=== PATIENT | female | born 1995 | race Caucasian/White ===

== ENCOUNTER 2017-08-28 21:28 | Emergency (ER) | payer OTHER, MEDICAID ==
[2017-08-28] MEDS: METHOCARBAMOL 500 MG TAB PO (22:43)
== END 2017-08-28 23:00 | disposition home or self-care (01) ==
LOC: M ED 21:28
DX: M62.838 Other muscle spasm (principal); J45.909 Unspecified asthma, uncomplicated
CPT/HCPCS: 99283

== ENCOUNTER 2017-12-01 21:16 | Emergency (ER) | payer OTHER | END 2017-12-01 23:35 | disposition home or self-care (01) | LOC: M ED 21:16 | DX: J02.8 Acute pharyngitis due to other specified organisms (principal); H92.03 Otalgia, bilateral; M79.1 Myalgia; J45.909 Unspecified asthma, uncomplicated | CPT/HCPCS: 87880 ==

== ENCOUNTER 2018-01-30 10:03 | Emergency (ER) | payer OTHER ==
[2018-01-30] MEDS: KETOROLAC 30 MG/ML VIAL (J1885) IV (11:27)
[2018-01-30] MEDS: dexameTHASONE 4 MG/ML 1ML VIAL (J1100) PO (11:34)
[2018-01-30] MEDS: CLINDAMYCIN 900 MG in APPROPRIATE DILUENT 1 EA IV (11:37)
[2018-01-30] MEDS: NS 1,000 ML IV (11:37)
[2018-01-30 11:41] LABS: BASO % 0.4 % (0.0-1.0); EOS % 0.5 % (0.0-3.0); HEMATOCRIT 43.8 % (36.0-47.0); HEMOGLOBIN 14.6 g/dl (12.0-15.5); IMMATURE GRANULOCYTE % 0.4 % (0-3.0); LYMPH # 0.7 10^3/uL (1.5-6.5); LYMPH % 9.7 % (24.0-44.0); MEAN CORPUSCULAR HEMOGLOBIN 31.2 pg (27.0-33.0); MEAN CORPUSCULAR HGB CONC 33.3 g/dl (32.0-36.5); MEAN CORPUSCULAR VOLUME 93.6 fl (80.0-96.0); MONO # 0.7 10^3/uL (0.0-0.8); MONO % 8.8 % (0.0-5.0); NEUTROPHILS # 6.1 10^3/uL (1.8-7.7); NEUTROPHILS % 80.2 % (36.0-66.0); PLATELET COUNT, AUTOMATED 208 10^3/uL (150-450); RED BLOOD COUNT 4.68 10^6/uL (4.00-5.40); RED CELL DISTRIBUTION WIDTH 12.1 % (11.5-14.5); WHITE BLOOD COUNT 7.5 10^3/uL (4.0-10.0)
[2018-01-30 12:18] LABS: ANION GAP 6 MEQ/L (8-16); BLOOD UREA NITROGEN 9 MG/DL (7-18); C REACTIVE PROTEIN QUANTITATIV 6.49 MG/DL (0.00-0.30); CALCIUM LEVEL 8.1 MG/DL (8.5-10.1); CARBON DIOXIDE LEVEL 26 MEQ/L (21-32); CHLORIDE LEVEL 107 MEQ/L (98-107); GLOMERULAR FILTRATION RATE > 60.0 (>60); GLUCOSE, FASTING 82 MG/DL (70-100); HCG, SERUM QUANTITATIVE < 1.0 MIU/ML; POTASSIUM SERUM 4.1 MEQ/L (3.5-5.1); SODIUM LEVEL 139 MEQ/L (136-145)
[2018-01-30] MEDS ORDERED: ISOVUE-370 76% 100ML VIAL (Q9967) As Ordered (12:48)
[2018-01-30 12:49] LABS: ERYTHROCYTE SEDIMENTATION RATE 8 mm/hr (0-20)
== END 2018-01-30 14:48 | disposition home or self-care (01) ==
LOC: M ED 10:03
DX: J03.90 Acute tonsillitis, unspecified (principal); I88.9 Nonspecific lymphadenitis, unspecified
CPT/HCPCS: Q9967

== ENCOUNTER 2018-07-04 16:30 | Emergency (ER) | payer MEDICAID, OTHER, SELFPAY ==
[~2018-07-04] VITALS: Ht 162.6 cm; Wt 113.6 kg
[~2018-07-04 16:30] MED LIST: AUGM875T28 PO; CLIN75REC PO; FLUO20CA19; IBUP-1022 PO; IBUP80TA PO; MAGICMW SSP; MAPA500T2 PO; PRED20TA PO; ROBA500T PO
[2018-07-04 18:53] LABS: APPEARANCE, URINE HAZY (CLEAR); BACTERIA, URINE AUTO NEGATIVE (NEGATIVE); BILIRUBIN, URINE AUTO NEGATIVE (NEGATIVE); BLOOD, URINE BLOOD 2+ (NEGATIVE); COLOR, URINE YELLOW (YELLOW); GLUCOSE, URINE (UA) AUTO NEGATIVE (NEGATIVE); KETONE, URINE AUTO NEGATIVE (NEGATIVE); LEUKOCYTE ESTERASE, URINE AUTO NEGATIVE (NEGATIVE); MUCUS, URINE SMALL (NEGATIVE); NITRITE, URINE AUTO NEGATIVE (NEGATIVE); PROTEIN, URINE AUTO NEGATIVE (NEGATIVE); RBC, URINE AUTO 2 /HPF (0-3); SPECIFIC GRAVITY URINE AUTO 1.025 (1.002-1.035); SQUAMOUS EPITHELIAL CELL UR AU 2 /HPF (0-6); UROBILINOGEN, URINE AUTO 0.2 mg/dL (0.0-2.0); WBC, URINE AUTO 1 /HPF (0-3)
[2018-07-04] MEDS ORDERED: NS 1,000 ML IV ONE (19:00)
[2018-07-04] MEDS ORDERED: MECLIZINE 25 MG TABLET PO ONE (19:00)
--- NOTE | 2018-07-04 19:36 | REPVR ---
EXAM: CT Head Without Contrast EXAM DATE/TIME: 07/04/2018 7:17 PM CLINICAL HISTORY: 23 years old, female; Signs and symptoms; Altered mental status/memory loss and dizziness; Additional info: Confusion today TECHNIQUE: Axial computed tomography images of the head/brain without contrast. All CT scans at this facility use at least one of these dose optimization techniques: automated exposure control; mA and/or kV adjustment per patient size (includes targeted exams where dose is matched to clinical indication); or iterative reconstruction. COMPARISON: No relevant prior studies available. FINDINGS: Brain: Normal. No hemorrhage. No significant white matter disease. No edema. Ventricles: Normal. No ventriculomegaly. Bones/joints: Unremarkable. No acute fracture. Sinuses: Visualized sinuses are unremarkable. No acute sinusitis. Mastoid air cells: Visualized mastoid air cells are unremarkable. No mastoid effusion. Soft tissues: Unremarkable. IMPRESSION: No acute intracranial abnormality. Electronically signed by: Shukri Willard On 07/04/2018 19:36:32 PM
--- NOTE | 2018-07-04 19:40 | REP ---
CHEST PA AND LATERAL: 07/04/2018. Clinical history: Confusion. Findings: No prior studies. The lung mo are well inflated. There is no infiltrate, effusion, atelectasis or mass. Heart, mediastinal and hilar contours are normal. Aorta and airway were grossly intact. Bones are unremarkable. No free air under the diaphragm. Impression: 1. No acute cardiopulmonary change. Electronically Signed by Chapincito Maier MD 07/04/2018 07:32 P
[2018-07-04 21:35] LABS: BASO % 0.5 % (0.0-1.0); EOS # 0.2 10^3/uL (0.0-0.50); EOS % 2.1 % (0.0-3.0); HEMATOCRIT 41.3 % (36.0-47.0); HEMOGLOBIN 13.8 g/dl (12.0-15.5); LYMPH # 2.3 10^3/uL (1.5-6.5); LYMPH % 30.6 % (24.0-44.0); MEAN CORPUSCULAR HGB CONC 33.4 g/dl (32.0-36.5); MEAN CORPUSCULAR VOLUME 92.8 fl (80.0-96.0); MONO # 0.5 10^3/uL (0.0-0.8); MONO % 6.8 % (0.0-5.0); NEUTROPHILS # 4.5 10^3/uL (1.8-7.7); NEUTROPHILS % 59.7 % (36.0-66.0); PLATELET COUNT, AUTOMATED 247 10^3/uL (150-450); RED BLOOD COUNT 4.45 10^6/uL (4.00-5.40); WHITE BLOOD COUNT 7.5 10^3/uL (4.0-10.0)
--- NOTE | 2018-07-04 21:45 | REPVR ---
EXAM: US Soft Tissue Head and Neck, Thyroid EXAM DATE/TIME: 07/04/2018 8:58 PM CLINICAL HISTORY: 23 years old, female; Pain; Neck pain; Additional info: Swelling/pain right neck, ? thyroiditis/nodule TECHNIQUE: Real-time ultrasound scan of the neck with image documentation. Exam focused on the thyroid. COMPARISON: CT Head without contrast 07/04/2018 7:08 PM FINDINGS: Left thyroid lobe: The left lobe of the thyroid measures 4.4 CM in length by 1.7 CM in thickness. There are 4 nodules of the left lobe of the thyroid ranging in size from 9 mm to 2.1 cm in greatest dimension. Right thyroid lobe: The right lobe of the thyroid measures 5 CM in length by 2.8 CM in thickness. There is a large solid vascular nodule replacing most of the right lobe of the thyroid which measures 4.5 CM by 3 CM. Because it is a very large dominant nodule I would recommend ultrasound-guided fine needle aspiration biopsy. The margins are mildly lobulated and the echo pattern is solid but irregular. Isthmus: The isthmus measures 7 mm in thickness. IMPRESSION: There is a 4.5 CM dominant solid and vascular nodule right lobe of the thyroid. I would recommend ultrasound-guided fine needle biopsy. Electronically signed by: Paul Benitez On 07/04/2018 21:45:14 PM
[2018-07-04 22:13] LABS: ALBUMIN 3.8 GM/DL (3.2-5.2); ALT/SGPT 31 U/L (12-78); BILIRUBIN,TOTAL 0.3 MG/DL (0.2-1.0); BLOOD UREA NITROGEN 9 MG/DL (7-18); CALCIUM LEVEL 8.2 MG/DL (8.5-10.1); CARBON DIOXIDE LEVEL 27 MEQ/L (21-32); CHLORIDE LEVEL 109 MEQ/L (98-107); CK-MB VALUE MASS < 1.0 NG/ML (<3.6); CPK CREATINE PHOSPHOKINASE 93 U/L (26-192); CREATININE FOR GFR 0.69 MG/DL (0.55-1.30); FREE THYROXINE INDEX 2.3 % (1.3-4.8); GLOMERULAR FILTRATION RATE > 60.0 (>60); GLUCOSE, FASTING 76 MG/DL (70-100); MB/CK RELATIVE INDEX 1.08 (< OR =4); SODIUM LEVEL 142 MEQ/L (136-145); T UPTAKE 31 % (30-39); THYROID STIMULATING HORMONE 0.727 uIU/ML (0.358-3.740); THYROXINE (T4) 7.5 UG/DL (4.5-12.0); TOTAL PROTEIN 6.8 GM/DL (6.4-8.2); TROPONIN I < 0.02 NG/ML (< 0.10)
[2018-07-04 22:36] VITALS: BP 123/72
[2018-07-04] MEDS ORDERED: MECL-68 PO (22:47)
--- NOTE | 2018-07-05 08:08 | ECGEPIP ---
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
[2018-07-05 13:56] LABS: VITAMIN B12 LEVEL 651 PG/ML (247-911)
--- NOTE | 2018-07-09 20:43 | ED PDOC ---
Post-Departure Follow-Up dr ramsye atkins faxed formal report of thyroid us for fu Rome García MD Jul 09, 2018 20:43
== END 2018-07-04 23:27 | disposition home or self-care (01) ==
LOC: M ED 16:30
DX: E04.1 Nontoxic single thyroid nodule (principal); R42 Dizziness and giddiness; J45.909 Unspecified asthma, uncomplicated; F33.9 Major depressive disorder, recurrent, unspecified; Z79.899 Other long term (current) drug therapy

== ENCOUNTER → 2018-09-11 | Outpatient (CLI) | payer OTHER, MEDICAID ==
[~2018-09-11] MED LIST changes: +MECL-68 PO
[2018-09-14 00:06] LABS: HSV IgM TYPES 1&2 <0.91 Ratio (0.00-0.90); HSV TYPE II IgG SPECIFIC <0.91 index (0.00-0.90)
== END ==
LOC: M SMT 13:44
PROVIDERS: ATTEND Advanced Practice Midwife
DX: Z11.3 Encounter for screening for infections with a predominantly sexual mode of transmission (principal)

== ENCOUNTER 2018-11-10 17:24 | Emergency (ER) | payer MEDICAID, OTHER ==
[~2018-11-10] VITALS: Ht 160 cm; Wt 104.5 kg
[2018-11-10 17:24] VITALS: BP 125/72
[2018-11-10] MEDS ORDERED: FLUO40CA (17:31)
[2018-11-10] MEDS ORDERED: LEVO0.1T (17:31)
[2018-11-10] MEDS ORDERED: FLUORESCEIN OPHTH 1 MG STRIP OS ONE (18:15)
[2018-11-10] MEDS ORDERED: TETRACAINE 0.5% OPHTH SOLN 4ML OS ONE (18:15)
[2018-11-10] MEDS ORDERED: CIPROFLOXACIN 0.3% OPHTH SOLN 2.5ML OS ONE (18:30)
[2018-11-10] MEDS ORDERED: CIPR0.3S OS (18:34)
== END 2018-11-10 18:48 | disposition home or self-care (01) ==
LOC: M ED 17:24
DX: S05.02XA Injury of conjunctiva and corneal abrasion without foreign body, left eye, initial encounter (principal); W26.2XXA Contact with edge of stiff paper, initial encounter; Y92.89 Other specified places as the place of occurrence of the external cause; Y99.0 Civilian activity done for income or pay; J45.909 Unspecified asthma, uncomplicated; Z79.899 Other long term (current) drug therapy; Z79.3 Long term (current) use of hormonal contraceptives

== ENCOUNTER 2019-01-11 12:39 | Day surgery (SDC) | payer OTHER ==
[~2019-01-11] VITALS: Ht 162.6 cm; Wt 104.5 kg
[~2019-01-11 12:39] MED LIST changes: +CIPR0.3S OS; +FLUO40CA; +FLUO40CA PO; +LEVO0.1T PO; +LR 1,000 ML IV ONE; -MECL-68 PO; +MECL1TAB31 PO
[2019-01-11 13:32] LABS: HEMOGLOBIN 13.1 g/dl (12.0-15.5); MEAN CORPUSCULAR HEMOGLOBIN 30.7 pg (27.0-33.0); MEAN CORPUSCULAR HGB CONC 33.6 g/dl (32.0-36.5); MEAN CORPUSCULAR VOLUME 91.3 fl (80.0-96.0); PLATELET COUNT, AUTOMATED 279 10^3/uL (150-450); RED BLOOD COUNT 4.27 10^6/uL (4.00-5.40); WHITE BLOOD COUNT 6.8 10^3/uL (4.0-10.0)
[2019-01-11 13:52] LABS: URINE PREG TEST NEGATIVE (NEGATIVE)
[2019-01-11] MEDS ORDERED: ONDANSETRON 4MG/2ML VIAL (J2405) As Ordered ONE (14:50)
[2019-01-11] MEDS ORDERED: dexameTHASONE 4 MG/ML 1ML VIAL (J1100) As Ordered ONE (14:50)
[2019-01-11] MEDS ORDERED: KETOROLAC 60 MG/2 ML VIAL (J1885) As Ordered ONE (14:50)
[2019-01-11] MEDS ORDERED: propofoL 200 MG/20 ML VIAL As Ordered ONE (14:50)
[2019-01-11] MEDS ORDERED: LIDOCAINE 2% INJ 100 MG/5 ML SDV (FOR ANES.) As Ordered ONE (14:50)
[2019-01-11] MEDS ORDERED: ROCURONIUM BROMIDE 50 MG/5 ML VIAL As Ordered ONE (14:50)
[2019-01-11] MEDS ORDERED: ACETAMINOPHEN 1000MG 100ML IV BTL (OFIRMEV) (J0131 PER 10MG) As Ordered ONE (14:50)
[2019-01-11] MEDS ORDERED: fentaNYL 100 MCG/2 ML INJECTION (J3010) As Ordered ONE ×2 (14:51→16:51)
[2019-01-11] MEDS ORDERED: MIDAZOLAM INJ 2 MG/2 ML VIAL (J2250) As Ordered ONE (14:51)
[2019-01-11] MEDS ORDERED: METOCLOPRAMIDE INJ 10MG/2ML VIAL (J2765) As Ordered ONE (15:27)
[2019-01-11] MEDS ORDERED: BUPIVACAINE HCL 0.25% 30 ML VIAL As Ordered ONE (15:40)
[2019-01-11] MEDS ORDERED: LIDOCAINE 2% JELLY 6 ML SYRINGE As Ordered ONE (16:14)
[2019-01-11] MEDS ORDERED: SUGAMMADEX SODIUM 500 MG/5 ML VIAL (BRIDION) As Ordered ONE (16:19)
[2019-01-11] MEDS ORDERED: PHENYLephrine HCL 500 MCG/5 ML (100MCG/ML) SYRINGE (J2370) As Ordered ONE (16:20)
[2019-01-11] MEDS ORDERED: DESFLURANE 240 ML INHALANT As Ordered ONE ×2 (16:34→16:35)
[2019-01-11] MEDS ORDERED: OXYC1TAB23 PO (17:07)
[2019-01-11] MEDS ORDERED: IBUP-1022 PO (17:08)
[2019-01-11 19:21] VITALS: BP 119/72
--- NOTE | 2019-01-11 23:14 | RO ---
DATE OF PROCEDURE: 01/11/2019 PREPROCEDURE DIAGNOSIS: Undesired fertility. POSTPROCEDURE DIAGNOSIS: Undesired fertility. PROCEDURE: Laparoscopic right salpingectomy. SURGEON: Charly Sarmiento MD NAIL KEGGER: ANESTHESIA: General endotracheal. ESTIMATED BLOOD LOSS: 10 mL URINE OUTPUT: 200 mL. FINDINGS: Surgically absent left ovary and fallopian tube. Normal appearing right ovary and fallopian tube. Normal upper abdomen. DESCRIPTION OF PROCEDURE: The patient was taken to the operating room where general endotracheal anesthesia was induced. She was prepped and draped in a sterile fashion in the dorsal lithotomy position. The bladder was emptied with a catheter. A sponge stick was placed in the vagina to use as a manipulator. A periumbilical incision was made with a scalpel. A Veress needle was placed through the incision while tenting up on the skin of the abdomen. Intraabdominal location of the Veress needle was assessed with the use of a saline-filled syringe. A pneumoperitoneum was created. The Veress needle was removed. 5 mm trocar using Visiport was inserted through this incision, 5 and 8 mm suprapubic port respectively were placed under direct visualization. A grasping instrument used to elevate the right fallopian tube and a LigaSure device was used to coagulate and incise broad ligament attachments to the tube. The tube was then amputated near its origin. The tube was removed through the suprapubic port. The pneumoperitoneum was released. All instruments were removed. The skin was closed with #4-0 Monocryl subcuticular sutures. Sponge, instrument and needle counts were correct.
== END 2019-01-11 19:21 | disposition home or self-care (01) ==
LOC: M SDC 12:39
PROVIDERS: ATTEND Specialist
DX: Z30.2 Encounter for sterilization (principal); J45.909 Unspecified asthma, uncomplicated; Z91.018 Allergy to other foods; Z79.899 Other long term (current) drug therapy; F32.9 Major depressive disorder, single episode, unspecified
CPT/HCPCS: 36415; 58661; 84703; 85027; 88302; J0131; J1100; J1885; J2250; J2370; J2405; J2765; J3010

== ENCOUNTER 2019-05-17 18:54 | Emergency (ER) | payer OTHER ==
[~2019-05-17] VITALS: Ht 162.6 cm; Wt 105.7 kg
[~2019-05-17 18:54] MED LIST changes: -LR 1,000 ML IV ONE; +MECL-68 PO; -MECL1TAB31 PO; +OXYC1TAB23 PO
[2019-05-17 22:20] LABS: APPEARANCE, URINE HAZY (CLEAR); BACTERIA, URINE AUTO 3+ (NEGATIVE); BILIRUBIN, URINE AUTO NEGATIVE (NEGATIVE); BLOOD, URINE BLOOD 2+ (NEGATIVE); COLOR, URINE YELLOW (YELLOW); GLUCOSE, URINE (UA) AUTO NEGATIVE (NEGATIVE); KETONE, URINE AUTO NEGATIVE (NEGATIVE); LEUKOCYTE ESTERASE, URINE AUTO 1+ (NEGATIVE); MUCUS, URINE SMALL (NEGATIVE); NITRITE, URINE AUTO POSITIVE (NEGATIVE); PROTEIN, URINE AUTO NEGATIVE (NEGATIVE); RBC, URINE AUTO 8 /HPF (0-3); SPECIFIC GRAVITY URINE AUTO 1.025 (1.002-1.035); SQUAMOUS EPITHELIAL CELL UR AU 2 /HPF (0-6); UROBILINOGEN, URINE AUTO 0.2 mg/dL (0.0-2.0); WBC, URINE AUTO 22 /HPF (0-3)
[2019-05-17 22:24] VITALS: BP 134/94
[2019-05-17] MEDS ORDERED: MACR100C43 PO (22:37)
[2019-05-17] MEDS ORDERED: NITROFURANTOIN (MACROBID) 100 MG CAP PO ONE (22:45)
== END 2019-05-17 22:56 | disposition home or self-care (01) ==
LOC: M ED 18:54
DX: N39.0 Urinary tract infection, site not specified (principal); G47.00 Insomnia, unspecified; J30.81 Allergic rhinitis due to animal (cat) (dog) hair and dander; Z91.018 Allergy to other foods

== ENCOUNTER 2019-06-23 06:43 | Emergency (ER) | payer OTHER ==
[~2019-06-23] VITALS: Ht 162.6 cm; Wt 106.1 kg
[~2019-06-23 06:43] MED LIST changes: -FLUO20CA19; +FLUO20CA22; +MACR100C43 PO; -MECL-68 PO; +MECL1TAB31 PO
[2019-06-23 06:44] VITALS: BP 140/90
[2019-06-23] MEDS ORDERED: AUGM875T28 PO (07:17)
[2019-06-23] MEDS ORDERED: AUGMENTIN 875 MG TAB PO ONE (07:30)
== END 2019-06-23 07:37 | disposition home or self-care (01) ==
LOC: M ED 06:43
DX: H66.93 Otitis media, unspecified, bilateral (principal); J30.81 Allergic rhinitis due to animal (cat) (dog) hair and dander; Z91.018 Allergy to other foods

== ENCOUNTER 2020-04-02 17:32 | Emergency (ER) | payer OTHER ==
[~2020-04-02] VITALS: Ht 162.6 cm; Wt 113.6 kg
[~2020-04-02 17:32] MED LIST changes: -CIPR0.3S OS; +CIPR0.3S6 OS
[2020-04-02 20:18] LABS: BASO % 0.3 % (0.0-1.0); EOS # 0.1 10^3/uL (0.0-0.5); EOS % 0.7 % (0.0-3.0); HEMATOCRIT 39.8 % (36.0-47.0); HEMOGLOBIN 12.7 g/dl (12.0-15.5); LYMPH # 2.2 10^3/uL (1.5-5.0); LYMPH % 20.3 % (24.0-44.0); MEAN CORPUSCULAR HEMOGLOBIN 29.6 pg (27.0-33.0); MEAN CORPUSCULAR HGB CONC 31.9 g/dl (32.0-36.5); MEAN CORPUSCULAR VOLUME 92.8 fl (80.0-96.0); MONO # 0.7 10^3/uL (0.0-0.8); MONO % 6.4 % (0.0-5.0); NEUTROPHILS # 7.7 10^3/uL (1.5-8.5); NEUTROPHILS % 72.1 % (36.0-66.0); PLATELET COUNT, AUTOMATED 257 10^3/uL (150-450); RED BLOOD COUNT 4.29 10^6/uL (4.00-5.40); WHITE BLOOD COUNT 10.7 10^3/uL (4.0-10.0)
[2020-04-02 20:45] LABS: HCG, SERUM QUALITATIVE NEGATIVE (NEGATIVE)
[2020-04-02 21:02] LABS: BLOOD UREA NITROGEN 10 MG/DL (7-18); CALCIUM LEVEL 8.4 MG/DL (8.5-10.1); CARBON DIOXIDE LEVEL 26 MEQ/L (21-32); CHLORIDE LEVEL 111 MEQ/L (98-107); CREATININE FOR GFR 0.65 MG/DL (0.55-1.30); FREE T4 0.98 NG/DL (0.76-1.46); GLOMERULAR FILTRATION RATE > 60.0 (>60); GLUCOSE, FASTING 75 MG/DL (70-100); POTASSIUM SERUM 4.2 MEQ/L (3.5-5.1); SODIUM LEVEL 143 MEQ/L (136-145); THYROID STIMULATING HORMONE 0.473 uIU/ML (0.358-3.740)
[2020-04-02] MEDS ORDERED: ISOVUE-370 76% 100ML VIAL As Ordered ONE (21:19)
--- NOTE | 2020-04-02 21:45 | REPVR ---
PROCEDURE INFORMATION: Exam: CT Neck With Contrast Exam date and time: 04/02/2020 9:32 PM Age: 24 years old Clinical indication: Dysphagia / difficulty swallowing; Additional info: Dysphaia/fells throat swollen TECHNIQUE: Imaging protocol: Computed tomography images of the neck with intravenous contrast. Radiation optimization: All CT scans at this facility use at least one of these dose optimization techniques: automated exposure control; mA and/or kV adjustment per patient size (includes targeted exams where dose is matched to clinical indication); or iterative reconstruction. Contrast material: ISOVUE 370; Contrast volume: 75 ml; Contrast route: INTRAVENOUS (IV); COMPARISON: CT Neck with contrast 01/30/2018 12:41 PM FINDINGS: Paranasal sinuses: Small mucous retention cyst or polyp involving the right maxillary sinus. Nasopharynx: Unremarkable. Oropharynx: There is prominence of both palatine tonsils. No inflammatory change or drainable fluid collection. Hypopharynx: Unremarkable. Larynx: Unremarkable. Normal epiglottis. Retropharyngeal space: Unremarkable. Submandibular/Parotid glands: Normal. Glands are normal in size. Thyroid: 3.5 cm right thyroid mass. 1.2 cm left thyroid nodule. Lymph nodes: Unremarkable. No lymphadenopathy. Trachea: Visualized trachea is unremarkable. Lungs: Unremarkable as visualized. Bones/joints: Unremarkable. No acute fracture. Soft tissues: See "Oropharynx" finding. IMPRESSION: 1. No acute abnormality. 2. 3.5 cm right thyroid mass. Biopsy may be considered if not already performed. COMMENTS: Consistent with the [employer]'s Incidental Findings Committee white paper (J Am Emilio Radiol 2015): In patients under 35 years old with an incidental thyroid nodule equal to or greater than [address], MRI or extrathyroidal US, further evaluation with dedicated thyroid US is recommended for patients with normal life expectancy and without comorbidities. For smaller nodules without suspicious features, no further evaluation or follow up is recommended. Electronically signed by: Camilo Robledo On 04/02/2020 21:45:04 PM
[2020-04-02 22:27] VITALS: BP 132/83
--- NOTE | 2020-04-04 17:05 | ED PDOC ---
Post-Departure Follow-Up familia abreu and cholo faxed formal report of ct neck for fu geraldog Rome Arreola MD Apr 04, 2020 17:05
== END 2020-04-02 22:34 | disposition home or self-care (01) ==
LOC: M ED 17:32
DX: E07.89 Other specified disorders of thyroid (principal); J30.81 Allergic rhinitis due to animal (cat) (dog) hair and dander; Z91.018 Allergy to other foods
CPT/HCPCS: 70491; 80048; 84439; 84443; 84703; 85025; 87880; 99285; Q9967

== ENCOUNTER → 2020-07-16 | Outpatient (CLI) | payer OTHER ==
--- NOTE | 2020-07-16 11:37 | REP ---
INDICATION: THYROID MASS COMPARISON: 07/04/2018 TECHNIQUE: Steel scale and color evaluation of the thyroid gland using the linear high frequency transducer. FINDINGS: The right thyroid lobe measures 4.7 x 3.5 x 3.2 cm and is dominated by large heterogeneous vascular mass measuring roughly 3.8 x 2.8 x 2.9 cm. Isthmus measures 6 mm in width with a new 3 mm cyst. Left thyroid lobe measures 4.0 x 2.0 x 1.9 cm with 1.4 x 1.3 x 0.9 cm complex vascular mid/upper pole lesion relatively stable compared to prior examination, 2.4 x 1.6 x 1.6 cm heterogeneous midpole lesion relatively unchanged from prior examination, and 1.1 x 1.0 x 1.0 cm lower pole heterogeneous nodule essentially unchanged from prior examination. IMPRESSION: Thyroid nodules as described above relatively similar to prior examination <Electronically signed by Stanislav Gonzales > 07/16/20 [id number]
== END ==
LOC: M RAD 08:18
DX: E07.9 Disorder of thyroid, unspecified (principal)

== ENCOUNTER 2021-01-30 12:21 | Emergency (ER) | payer OTHER ==
[~2021-01-30] VITALS: Ht 162.6 cm; Wt 113.6 kg
[~2021-01-30 12:21] MED LIST changes: +BUPR150T5; +LORA-674
[2021-01-30 12:22] VITALS: BP 144/100
[2021-01-30] MEDS ORDERED: EUTH175T (12:30)
--- NOTE | 2021-01-30 13:34 | REP ---
INDICATION: pain/injury. COMPARISON: None. TECHNIQUE: Four views FINDINGS: No acute fracture or destructive osseous lesion. There is a slight ulnar minus variant. IMPRESSION: No acute osseous abnormality. <Electronically signed by Stuart Gardner > 01/30/21 [id number]
[2021-01-30 14:30] LABS: APPEARANCE, URINE CLEAR (CLEAR); BILIRUBIN, URINE AUTO NEGATIVE (NEGATIVE); BLOOD, URINE BLOOD 1+ (NEGATIVE); COLOR, URINE YELLOW (YELLOW); GLUCOSE, URINE (UA) AUTO NEGATIVE (NEGATIVE); KETONE, URINE AUTO NEGATIVE (NEGATIVE); LEUKOCYTE ESTERASE, URINE AUTO NEGATIVE (NEGATIVE); NITRITE, URINE AUTO NEGATIVE (NEGATIVE); PROTEIN, URINE AUTO NEGATIVE (NEGATIVE); SPECIFIC GRAVITY URINE AUTO 1.021 (1.002-1.035); UROBILINOGEN, URINE AUTO 0.2 mg/dL (0.0-2.0)
[2021-01-30 14:34] LABS: BACTERIA, URINE AUTO NEGATIVE (NEGATIVE); MUCUS, URINE SMALL (NEGATIVE); RBC, URINE AUTO 7 /HPF (0-3); SQUAMOUS EPITHELIAL CELL UR AU 2 /HPF (0-6); WBC, URINE AUTO 1 /HPF (0-3)
[2021-01-30 14:56] LABS: ACETONE/KETONE 1.05 MG/DL (<2.81); ALBUMIN 3.2 GM/DL (3.2-5.2); ALT/SGPT 32 U/L (12-78); BILIRUBIN,DIRECT 0.1 MG/DL (0.0-0.2); BILIRUBIN,TOTAL 0.2 MG/DL (0.2-1.0); BLOOD UREA NITROGEN 9 MG/DL (7-18); CALCIUM LEVEL 8.1 MG/DL (8.5-10.1); CARBON DIOXIDE LEVEL 24 MEQ/L (21-32); CHLORIDE LEVEL 110 MEQ/L (98-107); CREATININE FOR GFR 0.68 MG/DL (0.55-1.30); FREE T4 1.56 NG/DL (0.76-1.46); GLOMERULAR FILTRATION RATE > 60.0 (>60); GLUCOSE, FASTING 85 MG/DL (70-100); POTASSIUM SERUM 4.1 MEQ/L (3.5-5.1); SODIUM LEVEL 142 MEQ/L (136-145); THYROID STIMULATING HORMONE < 0.005 uIU/ML (0.358-3.740); TOTAL PROTEIN 6.2 GM/DL (6.4-8.2)
[2021-01-30] MEDS ORDERED: NAPR-837 PO (15:24)
[2021-01-30] MEDS ORDERED: LEVO112T2 PO (15:24)
== END 2021-01-30 15:40 | disposition home or self-care (01) ==
LOC: M ED 12:21
DX: S63.91XA Sprain of unspecified part of right wrist and hand, initial encounter (principal); X50.3XXA Overexertion from repetitive movements, initial encounter; Y92.89 Other specified places as the place of occurrence of the external cause; Y93.89 Activity, other specified; R94.6 Abnormal results of thyroid function studies; Z85.850 Personal history of malignant neoplasm of thyroid; Z90.89 Acquired absence of other organs; Z91.048 Other nonmedicinal substance allergy status; Z88.1 Allergy status to other antibiotic agents; Z91.018 Allergy to other foods

== ENCOUNTER 2021-02-04 14:59 | Emergency (ER) | payer OTHER ==
[~2021-02-04] VITALS: Ht 162.6 cm; Wt 115.9 kg
[~2021-02-04 14:59] MED LIST changes: +EUTH175T; +LEVO112T2 PO; +NAPR-837 PO
[2021-02-04 15:00] VITALS: BP 151/100
== END 2021-02-04 18:20 | disposition left against medical advice (07) ==
LOC: M ED 14:59
DX: Z53.21 Procedure and treatment not carried out due to patient leaving prior to being seen by health care provider (principal)

== ENCOUNTER 2021-04-02 10:52 | Emergency (ER) | payer OTHER ==
[~2021-04-02] VITALS: Ht 162.6 cm; Wt 115.8 kg
--- OUTSIDE RECORDS SUMMARY | 2021-04-02 11:03 | CCD ---
Author Author [facility] Organization [facility] Address Unknown Phone Unavailable Care Team Providers Care Branch Account Executive Name Role Phone Nikole Joaquin Unavailable Unavailable Marzouk, F Ousmane Unavailable Unavailable Marzouk, F Ousmane Unavailable Unavailable Marzouk, F Ousmane Unavailable Unavailable Marzouk, F Ousmane Unavailable Unavailable Marzouk, F Ousmane Unavailable Unavailable Marzouk, F Ousmane Unavailable Unavailable Marzouk, F Ousmane Unavailable Unavailable Marzouk, F Ousmane Unavailable Unavailable Marzouk, F Ousmane Unavailable Unavailable Marzouk, F Ousmane Unavailable Unavailable Marzouk, F Ousmane Unavailable Unavailable Marzouk, F Ousmane Unavailable Unavailable Marzouk, F Ousmane Unavailable Unavailable Marzouk, F Ousmane Unavailable Unavailable Marzouk, F Ousmane Unavailable Unavailable Marzouk, F Ousmane Unavailable Unavailable Marzouk, F Ousmane Unavailable Unavailable Marzouk, F Ousmane Unavailable Unavailable Marzouk, F Ousmane Unavailable Unavailable Marzouk, F Ousmane Unavailable Unavailable Marzouk, F Ousmane Unavailable Unavailable Marzouk, F Ousmane Unavailable Unavailable Marzouk, F Ousmane Unavailable Unavailable Marzouk, F Ousmane Unavailable Unavailable Marzouk, F Ousmane Unavailable Unavailable Marzouk, F Ousmane Unavailable Unavailable Marzouk, F Ousmane Unavailable Unavailable Marzouk, F Ousmane Unavailable Unavailable Marzouk, F Ousmane Unavailable Unavailable Marzouk, F Ousmane Unavailable Unavailable Marzouk, F Ousmane Unavailable Unavailable Marzouk, F Ousmane Unavailable Unavailable Marzouk, F Ousmane Unavailable Unavailable Marzouk, F Ousmane Unavailable Unavailable Marzouk, F Ousmane Unavailable Unavailable Marzouk, F Ousmane Unavailable Unavailable Marzouk, F Ousmane Unavailable Unavailable Marzouk, F Ousmane Unavailable Unavailable Marzouk, F Ousmane Unavailable Unavailable Marzouk, F Ousmane Unavailable Unavailable Marzouk, F Ousmane Unavailable Unavailable Marzouk, F Ousmane Unavailable Unavailable Marzouk, F Ousmane Unavailable Unavailable Marzouk, F Ousmane Unavailable Unavailable Marzouk, F Ousmane Unavailable Unavailable Marzouk, F Ousmane Unavailable Unavailable Marzouk, F Ousmane Unavailable Unavailable Marzouk, F Ousmane Unavailable Unavailable Marzouk, F Ousmane Unavailable Unavailable Marzouk, F Ousmane Unavailable Unavailable Marzouk, F Ousmane Unavailable Unavailable Marzouk, F Ousmane Unavailable Unavailable Marzouk, F Ousmane Unavailable Unavailable Marzouk, F Ousmane Unavailable Unavailable Marzouk, F Ousmane Unavailable Unavailable Marzouk, F Ousmane Unavailable Unavailable Marzouk, F Ousmane Unavailable Unavailable Marzouk, F Ousmane Unavailable Unavailable Marzouk, F Ousmane Unavailable Unavailable Marzouk, F Ousmane Unavailable Unavailable Marzouk, F Ousmane Unavailable Unavailable Marzouk, F Ousmane Unavailable Unavailable Marzouk, F Ousmane Unavailable Unavailable Marzouk, F Ousmaen Unavailable Unavailable Marzouk, F Ousmane Unavailable Unavailable Marzouk, F Ousmane Unavailable Unavailable Marzouk, F Ousmane Unavailable Unavailable Arnett, M Shazia PA-C Unavailable Unavailable Arnett, M Shazia PA-C Unavailable Unavailable Arnett, M Shazia PA-C Unavailable Unavailable Arnett, M Shazia PA-C Unavailable Unavailable Arnett, M Shazia PA-C Unavailable Unavailable Arnett, M Shazia PA-C Unavailable Unavailable Arnett, M Shazia PA-C Unavailable Unavailable Arnett, M Shazia PA-C Unavailable Unavailable Arnett, M Shazia PA-C Unavailable Unavailable Arnett, M Shazia PA-C Unavailable Unavailable Arnett, M Shazia PA-C Unavailable Unavailable Arnett, M Shazia PA-C Unavailable Unavailable Arnett, M Shazia PA-C Unavailable Unavailable Arnett, M Shazia PA-C Unavailable Unavailable Arnett, M Shazia PA-C Unavailable Unavailable Arnett, M Shazia PA-C Unavailable Unavailable Arnett, M Shazia PA-C Unavailable Unavailable Arnett, M Shazia PA-C Unavailable Unavailable Arnett, M Shazia PA-C Unavailable Unavailable Arnett, M Shazia PA-C Unavailable Unavailable Arnett, M Shazia PA-C Unavailable Unavailable Arnett, M Shazia PA-C Unavailable Unavailable Arnett, M Shazia PA-C Unavailable Unavailable Arnett, M Shazia PA-C Unavailable Unavailable Arnett, M Shazia PA-C Unavailable Unavailable Arnett, M Shazia PA-C Unavailable Unavailable Arnett, M Shazia PA-C Unavailable Unavailable Arnett, M Shazia PA-C Unavailable Unavailable Arnett, M Shazia PA-C Unavailable Unavailable Arnett, M Shazia PA-C Unavailable Unavailable Arnett, M Shazia PA-C Unavailable Unavailable Arnett, M Shazia PA-C Unavailable Unavailable Arnett, M Shazia PA-C Unavailable Unavailable Arnett, M Shazia PA-C Unavailable Unavailable Arnett, M Shazia PA-C Unavailable Unavailable Arnett, M Shazia PA-C Unavailable Unavailable Arnett, M Shazia PA-C Unavailable Unavailable Arnett, M Shazia PA-C Unavailable Unavailable Nalla, Jenny Unavailable Nalla, Jenny Unavailable Nalla, Jenny Unavailable JASON, Dang TELLO MD Unavailable Unavailable JASON, Dang TELLO MD Unavailable Unavailable JASON, Dang TELLO MD Unavailable Unavailable JASON, Dang TELLO MD Unavailable Unavailable JASON, Dang TELLO MD Unavailable Unavailable JASON, Dang TELLO MD Unavailable Unavailable JASON, Dang TELLO MD Unavailable Unavailable JASON, Dang TELLO MD Unavailable Unavailable JASON, Dang TELLO MD Unavailable Unavailable JASON, Dang TELLO MD Unavailable Unavailable JASON, Dang TELLO MD Unavailable Unavailable JASON, Dang TELLO MD Unavailable Unavailable JASON, Dang TELLO MD Unavailable Unavailable JASON, Dang TELLO MD Unavailable Unavailable JASON, Dang TELLO MD Unavailable Unavailable JASON, Dang TELLO MD Unavailable Unavailable JASON, Dang TELLO MD Unavailable Unavailable JASON, Dang TELLO MD Unavailable Unavailable JASON, Dang TELLO MD Unavailable Unavailable JASON, Dang TELLO MD Unavailable Unavailable JASON, Dang TELLO MD Unavailable Unavailable JASON, Dang TELLO MD Unavailable Unavailable JASON, Dang TELLO MD Unavailable Unavailable JASON, Dang TELLO MD Unavailable Unavailable JASON, Dang TELLO MD Unavailable Unavailable JASON, Dang TELLO MD Unavailable Unavailable JASON, Dang TELLO MD Unavailable Unavailable JASON, Dang TELLO MD Unavailable Unavailable JASON, aDng TELLO MD Unavailable Unavailable JASON, Dang TELLO MD Unavailable Unavailable JASON, Dang TELLO MD Unavailable Unavailable JASON, Dang TELLO MD Unavailable Unavailable JASON, Dang TELLO MD Unavailable Unavailable JASON, Dang TELLO MD Unavailable Unavailable JASON, Dang TELLO MD Unavailable Unavailable JASON, Dang TELLO MD Unavailable Unavailable JASON, Dang TELLO MD Unavailable Unavailable JASON, Dang TELLO MD Unavailable Unavailable JASON, Dang TELLO MD Unavailable Unavailable JASON, Dang TELLO MD Unavailable Unavailable JASON, Dang TELLO MD Unavailable Unavailable JASON, Dang TELLO MD Unavailable Unavailable JASON, Dang TELLO MD Unavailable Unavailable JASON, Dang TELLO MD Unavailable Unavailable JASON, Dang TELLO MD Unavailable Unavailable JASON, Dang TELLO MD Unavailable Unavailable JASON, Dang TELLO MD Unavailable Unavailable JASON, Dang TELLO MD Unavailable Unavailable JASON, Dang TELLO MD Unavailable Unavailable JASON, Dang TELLO MD Unavailable Unavailable JASON, Dang TELLO MD Unavailable Unavailable JASON, Dang TELLO MD Unavailable Unavailable JASON, Dang TELLO MD Unavailable Unavailable JASON, Dang TELLO MD Unavailable Unavailable JASON, Dang TELLO MD Unavailable Unavailable JASON, Dang TELLO MD Unavailable Unavailable JASON, Dang TELLO MD Unavailable Unavailable JASON, Dang TELLO MD Unavailable Unavailable Terell KC Unavailable Unavailable MARROCKY, Shefali BURNHAM MD Unavailable Unavailable MARZOUK, A CHACHA MD Unavailable Unavailable MARZOUK, A CHACHA MD Unavailable Unavailable MARZOUK, A CHACHA MD Unavailable Unavailable MARZOUK, A CHACHA MD Unavailable Unavailable MARZOUK, A CHACHA MD Unavailable Unavailable MARZOUK, A CHACHA MD Unavailable Unavailable MARZOUK, A CHACHA MD Unavailable Unavailable MARZOUK, A CHACHA MD Unavailable Unavailable MARZOUK, A CHACHA MD Unavailable Unavailable MARZOUK, A CHACHA MD Unavailable Unavailable MARZOUK, A CHACHA MD Unavailable Unavailable MARZOUK, A CHACHA MD Unavailable Unavailable MARZOUK, A CHACHA MD Unavailable Unavailable MARZOUK, A CHACHA MD Unavailable Unavailable MARZOUK, A CHACHA MD Unavailable Unavailable MARZOUK, A CHACHA MD Unavailable Unavailable MARZOUK, A CHACHA MD Unavailable Unavailable MARZOUK, A CHACHA MD Unavailable Unavailable MARZOUK, A CHACHA MD Unavailable Unavailable MARZOUK, A CHACHA MD Unavailable Unavailable MARZOUK, A CHACHA MD Unavailable Unavailable MARZOUK, A CHACHA MD Unavailable Unavailable MARZOUK, A CHACHA MD Unavailable Unavailable MARZOUK, A CHACHA MD Unavailable Unavailable MARZOUK, A CHACHA MD Unavailable Unavailable MARZOUK, A CHACHA MD Unavailable Unavailable MARZOUK, A CHACHA MD Unavailable Unavailable MARZOUK, A CHACHA MD Unavailable Unavailable MARZOUK, A CHACHA MD Unavailable Unavailable MARZOUK, A CHACHA MD Unavailable Unavailable MARZOUK, A CHACHA MD Unavailable Unavailable MARZOUK, A CHACHA MD Unavailable Unavailable MARZOUK, A CHACHA MD Unavailable Unavailable MARZOUK, A CHACHA MD Unavailable Unavailable MARZOUK, A CHACHA MD Unavailable Unavailable MARZOUK, A CHACHA MD Unavailable Unavailable MARZOUK, A CHACHA MD Unavailable Unavailable MARZOUK, A CHACHA MD Unavailable Unavailable MARZOUK, A CHACHA MD Unavailable Unavailable MARZOUK, A CHACHA MD Unavailable Unavailable MARZOUK, A CHACHA MD Unavailable Unavailable MARZOUK, A CHACHA MD Unavailable Unavailable MARZOUK, A CHACHA MD Unavailable Unavailable MARZOUK, A CHACHA MD Unavailable Unavailable MARZOUK, A CHACHA MD Unavailable Unavailable MARZOUK, A CHACAH MD Unavailable Unavailable MARZOUK, A CHACHA MD Unavailable Unavailable MARZOUK, A CHACHA MD Unavailable Unavailable MARZOUK, A CHACHA MD Unavailable Unavailable MARZOUK, A CHACHA MD Unavailable Unavailable MARZOUK, A CHACHA MD Unavailable Unavailable MARZOUK, Shefali BURNHAM MD Unavailable Unavailable MARZOUK, Shefali BURNHAM MD Unavailable Unavailable MARZOUK, Shefali BURNHAM MD Unavailable Unavailable MARZOUK, Shefali BURNHAM MD Unavailable Unavailable MARZOUK, Shefali BURNHAM MD Unavailable Unavailable MARZOUK, Shefali BURNHAM MD Unavailable Unavailable MARZOUK, Shefali BURNHAM MD Unavailable Unavailable MARZOUK, Shefali BURNHAM MD Unavailable Unavailable MARZOUK, Shefali BURNHAM MD Unavailable Unavailable MARZOUK, Shefali BURNHAM MD Unavailable Unavailable MARZOUK, Shefali BURNHAM MD Unavailable Unavailable MARZOUK, Shefali BURNHAM MD Unavailable Unavailable NALLA, JENNY Unavailable Unavailable Ruffin, M Christopher PA-C Unavailable Unavailable Ruffin, M Christopher PA-C Unavailable Unavailable Ruffin, M Christopher PA-C Unavailable Unavailable Ruffin, M Christopher PA-C Unavailable Unavailable Ruffin, M Christopher PA-C Unavailable Unavailable Ruffin, M Christopher PA-C Unavailable Unavailable Ruffin, M Christopher PA-C Unavailable Unavailable Ruffin, M Christopher PA-C Unavailable Unavailable Ruffin, M Christopher PA-C Unavailable Unavailable Ruffin, M Christopher PA-C Unavailable Unavailable Ruffin, M Christopher PA-C Unavailable Unavailable Ruffin, M Christopher PA-C Unavailable Unavailable Ruffin, M Christopher PA-C Unavailable Unavailable Ruffin, M Christopher PA-C Unavailable Unavailable Ruffin, M Christopher PA-C Unavailable Unavailable Ruffin, M Christopher PA-C Unavailable Unavailable Ruffin, M Christopher PA-C Unavailable Unavailable Ruffin, M Christopher PA-C Unavailable Unavailable Ruffin, M Christopher PA-C Unavailable Unavailable Ruffin, M Christopher PA-C Unavailable Unavailable Ruffin, M Christopher PA-C Unavailable Unavailable Ruffin, M Christopher PA-C Unavailable Unavailable Ruffin, M Christopher PA-C Unavailable Unavailable Ruffin, M Christopher PA-C Unavailable Unavailable Ruffin, M Christopher PA-C Unavailable Unavailable Ruffin, M Christopher PA-C Unavailable Unavailable SEAN .Neal RODGER . Unavailable Unavailable Neal DELGADO . Unavailable Unavailable Robert Lorenzo MD Unavailable Unavailable Robert Lorenzo MD Unavailable Unavailable Robert Lorenzo MD Unavailable Unavailable Robert Lorenzo MD Unavailable Unavailable Re-disclosure Warning The records that you are about to access may contain information from federally-assisted alcohol or drug abuse programs. If such information is present, then the following federally mandated warning applies: This information has been disclosed to you from records protected by federal confidentiality rules (42 CFR part 2). The federal rules prohibit you from making any further disclosure of this information unless further disclosure is expressly permitted by the written consent of the person to whom it pertains or as otherwise permitted by 42 CFR part 2. A general authorization for the release of medical or other information is NOT sufficient for this purpose. The Federal rules restrict any use of the information to criminally investigate or prosecute any alcohol or drug abuse patient.The records that you are about to access may contain highly sensitive health information, the redisclosure of which is protected by Article 27-F of the [facility] Public Health law. If you continue you may have access to information: Regarding HIV / AIDS; Provided by facilities licensed or operated by the [facility] Office of Mental Health; or Provided by the [facility] Office for People With Developmental Disabilities. If such information is present, then the following [facility] mandated warning applies: This information has been disclosed to you from confidential records which are protected by state law. State law prohibits you from making any further disclosure of this information without the specific written consent of the person to whom it pertains, or as otherwise permitted by law. Any unauthorized further disclosure in violation of state law may result in a fine or retirement sentence or both. A general authorization for the release of medical or other information is NOT sufficient authorization for further disc losure. Allergies and Adverse Reactions Type Description Substance Reaction Status Data Source(s ) Food allergy ONION-IN FOOD ONION-IN FOOD N&V [facility] Propensity to adverse reactions VENLAFAXINE VENLAFAXINE [facility] Drug Allergy Drug Allergy NKDA MEDENT ([facility]) Family History Family Member Name Family Member Gender Family Member Status Date o f Status Description Data Source(s) Unknown Male Problem [facility]ENT ([facility] ) Encounters Encounter Providers Location Date Indications Data Source(s ) Outpatient Attender: Jenny JacksonAttender: JENNY JACKSON 09/09/2021 12:00:00 AM [facility] Outpatient Attender: Ousmane Ward 05/04/2021 12:00:00 AM [facility] Outpatient Attender: Nikole MAXWELL 09:17:18 AM EST - 04/02/2021 10:29:47 AM EST [facility] ([facility]) Outpatient Attender: Jenny Hopkinsender: JENNY JACKSONReferrer: RODGER Jarquin [id number] 03/04/2021 12:00:00 AM EDT - 03/04/2021 02:05:43 PM EDT [facility] Outpatient Attender: Rodrigo Ruffin PA-C 12/14/2020 11:54:35 AM EDT - 12/14/2020 01:23:06 PM EDT [facility] ([facility]) Outpatient Attender: Ousmane Ward [id number] 11/03/2020 12:00:00 AM [facility] Outpatient Attender: Ousmane Grayson er: Ousmane WardConsultant: OMER GOMEZ MD [id number] 10/05/2020 12:00:00 AM EDT - 10/05/2020 12:00:00 AM EDT Disorder of thyroid, unspecified [facility] Disorder of thyroid, unspecified Patient discharged. Outpatient Attender: NESTOR KCReferrer: CHACHA WARD MD [id number] 09/28/2020 12:00:00 AM [facility] Outpatient Attender: Ousmane Ward [id number] 12:00:00 AM EDT - 08/05/2020 03:07:29 PM [facility] Outpatient Admitter: Ousmane WardReferrer: Ousmane Ward 07/31/2020 12:00:00 AM EDT Nontoxic single thyroid nodule [facility] Nontoxic single thyroid nodule Outpatient Attender: Mary Lorenzo MD [id number] 07/16/2020 04 :48:02 PM [facility] Outpatient Attender: Ousmane [id number] 12:00:00 AM EST - 05/19/2020 03:41:00 PM [facility] Outpatient Attender: Shazia LACEYCConsultant: Shazia valdes PA-C 05/12/2020 09:47:00 AM [facility] - 05/12/2020 09:47:00 AM [facility] Outpatient Attender: Shazia LACEYCConsultant: Shazia valdes PA-C 04/14/2020 02:45:00 PM [facility] - 04/14/2020 03:53:00 PM [facility] Patient discharged. Outpatient Attender: hSazia Arnett PA-C 03/16 01:12:00 PM [facility] - 04/06/2020 01:12:00 PM [facility] Medications Medication Brand Name Start Date Product Form Dose Route Admi nistrative Instructions Pharmacy Instructions Status Indications Reaction Description Data Source(s) Ondansetron 4 MG Disintegrating Oral Tab let Ondansetron 4 MG Oral Tablet Disintegrating (ZOFRAN-ODT) Ondansetron 4 MG Oral Tablet Disintegrat ing (ZOFRAN-ODT) 10/05/2020 12:00:00 AM EDT 4 mg Oral activ e Take 1 tablet by mouth every 8 (eight) hours as needed for Nausea for up to 2 doses [facility] Levothyroxine Sodium 0.175 MG Oral Table t Levothyroxine Sodium 175 MCG Oral Tablet (SYNTHROID) Levothyroxine Sodium 175 MCG Oral Tablet (SYNTHROID) 10/05/2020 12:00:00 AM EDT 175 ug Oral active Take 1 tablet by mouth Daily [facility] Calcium Carbonate 500 MG Chewable Tablet Calcium Carbonate Antacid 500 MG Oral Tablet Chewable (Tums) Calcium Carbonate Antacid 500 MG Oral Ta blet Chewable (Tums) 10/05/2020 12:00:00 AM EDT 1000 mg Oral active Chew 2 tablets by Mouth Three times daily [facility] 0.4 ML Enoxaparin sodium 100 MG/ML Prefi lled Syringe Enoxaparin Sodium 40 MG/0.4ML Subcutaneous Solution (LOVENOX) Enoxaparin Sodium 40 MG/0.4ML Subcutaneous Solution (LOVENOX) 10/05/2020 12:00:00 AM EDT 40 mg Subcutaneous active Inject 0.4 mLs into the s kin daily [facility] Ibuprofen 400 MG Oral Tablet Ibuprofen 400 MG Oral Tab let (MOTRIN) Ibuprofen 400 MG Oral Tablet (MOTRIN) 10/05/2020 12:00:00 AM EDT 400 mg Oral active Take 1 tablet by mouth every 6 (six) hours as needed for Pain [facility] Acetaminophen 325 MG Oral Tablet Acetaminophen 325 MG Oral Tablet (Tylenol) Acetaminophen 325 MG Oral Tablet (Tylenol) 10/05/2020 12:00:00 AM EDT 650 mg Oral active Take 2 tablets by mouth every 6 (six) hours as needed for Pain [facility] Docusate Sodium 100 MG Oral Capsule Docu sate Sodium 100 MG Oral Capsule (Colace) Docusate Sodium 100 MG Oral Capsule (Colace) 10/05/2020 12:00:00 AM EDT 100 mg Oral active Take 1 cap nafisa by mouth Two times daily as needed for Constipation [facility] bacitracin zinc 0.5 UNT/MG Topical Ointm ent Bacitracin 500 UNIT/GM External Ointment Bacitracin 500 UNIT/GM External Ointment 10/05/2020 12:00:00 AM EDT active Apply to surgical incisi on three times daily for one week [facility] Acetaminophen 325 MG / Hydrocodone Chelo trate 5 MG Oral Tablet HYDROcodone- Acetaminophen 5-325 MG Oral Tablet (LORTAB) HYDROcodone-Acetaminophen 5-325 MG Oral Tablet (LORTAB) 10/05/2020 12:00:00 AM EDT 1 {tbl} Oral active Take 1 tablet by mouth every 6 (six) hours as needed for Pain for up to 3 days, Max Daily Dose: 4 tablets [facility] dextrose 5 % and sodium chloride 0.45 % infusion [id number] 0 10/03/2020 09:30:00 AM EDT Intravenous completed at 50 mL/hr, Intravenous, Continuous, Starting on 10/03/20 at 0930, For 6 hours
Saline lock with good PO intake.
[facility] Medication administered onsite 0.4 ML Enoxaparin sodium 100 MG/ML Prefi lled Syringe enoxaparin sodium (LOVENOX) injection 40 mg enoxaparin sodium (LOVENOX) injection 40 mg 10/03/2020 09:00:00 AM EDT 40 mg Subcutaneous active 40 mg, Subcutaneous, Every 12 hours Standard (2 times per day), First dose (after last modification) on 10/03/20 at 0900, For 8 doses
Non Patients: body weight < 150 kg, CrCl > 30 mL/min. Guidelines for Lovenox: MUST wait 24 hours before starting Enoxaparin if patient has epidural catheter. D/C Enoxaparin 10-12 hours prior to removing epidural catheter. May restart Enoxaparin 24 hours after epidural catheter has been removed.
[facility] Medication administered onsite Levothyroxine Sodium 0.15 MG Oral Tablet levothyroxine (SYNTHROID) tablet 150 mcg levothyroxine (SYNTHROID) tablet 150 mcg 10/03/2020 06:00:00 AM EDT 150 ug Oral active 150 mcg, O ral, Daily at 0600, First dose on 10/03/20 at 0600, For 30 days [facility] Medication administered onsite Ibuprofen 400 MG Oral Tablet ibuprofen (MOTRIN) tablet 400 mg ibuprofen (MOTRIN) tablet 400 mg 10/03/2020 04:00:00 AM EDT 400 mg Oral acti ve 400 mg, Oral, Every 6 hours, First dose on 10/03/20 at 0400, For 10 days
Take with food if possible. Alternate with tylenol if ordered.
[facility] Medication administered onsite Calcium Carbonate 500 MG Chewable Tablet calcium carbonate (TUMS) chewable tablet 1,000 mg calcium carbonate (TUMS) chewable tablet 1,000 mg 09/13 12:00:00 AM EDT 1000 mg Oral active 1,000 mg, Oral, After Meals, First dose on 10/03/20 at 0000, For 14 days [facility] Medication administered onsite Acetaminophen 32 MG/ML Oral Solution fredrick taminophen (TYLENOL) 160 MG/5ML solution (ADULT) 650 mg acetaminophen (TYLENOL) 160 MG/5ML solution (ADULT) 65 0 mg 10/03/2020 12:00:00 AM EDT 650 mg Oral aborted 650 mg, Oral, Every 6 hours, First dose on 10/03/20 at 0000, For 30 days
Maximum dose of acetaminophen is 3,000 mg from all sources in 24 hours.
[facility] Medication administered onsite ondansetron (ZOFRAN-ODT) disintegrating tablet 4 mg 10/02/2020 08:41:21 PM EDT 4 mg Oral active [Order 1 Start] Name: ondansetron (ZOFRAN-ODT) disintegrating tablet 4 mg Signed Summary: 4 mg, Oral, Every 8 hours PRN, Nausea, Vomiting, Starting on Mon10/02/20 at 2040, For 30 days
Dissolve on tongue.
[Order 1 End] [Order 2 Start] Name: ondansetron (ZOFRAN) injection 4 mg Signed Summary: 4 mg, Intravenous, Every 8 hours PRN, Nausea, Vomiting, Starting on Mon10/02/20 at 2040, For 30 days [Order 2 End] [facility] Medication administered onsite oxyCODONE (ROXICODONE) immediate release tablet 5 mg 10/02/2020 08:41:21 PM EDT 5 mg Oral active [Order 1 Start] Name: oxyCODONE (ROXICODONE) immediate release tablet 5 mg Signed Summary: 5 mg, Oral, Every 4 hours PRN, Moderate Pain (Pain Scale Score 4-6), Starting on Mon10/02/20 at 2040, For 3 days
Oxycodone immediate release is limited to 10 mg per dose. Higher doses ( only) require Pain Service consultation and approval.
[Order 1 End] [Order 2 Start] Name: oxyCODONE (ROXICODONE) immediate release tablet 10 mg Signed Summary: 10 mg, Oral, Every 4 hours PRN, Severe Pain (Pain Scale Score 7-10), Starting on Mon10/02/20 at 2040, For 3 days
Oxycodone immediate release is limited to 10 mg per dose. Higher doses ( only) require Pain Service consultation and approval.
[Order 2 End] [facility] Medication administered onsite Docusate Sodium 100 MG Oral Capsule docusate sodium (C OLACE) capsule 100 mg docusate sodium (COLACE) capsule 100 mg 10/02/2020 08:41:20 PM EDT 100 mg Oral active 100 mg, Oral, 2 Times Daily PRN, Constipation, Starting on Mon10/02/20 at 2040, For 30 days [facility] Medication administered onsite Melatonin 3 MG Oral Tablet melatonin tablet 3 mg melatonin t ablet 3 mg 10/02/2020 08:41:20 PM EDT 3 mg Oral active 3 mg, Oral, Nightly PRN, Sleep, Starting on Mon10/02/20 at 2041, For 30 days [facility] Medication administered onsite HYDROmorphone (DILAUDID) injection 0.5 mg [id number] 10/02/2020 06:33:42 PM EDT 0.5 mg Intravenous aborted 0.5 mg, Intravenous, Every 5 min PRN, Severe Pain (Pain Scale Score 7-10), Starting on Mon10/02/20 at 1833, For 4 doses, Recovery [facility] Medication administered onsite Calcium Chloride 0.0014 MEQ/ML / Potassi um Chloride 0.004 MEQ/ML / Sodium Chloride 0.103 MEQ/ML / Sodium Lactate 0.028 MEQ/ML Injectable Solution lactated ringers infusion lactated ringers infusion 10/02/2020 12:00:00 PM EDT 100 mL/h Intravenous active at 100 m L/hr, Intravenous, Continuous, Starting on Mon10/02/20 at 1200, For 30 days [facility] Medication administered onsite 12 HR Bupropion Hydrochloride 150 MG Ext ended Release Oral Tablet buPROPion HCl ER (SR) 150 MG Oral Tablet Extended Release 12 Hour (WELLBUTRIN SR) buPROPion HCl ER (SR) 150 MG Oral Tablet Extended Release 12 Hour (WELLBUTRIN SR) 05/12/2020 12:00:00 AM EST aborted TAKE 1 TABLET BY MOUTH ONCE DAILY FOR 3 DAYS THEN 1 TABLET TWICE DAILY. [facility] 12 HR Bupropion Hydrochloride 150 MG Extended Release Oral Tablet [Wellbutrin] Wellbutrin SR 05/12/2020 12:00:00 AM EST ORAL active [facility] ([facility]) Loratadine 10 MG Oral Tablet Loratadine 10 MG Oral Tab let (CLARITIN) Loratadine 10 MG Oral Tablet (CLARITIN) 04/20/2020 12:00:00 AM EST 10 mg Oral aborted Take 10 mg by mouth daily [facility] Loratadine 10 MG Oral Tablet [Claritin] Claritin 04/20/2020 12:00:0 0 AM EST ORAL active [facility] ([facility]) 24 HR venlafaxine 37.5 MG Extended Release Oral Capsule [Eff exor] Effexor XR 04/20/2020 12:00:00 AM EST ORAL completed [facility] ([facility]) Cholecalciferol 48299 UNT Oral Tablet Vitamin D3 Ultra Poten cy 04/13/2020 12:00:00 AM EST ORAL active M EDENT ([facility]) 200 ACTUAT Albuterol 0.09 MG/ACTUAT Metered Dose Inhaler [Pr oAir] Proair HFA 12/10/2019 12:00:00 AM EDT RESPIRATORY completed [facility] ([facility]) Fluoxetine 20 MG Oral Capsule [Prozac] Prozac 12/10/2019 12:00:00 AM EDT ORAL completed [facility] ([facility]) Insurance Providers Payer name Policy type / Coverage type Policy ID Covered green party ID Covered green party's relationship to andujar Policy Andujar Plan Information Medicaid P [id number] S [id number] Medicaid P [id number] S [id number] Medicaid Dental O [id number] S [id number] Public Speaker's Benefit Plan O [id number] S [id number] Public Speaker's Benefit Plan O [id number] S [id number] Public Speaker's Benefit Plan O [id number] S [id number] Medicaid P [id number] S [id number] Medicaid P [id number] S [id number] MEDICAID [id number] SP [id number] Medicaid P [id number] S [id number] Medicaid Dental P [id number] S [id number] Medicaid S [id number] S [id number] Managed Care [facility] P [id number] S [id number] Medicaid S [id number] S [id number] Managed Care [place] P [id number] S [id number] Medicaid S [id number] S [id number] [place] Commercial Insurance Co. [id number] Self [id number] [employer]. [id number] Self [id number] [place] I [id number] Self [id number] ORTEGA I [id number] Self [id number] [place] I [id number] Self [id number] MEDICAID M [id number] S [id number] [place] [id number] Self OTHER WORKERS COMPENSATION DOES NOT APPLY THIS VISIT SP DOES NOT APPLY THIS VISIT [facility] MAIL HANDLERS BENEF P [id number] S [id number] [employer] INSURANCE [id number] SP [id number] D Guardian S [id number] S [id number] D GEHA Connection Dental Federal O [id number] S [id number] Guardian Life O [id number] S [id number] Public Speaker's Benefit Plan O [id number] S [id number] MAILHANDLERS BENEFIT PLAN [id number] [facility] [id number] SP [id number] ORTEGA [id number] SP [id number] [place] [facility] -RECUR[place] [place] [id number] 18 [id number] [facility] [place] [id number] 18 [id number] OR[employer]GA CARE [id number] 18 [id number] [facility] [facility] [place] [facility] [place] -PHYSICIAN [place] [id number] 18 [id number] [place]ARE [place] [id number] S [id number] [place] [id number] SP [id number] MEDICAID [id number] SP [id number] [place] Medicaid/CHP/FHP Medigap Part B [id number] Self [id number] [facility] Plan Commercial [id number] Self [id number] Managed Care [place] P [id number] S [id number] Medicaid [place] Medigap Part B [id number] Self [id number] [place] Care [place] Medicaid [id number] Self [id number] SELF PAY ONLY [id number] SP [id number] [facility] [id number] SP [id number] [facility](MCA[facility]) O [id number] S [id number] [facility] [id number] SP [id number] Managed Care - [facility] P [id number] S [id number] D Managed Care [facility] O [id number] S [id number] [place] 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 Diagnosis 05/12/2020 09:47:00 AM [facility] F419 Anxiety disorder, unspecified Anxiety disorder, unspec ified Diagnosis 05/12/2020 09:47:00 AM [facility] F339 Major depressive disorder, recurrent, un specified Major depressive disorder, recurrent, unspecified Diagnosis 05/12/2020 09:47:00 AM [facility] M545 Low back pain Low back pain Diagnosis 04/14/2020 02:45:00 PM [facility] Z0001 Encounter for general adult medical exam ination with abnormal findings Encounter for general adult medical examination with abnormal findings Diagnosis 04/06/2020 01:12:00 PM [facility] [id number] Neoplasm of uncertain behavior of endocr ine gland 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 Problem 04/06/2020 12:00:00 AM EST MED[facility]agan NT ([facility]) Surgeries/Procedures Procedure Description Date Indications Data Source(s) RESPIRATORY PATHOGEN PANEL <td>RESPIRATORY PATHOGEN PANEL</td><td>Routine</td><td>10/03/2020 2:47 PM EDT</td><td></td><td> </td> 10/03/2020 02:47:00 PM [facility] COVID-19 PCR <td>COVID-19 PCR</td><td>Rou denise</td><td>10/03/2020 2:47 PM EDT</td><td></td><td> </td> 10/03/2020 02:47:00 PM [facility] BLOOD COUNT COMPLETE AUTO&AUTO DIFRNTL WBC COUNT <td>C BC AND DIFFERENTIAL</td><td>Routine</td><td>10/03/2020 2:00 PM EDT</td><td></td><td> </td> 10/03/2020 02:00:00 PM [facility] XR CHEST FRONTAL ONLY 73705 <td>XR CHEST FRONTAL ONLY 31995</td><td>Routine</td><td>10/03/2020 9:39 AM EDT</td><td></td><td> </td> 10/03/2020 09:39:38 AM [facility] CREATININE BLOOD <td>CREATININE WITH GFR</td> <td>Routine</td><td>10/03/2020 3:47 AM EDT</td><td></td><td> </td> 10/03/2020 03:47:00 AM [facility] PARATHORMONE <td>PTH, INTACT</td><td>STAT </td><td>10/02/2020 7:08 PM EDT</td><td></td><td> </td> 10/02/2020 07:08:00 PM EDT [facility] TOTAL THYROID LOBECTOMY, UNILAT W/WO ISTHMUSECTOMY <td >TOTAL THYROID LOBECTOMY, UNILAT W/WO ISTHMUSECTOMY</td><td></td><td>10/02/2020 1:52 PM EDT</td><td> THYROID MASS</td><td></td> 10/02/2020 01:52:00 PM EDT - 10/02/2020 07:16:00 PM EDT [facility] GONADOTROPIN CHORIONIC QUANTITATIVE <td>POCT ISTAT BHCG</td><td>Routine</td><td>10/02/2020 12:17 PM EDT</td><td></td><td> </td> [facility] <td>SURGERY CASE REQUEST OUTSIDE FACILITY ONLY</td><td>Routine</td><td>08/05/2020 3:17 PM EDT</td><td> Thyroid mass</td><td></td> 08/05/2020 03:17:16 PM EDT Thyroid mass [facility] Thyroid mass Results ID Date Data Source [id number] 03/05/2021 05:17:33 PM EDT [facility] Name Value Range Interpretation Code Description Data Rima rce(s) Supporting Document(s) Progress Note [facility] OYQYEn0bBlQMUdEh46/XHXzcNSKff5ZaENvmOAr0JLwoJZHxP5UhTAX7tV7gQEM9IKqJTzZmIeZvGPJg lbm [file] CAqorQBdoEnaUDWJEdQdXLvxMEvdHZFYKn0U ID Date Data Source [id number] 03/05/2021 10:13:14 AM [facility] Value Range Interpretation Code Description Data Rima rce(s) Supporting Document(s) Thyroglobulin [Mass/volume] in Serum or Plasma 12.9 ng/mL <35 [facility] (NOTE)Note: High Biotin intake may cause falsely low results.Interpretation: If Thyroglobulin Antibody results ">2.3 IU/mL",Thyroglobulin testing via LC-MS/MS should be ordered, which [facility]Test performed on [employer] 2 using immunoenzymatic immunoassay technology. ID Date Data Source [id number] 03/05/2021 10:13:14 AM [facility] Name Value Range Interpretation Code Description Data Rima rce(s) Supporting Document(s) Thyroglobulin Ab [Units/volume] in Serum or Plasma <2.3 [facility] (NOTE)Note: High Biotin intake may cause falsely low results.Test performed on [employer] Access 2 using immunoenzymaticimmunoassay technology. ID Date Data Source [id number] 03/04/2021 06:19:16 PM EDT [facility] Name Value Range Interpretation Code Description Data Rima rce(s) Supporting Document(s) Thyroxine (T4) free [Mass/volume] in Serum or Plasma 1.52 ng/dL 0.93- 1.70 [facility] ID Date Data Source [id number] 03/04/2021 06:19:16 PM EDT [facility] Name Value Range Interpretation Code Description Data Rima rce(s) Supporting Document(s) Thyrotropin [Units/volume] in Serum or Plasma 0.270-4.200 L [facility] ID Date Data Source [id number] 02/04/2021 10:15:00 PM EDT [facility] Name Value Range Interpretation Code Description Data Rima rce(s) Supporting Document(s) SARS-CoV-2 RNA Resp Ql AMINA+probe NOT DETECTED [facility] This lab was ordered by MAILE calixto and reported by MAILE Crews. ID Date Data Source [id number] 11/03/2020 07:06:19 PM EDT [facility] Name Value Range Interpretation Code Description Data Rima rce(s) Supporting Document(s) TSH,ULTRASENSITIVE @ 0.006 mIU/L (0.360-4.170) L Laboratory [facility] ID Date Data Source [id number] 11/03/2020 02:01:19 PM EDT [facility] Name Value Range Interpretation Code Description Data Rima rce(s) Supporting Document(s) Progress Note [facility] HNTMGf4yUqRSHyMb57/UVUsiLVQju3ChJFeqWCm5UXvwNTGfI5LfSPP8sF6bACG0QMkHYnSvDhPgWhHt [facility] [file] gospel singer+T8OoXU9+dIPF8qWfQ9rZYa+TY26dnWnK9AW5719 [file] ICAgICAgICAgICAgICAgICAgICAgICAgICAgICAgICAgICAgICAgICAgICAgICAgDQogICAgICAgICAg ICAgICAgICAgICAgICAgICAgICAgICAgICAgICAgIC AgICAgICAgICAgICAgICAgICAgICAgICAgICAgICAgICAgICAgICAgICAgICAgICAgICAgICAgICAgDQ ogICAgICAgICAgICAgICAgICAgICAgICAgICAgICAgICAgICAgICAgICAgICAgICAgICAgICAgICAgIC AgICAgICAgICAgICAgICAgICAgICAgICAgICAgICAg ICAgICAgICAgDQogICAgICAgICAgICAgICAgICAgICAgICAgICAgICAgICAgICAgICAgICAgICAgICAg ICAgICAgICAgICAgICAgICAgICAgICAgICAgICAgICAgICAgICAgICAgICAgICAgICAgDQogICAgICAg ICAgICAgICAgICAgICAgICAgICAgICAgICAgICAgIC AgICAgICAgICAgICAgICAgICAgICAgICAgICAgICAgICAgICAgICAgICAgICAgICAgICAgICAgICAgIC AgDQogICAgICAgICAgICAgICAgICAgICAgICAgICAgICAgICAgICAgICAgICAgICAgICAgICAgICAgIC AgICAgICAgICAgICAgICAgICAgICAgICAgICAgICAg ICAgICAgICAgICAgDQogICAgICAgICAgICAgICAgICAgICAgICAgICAgICAgICAgICAgICAgICAgICAg ICAgICAgICAgICAgICAgICAgICAgICAgICAgICAgICAgICAgICAgICAgICAgICAgICAgICAgDQogICAg ICAgICAgICAgICAgICAgICAgICAgICAgICAgICAgIC AgICAgICAgICAgICAgICAgICAgICAgICAgICAgICAgICAgICAgICAgICAgICAgICAgICAgICAgICAgIC AgICAgDQogICAgICAgICAgICAgICAgICAgICAgICAgICAgICAgICAgICAgICAgICAgICAgICAgICAgIC AgICAgICAgICAgICAgICAgICAgICAgICAgICAgICAg ICAgICAgICAgICAgICAgDQogICAgICAgICAgICAgICAgICAgICAgICAgICAgICAgICAgICAgICAgICAg ICAgICAgICAgICAgICAgICAgICAgICAgICAgICAgICAgICAgICAgICAgICAgICAgICAgICAgICAgDQo8 P8kzSQQwPAWpMX4oUSi5Cp7+WAlTSwIeITP3dzSmxX 1YLZ1fj3ClPGguQIEdz5IcKGk3QC8XKPLgMIplOW6GZQyoym8PFFTzZMDwiRMNt8ngWuWiINW3DRSrJi koRG3ZZWWvW2txfaZhHVTbKJPFBU8RKyHvG3JdtT27CHCCNi7+NLhpljEjJbtUKgGrIKGqn2IpLRg3LY 1FLTSfArlnc4PaZtPqZDMVQZitEB2NVUT5IYDdPCId Pp4ESDKqT604wjYrFU7ZSp3QCaOjKI3okl7GTwPbAGUrNpvGFax0JVhcSO2ApAOvCDzCwg0ndcLoofDP m4HwwyVysXDVIGMnNBFsWBGszc27rhvgSASYP4hrUFWqWs1mOb7tAEKqGISxFoBvWDKFLA3ZDMYzOMMn iSVgNTWkYZUGRB0YRMbuENT4XIBeniLcbGRkAIfqRJ 9QYXJlbnQgMjIgMCBSDQo+Ji8FRY2ii0UbXSztTFWoLT8qfv4FBDwZZrJgG5U8rFPbP8B1ZFypRx7CAN KkVPTdXtSuJVFKYMylHE8JOC5scpM9PE3BsOUbMPPdLNWihEJoDRv0Q48soIZvUImiSD6QHTQ+David+Pg 4MRTDyJBVhGTLtYlJjRPBRZtKtI2RmO2LTi0RmF8Yk FT72yFhzzoFjCMogQE7TJN1rSBFfMWLHBA5ThTPgjH9szoVcFrCwGOBVTwCbO34ziKUbPOKlOFOtPLDb Dt2OXSGtC4FyclWqbIxprsGlPPHfIXZTMU9GWQvzxvEonUXitYbfML27pEluCZ5MVo7JEkPuGE5iqh8M eZCbTz1ZDHTiGU8BXOVjBKFqKAJkRDP6ONIlHjMkTT koZBXjLOOeBIT8TCHuVEKiJZ8KAnZlLXLcDQftDjWxVKUxNPQgmn8PCYEwOPBhDRe7SYAkISZiOFDlLO pqJMAjQWXoFMB6NPIxOXOsZG7OCcKuKXBhCBX9RZRvMOIlHEVisg8EUMQgJWKlKpp0HXZoOALfYFLsPL jsWBRbZFJyTbQ1IITkDKSfTE4SDoFeNQKfNUF8KMVt WNXqBCMcam8FMNHrARMaONW0TTRwKTKnXBDvTMzcYWIpYYV4WZJdHVToIOWfBI4DVsUfPUIlCBBmGYVs LLCrMUMagd0WEQXtHVSpWLEeJEIvJPCkPKWsONqwJQAjJFD6Xkz1GWGwRGIgBJ9PMeDlVXAzQWzmJVLg VNXwMNDrih6ISDCzSTIyJaViRUTiLFJiNQNdDVytBV IqBQZ8GWLqVZUeWVAmFL2NQrOjTTQhGZe7JLjcFWSwHKRwkv9NXFJeUFCfRIW1RSExRQSoIHBqMHpyFL JvGJU5JFGoZEQyCUIfOT3FAvRpGWHfDZqyEOulARYrAXXzjw3CUMRxXKTjFLGrFWGhCAYiFNUeCGrmDY IkTYDbGONvELZaWAFmUJ1ZOzFoDQJmCuM8RzSqEGOu KSYbxa9YXJJzFMTvJBT6YkTwHOMuDBIhZJf5fcRamYPiGXe9YT9KC8HnlmDeNtQRUf0Ev006LNT4SZSn Ib2NZ9ujHe5hYTUfVAACBh2IZSc1SUO6AlGuBKLgKYbxGpQoHRJnOIKbQohcA8UzJ9Q6PUr+IDxhZDhi PRWzDLF1GEDyPkErBrE1IRNmRSVoILN7GwwfOq4r XSANCj4+DLuexLKeuPcfSPXHEmLsXwLrNBzeWPFUSv3O ID Date Data Source [id number] 10/05/2020 09:33:11 PM EDT [facility] Name Value Range Interpretation Code Description Data Rima rce(s) Supporting Document(s) Operative Note [facility] YKUPKe3bYcBHCaPi66/JQQucEQBnv1MtNLekJCe3AUilEFWvZ6CgQRW3iZ5hUNW1OSsBLvIaGhSwJYO2 lbm [file] 2FJpS1XrAUSkSrUO6DNRl= ID Date Data Source [id number] 10/05/2020 10:29:42 AM EDT [facility] Name Value Range Interpretation Code Description Data Rima rce(s) Supporting Document(s) Progress Note [facility] MJQGHn7kUdIPGnOc39/YMEfbJWMeb4KpYSmmNPh8VXraHDLiR4VtXIB5cD3bBZG5UIvDHnKfSwNoUKE8 lbm [file] D2QXQ4KRZhEZLyGpMeTQB7DPplZDy+VX4lVWc+Cc1Jl2EtadF4hsVuZMl6SOf4PKcsDHDFIf2Q ID Date Data Source [id number] 10/05/2020 07:09:38 AM EDT [facility] Name Value Range Interpretation Code Description Data Rima rce(s) Supporting Document(s) Progress Note [facility] VQPJSd2xEjJNYtKm52/TPVxhXIJur5ZwUJkyDOa3CGgeRUAgC8YfXWL4cC7oWIT3JFyJNsEbYvHbUNX9 lbm [file] of global marketing/tb45c8o98DtraWmrKNsh9WxMLMElFpxn8jfd+ [file] ICAgICAgICAgICAgICAgICAgICAgICAgICAgICAgICAgICAgICAgICAgICAgICAgICAgICAgICAgICAg YEYmGJJsJHCgYSSbHCIsSFCuPISeCPCfYB7JYQXvXX AgICAgICAgICAgICAgICAgICAgICAgICAgICAgICAgICAgICAgICAgICAgICAgICAgICAgICAgICAgIC TjINEiXEUsNUPeOOSjJLMzTGVvDGYtLFMdENXxCSVvDZDiOX2RBPRmTHZjLWJiIQEyITRuJEMqZIOtXX AgICAgICAgICAgICAgICAgICAgICAgICAgICAgICAg AISwEIZbPEVmIHZfKJEgOURcXBTkARWgICAzANIhUCUlXUMgFRQqFSPtHFBaBC4QWVMxRYNzVGLrWSCq ICAgICAgICAgICAgICAgICAgICAgICAgICAgICAgICAgICAgICAgICAgICAgICAgICAgICAgICAgICAg HMAxYFSaESHrBGMqYOUxPZZmZRJfCOOzSFDlEZ9HCD AgICAgICAgICAgICAgICAgICAgICAgICAgICAgICAgICAgICAgICAgICAgICAgICAgICAgICAgICAgIC HaCMUtGTGjJNWzBYUrQDYsRBFtERJaNIQfZMYoUEQpXKYnCYBeKT3VLNAuODNaGDDySATpTGYwALQzZR AgICAgICAgICAgICAgICAgICAgICAgICAgICAgICAg LBAkDMYtJIPhAIZpFHEwAREfXZDhSRJzVJJfNFCxGCEiVGChQQDfEKFoJGHuNXYoYA6JZPLaJUMmNMFw ICAgICAgICAgICAgICAgICAgICAgICAgICAgICAgICAgICAgICAgICAgICAgICAgICAgICAgICAgICAg ICAgICAgICAgICAgICAgICAgICAgICAgICAgICAgIA 0KICAgICAgICAgICAgICAgICAgICAgICAgICAgICAgICAgICAgICAgICAgICAgICAgICAgICAgICAgIC KmJCZbWRXjHXMcRXCtPJWmDATkKJBfUJUtTUVxJAGgZFDzLTDgNRPkUQ4XKHMiBPGlYMEuHZNjKGOyFN AgICAgICAgICAgICAgICAgICAgICAgICAgICAgICAg WJElDJYsLVIxMJDzLPLoXNIuFYXrORDfELRaDXSfRMQuPCYbLBGyBCGxVUNlXIKhKLPmHN4PEAItXBIt ICAgICAgICAgICAgICAgICAgICAgICAgICAgICAgICAgICAgICAgICAgICAgICAgICAgICAgICAgICAg ICAgICAgICAgICAgICAgICAgICAgICAgICAgICAgIC LnFF7JAP23qWQdd0A9SNWxXI6sojz/Rh9HNYrjxgLvnRRyVQ4VHbZmRR4ief3XRbFySN0deo0AZDzGDx QzL6U3mJUcKNCqRTENZyKbD86pXNxrNk42DSybZWFdFqOsZJp6Fm4KDaRjF8hjYHQnAgR7SRPxSvB8AD NcMmE9DJOlPjNjLKjoFX2Yd4WicNDuQCs+Am7HYD0f a1YqCVtrWHTaUE3ard4LIIeDKtIpN9UfzjI3OGB5XIUyYr2OIGGzDPZiaDWtTSJgAHKULnOiM3GhsX46 IDENCj4+AWcrvtNvNjtFIvL2MSCzf0VmZFj6MZ3LJUTlQOk1gDEnVPTuY9Ban2SgZf78NDKiRfdrIHfh eHNhrGNSSF82piIhgUpjZICvBDGvRW6rWA7aVAAtFL M7CnPfFAIOSS5PTZGaYSDjvHCnCEEsTRLNAK3OOQuxYJD7XYJrgfVstIIqMAglFY4AXNMdeqPqJcZnUQ BSDQo+Vz8CBE2xz3GtPGyfDlHcLT6ggw7NATfIQoCtM6V0dSYkR1W8PHcoZr9WFCOtQUOfRyPqPBCLUG qvUN0DAX7aywM5KH9VtEEpDDAfAUXgsEOtZNc2Q87x dMZqJUfnWA3FUAC+David+Fo4KWTUoKPLfOZUxCiTzZFJDAgDjD9GvN7DAk6MjU6NqXO43rZooxvHlTOrx QA3QRH8dOLOmMTRGMD5WcNTxdW8kfgKnHGVaPYJDZvSmP90ffSCcZOLaKKNbJMLlAb1ZKQLyS5OhcpSc zNzgovPtHOZkQHRMLP1RUDalgdBbeCVllBmqOS91iZ vlIG2VOi1QMlKyRB2xzb6UjDKjWx0OLNVyRa4TQNBmEMLgEAEzREP6YJQdCgXwUMfeUBJuJNPfCTF2SG YhDXKrLC0YAdLgCXZvGNO2ELFbZGIcCPNcmx1YZXWjLLRpNAb5HlPuRVJxDCSpTCktSCFbQALeAHQ3PL QwERRcIO3BCvMwLFWcAGV9JlnbMMNdCDUgmu9QPXVd ZABwBmk9KBUzQZMlZCSyWRxjBNRcCAC0WyGoBYRxFSSzJP4NLiDqLQBjWWY9STHdCGXsGQCosa2NZMRc DCEbBzD4HLVnSUDwHFEkCFynXUIoFSW7USF1ZJOdXEMwRS3HJkBhJBTvEEw0WSTzPBHyEISgoo5UDTAx AZLsFEbnAiGlIDKdCOUoFXvnMQOzHHJ2QQm2XNFiBP CfVB5IKrDhZBUuAWm5SBCwMTIeMDZwkq4YBXPpNZOcDZM9IiOxHUIrWVKiMZvzULCkYJCjReP8DXWqZK JxUY0NFnXdONSsMMIbYKMeXARlGPTkzc7IALQeZMKoYTSaXvVpSRYuRMUrNVxuOVOwCRCuVjC2ZIBxDA WrLK3FVkIvKAOsBBE2TezzQHGpSCWuyw1MJWLdRNZg Lju7VBDmAGCrOGUcUEdxGHUmTKEaKAHqJQSvMIFdTL4BNyTgZCWiGKT9XTNwMWIrBIUfsg6VGIAuDIZx WQy3LdOwFOYqCWMiZKdxMLKcZPL2VIKwJXNoQWLbYT9KHsRpUEIpEGHgBjNaZFRwBTAnfu1ObGShrMdz in6OQUnUKt6HbFbcWXE9FTrzLo6upFOeXvKjJIWQQc 7VywEzQGNlIEPSIHduQSGaGCTvCbgoMvG5MXQfIYF0DBA6RlBnWZHcFFBaVAM1C3DeDqQ3HjBjXTVjYC q5KPJ6TOw5XbecKDL3L0M9OjA4SOUhKdT+HB9tLDn+Ob4Dm9PmajF8qvKtKZsdOREvVO9OYFKYD8VBLj == ID Date Data Source [id number] 10/04/2020 08:59:55 AM EDT [facility] Name Value Range Interpretation Code Description Data Rima rce(s) Supporting Document(s) Progress Note [facility] XVSQSx7oFdQOSeCv37/UGIaqXWVbv3RvEJqmBGw3LGtoYPBvS5DxUHW2oI5rSMG8DTmDSsDbApVmBWUw lbm [file] XSANCj4+QZmfpMUopXnvEFTGXuV2UNI4RBlqYGPYYl5Q ID Date Data Source [id number] 10/03/2020 04:08:51 PM EDT [facility] Name Value Range Interpretation Code Description Data Rima rce(s) Supporting Document(s) Consultation [facility] EULLKn5xHyBQFcYd09/UUCbzQITpx8DjGMkzVMe6ZRyvFMJqN3VoDYR4pQ2kYEI6BQkTDoLyDmWsYVAx lbm [file] AgICAgICAgICAgICAgICAgICAgICAgICAgICAgICAg SCNfZXJkBLCxFCXvPEXpJYAhEOKtZIAeIRKbCVTcPITiJRSgIBWvUMDiAD8AIXUzSJOoRSSqXDWtYMKy ICAgICAgICAgICAgICAgICAgICAgICAgICAgICAgICAgICAgICAgICAgICAgICAgICAgICAgICAgICAg IHWeNTDcPEWkEEHyZWUvURYvJZIaMKVcCL5BPVPgWB AgICAgICAgICAgICAgICAgICAgICAgICAgICAgICAgICAgICAgICAgICAgICAgICAgICAgICAgICAgIC QbTWZnOFVaLIShNMQtRQQvSZWcXONvSFZcNEOrPCAaHLIyLN0HFBWrHBGwDLMoLUVyMVQiTQAwNBCxGK AgICAgICAgICAgICAgICAgICAgICAgICAgICAgICAg JWBqZPBsSYQlHOWkZOKpRIEjYNMpDCYyPMWwYKFqFGYcLGQyBMPjXQGjAHSkTJ1FPZLjXJPwSUWzCEKx ICAgICAgICAgICAgICAgICAgICAgICAgICAgICAgICAgICAgICAgICAgICAgICAgICAgICAgICAgICAg CTKoVTFfRHGuXIUnFZLlQSWxUANiCETrZHEjVN4JMV AgICAgICAgICAgICAgICAgICAgICAgICAgICAgICAgICAgICAgICAgICAgICAgICAgICAgICAgICAgIC WqDPJoDGNsJYSgMIPcRETfHMIkNHAgXIMrYWBdGLPoKAPjTWYaQW9AUAYjFPRlDFTeYITgETRwCROuZP AgICAgICAgICAgICAgICAgICAgICAgICAgICAgICAg NTFlMZHoADQlBLMaBBTwGYYkUQMfWNLxXUEdITNhWOBfCNUgBPKoAKYpUBIsYSVpLI7ENRNdVMMeSINy ICAgICAgICAgICAgICAgICAgICAgICAgICAgICAgICAgICAgICAgICAgICAgICAgICAgICAgICAgICAg ICAgICAgICAgICAgICAgICAgICAgICAgICAgICAgIA 0KICAgICAgICAgICAgICAgICAgICAgICAgICAgICAgICAgICAgICAgICAgICAgICAgICAgICAgICAgIC GsCWPdPOJiJXNxFGQoKEZaFMCgQDMxSLWsHKMlPSHzESVrYMGoRPFsOY8GNIBnVZVbYSEfLOEpVDYtXR AgICAgICAgICAgICAgICAgICAgICAgICAgICAgICAg FKSbZDDpXIMoMRSeHDNgQQIhFTQjSKRkDRXmKHWsMUJjLUIcDFMpFQDjBRPmQZMyLQQpWU3XNM93vZUz h1E2TOFwFZ4krek/Qs1BEWcbqiQkbEByQM1TXjWtGP4wky9SHkSwYJ2rvt7QCGjZRhTvN8H6vMWlLGZu SXJEHmLsP27bEZrmXs99DNolRKGjYnVfYGj1Is4IMq ZfV8khTLAhDpJ6MWXsRvD3NQMeKbY9DWPdXxIfKOFuVSMgGI0NJOUfQ142pyWdLK1EZw0RIrOwRO0ema 3RCnXcDPThMoaTLgu5NBemLP9YrZBshXNsCsBgGLDJQpLjT7ima0GvTbXxDBCNNQolJI2Bk3BoxVXiAY o+Gb1BHG2fl3XeYMhbDmEnKB2fms1FPUoWCmAgO7Hz tXjrLBSbfgE9nSJpFKC7EE8qE0qkHBxjIKFUlPjrAUQYCIBiuNN8WcBlUqIjEeFgRMR9IAKsMI7xSCsi YG1ZVDO3ZWinOQNxASIjF0hRDuTjOKKoQaCdtFgkZH3YFwOxU9LnkaBruQVcVMGmECEUMz3+DQplbmRv LuoECkXnWPQih6GuGGn1SH6BMDRqBZsjIZ6RODByeB 3qBXayCN0OSxKpZRFmBZTTVoGeD85arOInVTj2C5UtNcQuWGIzDokwDZPuQZxsUeQuBUKuHpKuGSrbGE 4+ID4+ZMfqIS3YRKwcakZmEBPoWm4LYCGwULEfLV8gBGRrYYHgK7Z3jDhaVUOHMlKmV7ojpikyFN8pBJ OqD588eFhiizBuMSMlHICqEa5WWGHsNVG4GMHmhMEt KxOpFRRFSNseCF4ArTAnWJI7lS3qRRgmLKFvLMLgI0tUWwGnbZwwUS03xPtmvrGqkOEoZYt+Jb4QOM2e i8UnNXh7dmMiFGhpTMN0QRjeQEUdGNHaZOGtTGC1PMV2WEXZWaZkSKGqSEQcYIkeAUAlHFHeed9NZGUo DWDqXUP8WKBiBGLjOHIhHUnjCVQoEYHdGNUtCXYmUA VwLD9RRuPcSSXoDTCfJGqhYUMeIFJenf3VIAAqQDCbNvH7YaRhZMWvXILpDAdvNQCyNZCdXQZ1RHSwDE NrXT5WDbUgOQLjDUI5KhUfDMEdGYZadm3JJJVqFQKcUmgaQMOvARWpMSPuHStzGFWqPWD0UMK8ULHrMF XkSD5RPhWoBVQkQMXgYbBuRUAmSKFrun0ENUQxBFEc OCG6LxYvGMBwIXUyHJbeQFSxWOYoDBixFDMyBZRgKS1FEhMuWMSdAAX9SGNjMOWqJCSdda8WBLXkXAOz Urc3FCKbYUQlHZJnZOmtNGPrLIQfKNNqYDRrKZDyWR6BHaIwVSIaMPE3QWQcGXQgWEMtrb3KMQWzBFZv HRO0EOUzFOZfJOQyPJxsEQHbEZC0OtvbPOGmZTUgEA 1HZvYaAREiLXNmXOTrJCHkVQXyjv6SBCQbDREiXMAxNPHiSLSgNCEoYZeeRVVfDMX5OgVxIGPpADEyNE 4ALeHbTMPrWcsrFFvzPOPrVCGqib8RBJZhMMOeZkJrZNMzOLMgZYPoZLmwFHBiPHN4XAH8CSLjPWDgBM 0NNuAuIARqHez1PeJlXNJgEQCfse7ZWXKiHXZjIbpe ZSEvMUGmZXVeAOuyBBNeXSK2DQAqBERfVGGpLB4CNxHrIHOnWlkmKBOnMPYuJUTvnn0UPHAwQQEbDZOj SVYdBEFjQCUdVPurVSVeVML5PhEjPDJwGPYpCW7ANnNgWVHrYmVbIGbuKUOtLQBldm5XWSIvGHZxLOY7 WIJeOYGoVMRtDYfqCPMcGPJuVvMtCQXoOOPhHR5XTq JyKVacKVQWGnu0QXguJ6b0MSZrCB5YL1Qsc6JwTaAmXPDMYNmjBO0tpaTuWNJiVu0HJ6yIHocgRsD3Lh WqOeVhAvLbCIH7QGZjYGL6SLthUGWmQwFgNL0iPDAdCULqFfT0AdW9UER6RQX4XQDoOPthBXD0CuLtP3 Y8BwFnII6WYe8RRcN3GND1oNQuZz9KFqG8WosDLsXyOZ4COAc= ID Date Data Source [id number] 10/03/2020 02:47:00 PM EDT [facility] Name Value Range Interpretation Code Description Data Rima rce(s) Supporting Document(s) SARS-CoV-2 RNA 2019 nCoV Real-Time RT-PCR: NOT DETECTED [facility] This lab was ordered by [facility] and reported by [facility]. 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 [facility] Patient has symptoms related to [facility] When did you start to experience these symptoms [Date and time] [Phen X] [facility] Patient was hospitalized because of this condition [facility] patient was admitted to ICU for [facility] Patient resides in a congregate care setting [facility] status [facility] ID Date Data Source [id number] 10/03/2020 04:16:39 PM EDT [facility] Service Cmnt XXX-Imp : NoneRespiratory P CR Panel : PCR ResultsMicroorganism XXX Cult : See Labs Tab for 2019 nCoV RT-PCR resultsHAdV DNA QI AMINA+non-probe : Not DetectedHCoV [id number] Nph QI AMINA+non-probe : Not DetectedHCoV [id number] Nph QI AMINA+non-probe : Not QvywygaoRTdQNG57 RNA Nph QI AMINA+non-probe : Not WbpqknzrCEpJEE45 RNA Upper resp QI AMINA+probe : Not DetectedhMPV RNA Nph QINAA+non-probe : Not DetectedRV+EV RNA Nph QI AMINA+non-probe : Not DetectedFLUAV RNA Nph QI AMINA+ non-probe : Not DetectedFLUBV RNA Nph QI AMINA+non-probe : Not DetectedHPIV1 RNA NphQINAA+non-probe : Not DetectedHPIV2 RNA Nph QINAA+non-probe : Not DetectedHPVI3 RNA Nph AMINA+non-probe : Not DetectedHPIV4 RNA Nph Q AMINA+non-probe : Not DetectedRSV RNA Nph Q AMINA+non-probe : Not DetectedB pert.PT PrmtNph Q AMINA+non-probe : Not DetectedC pneum DNA Nph Q AMINA+non-probe : Not DetectedM pneum DNA Nph Q AMINA+non-probe : Not DetectedB vivgxGE829 DNA Nph AMINA+non-probe : Not Detected Name Value Range Interpretation Code Description Data Rima rce(s) Supporting Document(s) ID Date Data Source [id number] 10/03/2020 02:17:33 PM T [facility] Name Value Range Interpretation Code Description Data Rima rce(s) Supporting Document(s) Leukocytes [#/volume] in Blood by Automated count 10.9 10*3/uL 4-10 H [facility] Erythrocytes [#/volume] in Blood by Automated count 4.17 10*6/uL 4.1- 5.3 [facility] Hemoglobin [Mass/volume] in Blood 12.5 g/dL 11.5-15.5 [facility] Hematocrit [Volume Fraction] of Blood by Automated count 37.3 % 3 6-45 [facility] Erythrocyte mean corpuscular volume [Entitic volume] by Auto mated count 89.5 fL 80-96 [facility] Erythrocyte mean corpuscular hemoglobin [Entitic mass] by Automated count 29.9 pg 27-33 [facility] Erythrocyte mean corpuscular hemoglobin concentration [Mass/volume] by Automated count 33.4 g/dL 32.0-36.0 [facility] distribution width [Ratio] by Automated count 13.0 % 11.5-14.5 [facility] Platelets [#/volume] in Blood by Automated count 273 10*3/uL 150-400 [facility] Differential cell count method - Blood [facility] Neutrophils/100 leukocytes in Blood by Automated count 77 % [facility] Lymphocytes/100 leukocytes in Blood by Automated count 17 % [facility] Monocytes/100 leukocytes in Blood by Automated count 6 % [facility] Eosinophils/100 leukocytes in Blood by Automated count 0 % [facility] Basophils/100 leukocytes in Blood by Automated count 0 % [facility] Neutrophils [#/volume] in Blood by Automated count 8.39 10*3/uL 1.8-7 .0 H [facility] Lymphocytes [#/volume] in Blood by Automated count 1.80 10*3/uL 1.2-4 .0 [facility] Monocytes [#/volume] in Blood by Automated count 0.68 10*3/uL 0-0.8 [facility] Eosinophils [#/volume] in Blood by Automated count 0.01 10*3/uL 0-0.5 [facility] Basophils [#/volume] in Blood by Automated count 0.04 10*3/uL 0-0.2 [facility] Nucleated erythrocytes/100 leukocytes [Ratio] in Blood by Automated count 0 /100{WBCs} 0-0 [facility] ID Date Data Source [id number] 10/03/2020 01:37:17 PM [facility] Name Value Range Interpretation Code Description Data Rima rce(s) Supporting Document(s) Progress Note [facility] FJVBOm3yReGQYxKh12/FRLaxMGVnw9UeWPuxFGs5HCaeXIZaV1FpCEA0rB8qCNI2QRnFKjEpMaDzKIGy m [file] WKQ6+/wN5Sbr/financial aid counselor+R5NJDuAKM1RsV2J4b9vX2MZdR [file] ICAgICAgICAgICAgICAgICAgICAgICAgICAgICAgICAgICAgICAgICAgICAgICAgICAgICAgICAgICAg WHWpGLXxDQRwBFRdFNWyWEPaWPGjGIWyJC4EBYZhDHKlCTLeFDIeLVChNOKpUDDaKKVmNMLdVEXqYJAt ICAgICAgICAgICAgICAgICAgICAgICAgICAgICAgIC QdLSZpTAWaSOZlINFfPXBdNOVbKYCqPRAbLZDmCXPmOHIhVU6VPWGuQAMkWHPtSTSxTZLlSZSwHEDgUE AgICAgICAgICAgICAgICAgICAgICAgICAgICAgICAgICAgICAgICAgICAgICAgICAgICAgICAgICAgIC StQNGtEAVuYXEwEMIvPHSrQD8QJHXvCGTuDLGiAHOi ICAgICAgICAgICAgICAgICAgICAgICAgICAgICAgICAgICAgICAgICAgICAgICAgICAgICAgICAgICAg BTZvTWAzTETfVMZaXYMwDFNsDEKiINSzLPFdJX7NEHUoDCLvYACrJGTbCGYvCAYyTYXpWOJuSQBcZOUs ICAgICAgICAgICAgICAgICAgICAgICAgICAgICAgIC SbZKSdWPUbVAZlYYUyIJQzWLYrDDFjDYZvHGDlVIRpGJOlJBNuPJ1MYQYqOSEcKGCoZZZgBCFdRAEuMW AgICAgICAgICAgICAgICAgICAgICAgICAgICAgICAgICAgICAgICAgICAgICAgICAgICAgICAgICAgIC ZzIWQkISNbKAHkGBXcAMGuMULuVX3IGEPpXAYhRZIj ICAgICAgICAgICAgICAgICAgICAgICAgICAgICAgICAgICAgICAgICAgICAgICAgICAgICAgICAgICAg GHCyLAAiAQToFFHlRJElHSDnUEUdVZXyREKnUPOcMJ7RFAVfVRAdRTByRXSrPSGgZZAzGGSkVHYlVUBi ICAgICAgICAgICAgICAgICAgICAgICAgICAgICAgIC VsCFAhNAOsYYDoPJAvULCgKGPuBMRuUEKrVSCcCJPrGHRqGCOyEHWrAP0VKPHpDNIlHTFaLFRcLLXgAR AgICAgICAgICAgICAgICAgICAgICAgICAgICAgICAgICAgICAgICAgICAgICAgICAgICAgICAgICAgIC LzWERxAYMwZLAzKCMmDGKaERDaPKAwIX4ZJNTnZOKf ICAgICAgICAgICAgICAgICAgICAgICAgICAgICAgICAgICAgICAgICAgICAgICAgICAgICAgICAgICAg PUPiJKBjRIAqZQFfBBDuLADxJIYnZCMuCYExKOGaTFJyAY1RIZ27sHRtd3J6IKBvVO5axsi/Ht1EFGsz vwBsaMNlNM1GZlWwHJ1cal4IOtLhOW6ztx7LRLhPCa XuD8U3tOYcMVRmSXRXTcKeT81bUJvfJr26LSkbAIKoLzAuATr8Cq6YTdMgJ1teHTEyAcC2VOGrIaY0MQ GqKoVlWRehAM0Rk2KvyRExSAk+Zr1XTX9tc2UvWUnoBVOxSN5zyk7MWZhLDhSpS6PlslU6LYN0JMZdBo 5HAKGmDCCrvDGsTjQwEDQRYkWsN1HvjN26ARGBQo2+ QMhisbJtCevPBwT6GIXns8IhIQd8ZV0SVSVfQRx3aIXoAWNeT5Iim3XcMs50JFOcJrbvD6owTF63IUSE dOUjpw8vekocLS3YPeThLCOhJK7nPw2uUDNmZPF5KyQ4MCUJLD4FMXGlDXLtyCGoNBEvFKZYGY3FZVqr VAX7OCRpoxHveIXpKLkcAH6BSUFeavXhRhOvDMIADY o+Jl4MVX2rs0AiCUztPiKdLX2yhi8GKQuDJdCcA9L7mNHmD9J6DYgqXk2ROSJxOXZjXdJfUYLIWDmlTF 4FUN3nssT0IW3NgNBsAYTePFQsgEGfYNr7F13myAGkVFtfEA2FFRA+David+Bf4QPVNdEIZkKHGuQgLvJB UDBaVgH5JxS6ZEj8MyL8FlER00sAidjeQkVNefCS0G RQ4vUVDcSELRXF7AnKJefT5znwNnOHItYHPDOrZqK27tiNGhTFYvTAP1KLMqHm0LLMNmQ6DzkgDsoUeb xeAiHPXyOCQLNG9CMBgasnHlePDlbSpfPF82dTuzTK1XMo0JEgEpUB9pef1QjXSqSo6COMEwWH7BCEWy JWYnNHUoEJE3UQEuHoQyJUorJIPsVXJvCEG2EUImZB DdKH4WMwUcXINgOMCfGIPfWHIrQGKvkm7YUNEmVTJuFAf0MXYyPPAsDXVdWAzgDGRzHMFaXLG6GUSaVA DnGR1VCyZgJAAgZCSvVuGwAUJgBBKufm1LTYNtFYWlPwW6GLPxNYNbBKNyWAbiVXOlXDP9EpZiWCQiFV ByHV2NEnBcLVCnKXE4KIJjDMOtLBCsix0VEXJcAUVq ElJdBhDfCNGsMFTiTXqeUESmOPG8SEw7PUVxKYAvYU7QKiLpGBJhYKw8ZCZaWYRmMQSnvy2WPCDaFGWp ZGtdHRSxGELjCJEdAEceXZCxPSI3LLToKFGkPWEgPQ6SJjWgMHDzJXmqUekuJVAwTUKydo1HRSDpLWUz HFS9GKQfQFYtHREjHZsyYKAcVTGtHbq4HBXcXIOwBZ 3CFcBkGJNqBLX4UzflCAPsDMWdms7SYSTpJBEdVEPhJVIqZCAcOWSiEPliKREhOJWrIzK7FLBxVYSmCF 7WJwMnNELdUMD0WrLaFKXoREDsag7XVGEsDWYiBau0UeVsTDPnBMOoORrkNFGyIDEbHRk7TQBsXCHxUY 2LIoPnBOTgLCAnXQTlNCQsTHOohj5RKLBtYZJcDsX9 NLAwZTHbILZtHQgbIWObINL1GKv9MQYfEFHbWQ3MFdYrVTDhACBbEjFrTZIiAEMdyz3ODNPsUPChOLFt JXXvDUXzOYZyEPf3usWrhJRjBFo7KF3XD1UjcuGgMuuIRw7Tf435RKM8PKDuKc9GF7tiMv2sUUSgLZOJ Cl5JQYw2FbBtSCTjU0F9YCK9AXLrZNMdWRB0O6C4OE i2ObJfKDO+GTieRUO5E8H0QhI6Uhb2S7Q7TxY2KCC6Vmh9SQP8Y2H7QA6iGAAODk0+DQpzdGFydHhyZW BQAhZ1EPJ6LUrqTGYFEk2V ID Date Data Source [id number] 10/03/2020 09:47:35 AM EDT [facility] XR CHEST FRONTAL ONLY [id number] RESULTI nterpreted by:LANDEN RaderROCEDURE INFORMATION: Exam: XR Chest Exam date and time: 10/03/2020 9:25 AM Age: 25 years old Clinical indication: Pain; Other: Pleuritic; Additional info: Rule out pneumothorax, pneumonia TECHNIQUE: Imaging protocol: XR of the chest. Views: 1 view. COMPARISON: CR Chest, 2 view PA, Lat 07/04/2018 7:21 PM FINDINGS: Lungs: Left basilar patchy airspace opacities of infiltrates and/or atelectasis, not present on the prior exam July 04, 2018; pattern is consistent with pneumonia. Heart size is accentuated by portable technique and lesser lung volumes. Pulmonary vasculature is unremarkable. Pleural spaces: No pneumothorax. Heart/Mediastinum: Unremarkable. No cardiomegaly. Bones/joints: Unremarkable. IMPRESSION: Left basilar patchy airspace opacities of infiltrates and/or atelectasis, not present on the prior exam July 04, 2018; pattern is consistent with pneumonia. THIS DOCUMENT HAS BEEN ELECTRONICALLY SIGNED BY NIKKI LYNN MDThis document has been electronically signed by Nikki Lynn MD on 10/03/2020 9:47 AM Name Value Range Interpretation Code Description Data Rima rce(s) Supporting Document(s) ID Date Data Source [id number] 10/03/2020 04:40:17 AM EDT [facility] Name Value Range Interpretation Code Description Data Rima rce(s) Supporting Document(s) Creatinine [Mass/volume] in Serum or Plasma 0.60 mg/dL 0.50-0.90 [facility] Glomerular filtration rate/1.73 sq M pre dicted among non-blacks [Volume Rate/Area] in Serum or Plasma by Creatinine-based formula (MDRD) >6 0 [facility] Glomerular filtration rate/1.73 sq M pre dicted among blacks [Volume Rate/Area] in Serum or Plasma by Creatinine-based formula (MDRD) >60 [facility] ID Date Data Source [id number] 10/02/2020 08:19:50 PM EDT [facility] Name Value Range Interpretation Code Description Data Rima rce(s) Supporting Document(s) Progress Note [facility] WBLRNg9pLhRKAzBg81/DUVxiVXUtk5KeZWgcOMe3DZndWVWxF0KlCDN6yL2sNDE5GAgLHfHvIfEaFSJz lbm [file] RqHWDwUlr7JLaoPvttUeXoGlIiCA4EDp4NGiP6QAX0nPRnIx6ECZM1PiJYYnSlHK6YAZw= ID Date Data Source [id number] 10/02/2020 09:06:56 PM [facility] Name Value Range Interpretation Code Description Data Rima rce(s) Supporting Document(s) Parathyrin.intact [Mass/volume] in Serum or Plasma 35 pg/mL 15-65 [facility] ID Date Data Source 10/13/2020 01:04:00 PM EDT [facility] Surgical Pathology ReportName: Shad VARGASMRN: [id number] Number: [id number] Date: 10/02/2020 17:19Received Date: 10/05/2020 11:51Physician(s): OUSMANE WARD,OUSMANE AREVALO,SCARLETTpecimen(s) ReceivedA: Total thyroidectomyB: Left central compartment lymph nodeClinical HistoryThyroid mass.DiagnosisA) THYROID, TOTAL THYROIDECTOMY: MULTIFOCAL PAPILLARY THYROID CARCINOMA.MARGINS NEGATIVE (See microscopic description and synoptic report). B) LYMPH NODE (1), LEFT CENTRAL COMPARTMENT, EXCISION: METASTATICPAPILLARY THYROID CARCINOMA. Synoptic Report:Specimen Procedure: Total thyroi dectomyTumor Tumor Focality: Multifocal Tumor Characteristics Tumor Site: Right lobe; Left lobe Histologic Type: Papillary carcinoma variant - Oncocytic Tumor Size: 3.9 Centimeters (cm) Extrathyroidal Extension: Not identified Angioinvasion (vascular invasion): Not identified Lymphatic Invasion: Not identified Perineural Invasion: Not identified Margins: Uninvolved by carcinomaLymph Nodes Number of Lymph Nodes Involved: 1 Maria C Levels Involved: Level Size of Largest Metastatic Deposit (Centimeters): 1.0 cm Extranodal Extension (YOVANY): Not identified Number of Lymph Nodes Examined: 1 Maria C Levels Examined: Level VIPathologic Stage Classification (pTNM, AJCC 8th Edition) TNM Descriptors: m (multiple primary tumors) Primary Tumor (pT): pT2 Regional Lymph Nodes (pN): dK8mEtqrrhehpy Findings Additional Findings: Adenomatoid nodule(s) or nodular folliculardisease CAP eCC June 2019 Annual Release Robert Duvall M.D.;Resident PathologistElectronically Signed By Sumeet Torres MD, Attending Pathologist :04:20Processed at [facility] Pathology Laboratory at [facility], [address] [place] [address]. [facility]. The attending pathologist named above attests that he/she haspersonally reviewed the relevant preparation(s) for the specimen,performed microscopic examination when indicated, and rendered the finaldiagnosis. Gross DescriptionThe specimen is received in two parts. Part A is received in formalin and labeled with the patient's name,"Laureen Vargas" and "total thyroidectomy". It consists of a 41.6 gram,6.0 x 5.0 x 3.1 cm unoriented total thyroidectomy specimen which displaysa 5.1 x 3.3 x 2.5 cm attached right lobe, a 1.7 x 1.5 x 0.8 cm attachedisthmus, and a 3.7 x 2.7 x 2.4 cm attached left lobe. The exterior capsuleis red-purple, shaggy, grossly intact, and is inked black. Sectioningreveals a 3.9 x 3.3 x 2.4 cm encapsulated, brown-jasmine, rubbery nodule inthe mid and upper right pole which is arbitrarily designated nodule A.Nodule A comes to within 0.1 cm of the exterior capsule. Also identifiedis a 1.0 x 1.0 x 0.9 cm ill-defined, welch-jasmine, firm nodule in the rightlower pole which is arbitrarily designated nodule B. Nodule B comes towithin 0.1 cm of the exterior capsule. Also identified is a 2.0 x 1.5 x1.4 cm well-circumscribed, welch-jasmine, rubbery nodule in the left lower andmid pole which comes to within 0.1 cm of the exterior capsule, and isarbitrarily designated nodule C. Also identified is a 1.2 x 1.0 x 0.9 cmwell circumscribed, ovoid, welch- brown, rubbery nodule which is arbitrarilydesignated as nodule D. Nodule D is located in the left upper pole, andcomes to within 0.1 cm of the exterior capsule. The remaining thyroidparenchyma is red-brown, rubbery, and homogeneous. Also identified is a0.9 x 0.7 x 0.6 cm well-circumscribed, ovoid, welch-jasmine, rubbery nodule inthe left upper pole which is arbitrarily designated as nodule E. Nodule Ecomes to within 0.1 cm of the exterior capsule. Small Machine Bindery Operator sectionsto include packaging sales representative nodules are submitted in seven cassettes asfollows: A1 - right upper pole/nodule AA2 - right mid pole/nodule AA3 - right lower pole/nodules A and BA4 - isthmusA5 - left lower pole/nodule CA6 - left mid pole/nodules C and DA7 - left upper pole/nodules D and EPart B is received in formalin and labeled with the patient's name,"Laureen Vargas" and "left central compartment lymph node". It consistsof a 1.0 x 0.8 x 0.7 cm ovoid, welch-jasmine rubbery lymph node which displaystan-jasmine and what dusky, focally cystic cut surfaces. Entirely s ubmittedin one cassette designated B.CTC\\Microscopic DescriptionSections show two foci of papillary thyroid carcinoma. The larger one(3.9 cm) is identified in the right upper pole. This focus showspapillary thyroid carcinoma, oncocytic variant. The abundance of theoncocytic cytoplasm raised the possibility of the tall cell variant ofpapillary thyroid carcinoma. However, the cell height is not 3 times it'swidth, ruling out this aggressive subtype. The second focus of papillarythyroid carcinoma is identified in the left upper pole where it measures0.9 cm. This focus is of the classical variant subtype. All margins arenegative. Also identified is an attached fragment of benign parathyroidtissue. This report may include one or more immunohistochemical stain results thatuse analyte specific reagents. All positive and negative controls havebeen reviewed by the attending pathologist and are satisfactory. The testswere developed and their performance characteristics determined by [facility] Pathology department. They have not been cleared or approved by the USFood and Drug Administration. The FDA has determined that such clearanceor approval is not necessary. Name Value Range Interpretation Code Description Data Rima e(s) Supporting Document(s) ID Date Data Source [id number] 10/02/2020 01:46:59 PM [facility] Name Value Range Interpretation Code Description Data Rima rce(s) Supporting Document(s) History and Physical [facility] DNMYSm9uJuGQReVp93/NVOosPCCyy1BgCKqcKKy6ILmjDDOvA1OlICT3jC6aIXA8JJdTMgBwNnGaEYGy lbm [file] AgICAgICAgICAgICAgICAgICAgICAgICAgICAgICAgICAgICAgICAgICAgICAgICAgICAgICAgICAgIC AgICAgICAgICAgICAgICAgICAgICAgICAgICAgICAgICAgICANCiAgICAgICAgICAgICAgICAgICAgIC AgICAgICAgICAgICAgICAgICAgICAgICAgICAgICAg ICAgICAgICAgICAgICAgICAgICAgICAgICAgICAgICAgICAgICAgICAgICAgICANCiAgICAgICAgICAg ICAgICAgICAgICAgICAgICAgICAgICAgICAgICAgICAgICAgICAgICAgICAgICAgICAgICAgICAgICAg ICAgICAgICAgICAgICAgICAgICAgICAgICAgICANCi AgICAgICAgICAgICAgICAgICAgICAgICAgICAgICAgICAgICAgICAgICAgICAgICAgICAgICAgICAgIC AgICAgICAgICAgICAgICAgICAgICAgICAgICAgICAgICAgICAgICANCiAgICAgICAgICAgICAgICAgIC AgICAgICAgICAgICAgICAgICAgICAgICAgICAgICAg ICAgICAgICAgICAgICAgICAgICAgICAgICAgICAgICAgICAgICAgICAgICAgICAgICANCiAgICAgICAg ICAgICAgICAgICAgICAgICAgICAgICAgICAgICAgICAgICAgICAgICAgICAgICAgICAgICAgICAgICAg ICAgICAgICAgICAgICAgICAgICAgICAgICAgICAgIC ANCiAgICAgICAgICAgICAgICAgICAgICAgICAgICAgICAgICAgICAgICAgICAgICAgICAgICAgICAgIC AgICAgICAgICAgICAgICAgICAgICAgICAgICAgICAgICAgICAgICAgICANCiAgICAgICAgICAgICAgIC AgICAgICAgICAgICAgICAgICAgICAgICAgICAgICAg ICAgICAgICAgICAgICAgICAgICAgICAgICAgICAgICAgICAgICAgICAgICAgICAgICAgICANCiAgICAg ICAgICAgICAgICAgICAgICAgICAgICAgICAgICAgICAgICAgICAgICAgICAgICAgICAgICAgICAgICAg ICAgICAgICAgICAgICAgICAgICAgICAgICAgICAgIC AgICANCiAgICAgICAgICAgICAgICAgICAgICAgICAgICAgICAgICAgICAgICAgICAgICAgICAgICAgIC AgICAgICAgICAgICAgICAgICAgICAgICAgICAgICAgICAgICAgICAgICAgICANCjw/bUNuO5aehKIoxe C6T9wnBq9UPb7GYL4ls9ScPGMjMXxurkYhCbxLMrTy MXYqZsvRQdn0MGaoVE2VvWYmA0RhO2NfZKirQX0LNQPjEFItbTMbQILhTNNeAvC4KUYsVAvjCK2PrBEq NMkhMNCaWXBkXdYyNKSySY5LNZAkN723rnSaOs3OSg1QKkXySM0omd7MFfejMBAmXtbRYta1BOkeXR7M fCAmrNPrJUTxTAQLMjWsT5vhl2HwIhhnBTXJOGqbDT 3Ge7AxiIStVGl+Bk0PIF7en6AeKQkyWORoOQ9jxp7AFXoDWoHwC8BerNwxBNnoIXZorVLOlKQgBYYmWU kcEPSzfWl3LKVCDIUhhQE2ErZlRxWeDjPkWXC6BVasIV3nYPsqXA8PIOC2OFmxKTSoEZMtW9kXAmEeGI MdPzAnyUryCW6BXtSbC2EulmNqrVYiMkVpJPVHDv6+ WZglxgPxTdkTMoT2GUAsc1LaHOz7BN7FBMCqDEfoKD8FQWVcrX7oBQwsQO6IEvPzATBbNQVVCdSxA46m kCJyBKc6U6DcJwTlTIAsSempXZUmPTqnSpAwBRDqIoUwTTcyXA4+ID4+ZBdnDI1IZPrpocVgDWQuUk4M VZCcDHAwLF8rVVGbIJRzJ3H9qYbhKXWQCsKyG6xjeg xcPG0fJJFxT789eIyocaIaPGB2WIAiTl6AYKGtSFA0AGEihQLfNeFvIXUCTVnnOD8RjMCdURL5gG6tSJ fpYMPaVUHpQ7jOLoFueNctFI02xMwfbgCkgUIxMCf+Lm0ZES4lq0LvMJi6inZyDMojMGElARbfDRJrRC LaJIKwENQ4GUD7WOORAeOeUBDxUGQaHDfuWFSjSNTs uj9IMCCsCBBiJdL9SUXwESHlZEKvIYmkFFQtQAP6HZPnKNXdTPIrDF4YByRcWLJcLUQzLIvwJOSoGZUu wl3VXSLiZHIwZqtdPkPyVPObXHEkSZqfVPIxCLAySDN8PXDcYIOuYG0ZLfKuYSNoLDD4KRZjYSUqCLBt zz9IZWCzUMGlVvR4GBWrYENmQTVwJAsqFWEvTAE2YH N8RTOfHSOaBE5DUrJoCETjLOdjMNYhHUShZCCpgn9DULGcOTWxRvP3AQDwGUChCLLcVHkwQRVvMZB6Ha AdBWNvFMNnXW9JSkYbPOYqURm6GAYqTJJjSKOuth7CCFTiRGKoMMzyYYEmFAStQVJkRImqHSSbBUS9At akOEPcWOQlOT6DVzDnDAFhGZy5DEcvRJQhNQMave3Y UTJeIGOxSOI9PNTnKEEfYACsQThbQKBuKYQmTLE9XFMcGEFmVX2FFgQeBZOnGwU3CiXuZUAxLADksp3G TBGyUAArIWh1WaItAVJzQQJuABupBWQuBWSzWdVgHTUgSZXgGD5IGvCvBHJwYxEuWvprFFBvMLTsjp7X ANTgJOEyJiOyZTPfHDElPVQzRAjoHUVzJPBhJZe9FN KoQEZnPM6KRpEwXBEzVqU1ZmalTOKpLWWeix5WBGQlCZJaLJDuAEOgAHMyUIQbQCixJPUlZFW6MFO3PV XoVEApOB6PPpKkTZSmBoY0TyOmZUByGVLujl0YWAZlMJMhJYt3POXcCUMgYTAnKWk3qzOxzVHuXMd4GF 3RH0PoxhNeKjZKFq3Cw059TMX7PXHgGm1WB7tqDz8i KEXzCELWQz1XIBx9ZTA7OCUgMsIcKGX0ZpUtX0TgLHA2PnO7FHQvWMjyVpQ+ESs2MUKvIxX8ZNCbJIzp LwXzAIKpJPbsRLQbPSL4POI4YS3zWQXTOo5+PCsavWIreXbjKZZCPvJ5KDO5GOwnAQKEZw2W ID Date Data Source [id number] 10/02/2020 12:32:51 PM EDT [facility] Name Value Range Interpretation Code Description Data Rima rce(s) Supporting Document(s) Choriogonadotropin.beta subunit free [Units/volume] in Serum or Plasm a <5 [facility] (NOTE)Levels between 5 and 25 [IU]/L may indicate earlypregnancy and should be repeated after 48 hours. ID Date Data Source [id number] 09/28/2020 09:57:01 AM EDT [facility] Name Value Range Interpretation Code Description Data Rima rce(s) Supporting Document(s) Progress Note [facility] MHAPKb4qPyVUReVi67/EDOrfQAHsu2ByFIzpVKf5XJwpAZMmY2GaDLO8rE0wWYK8FMmTKhYzJtKqDHP1 lbm [file] c/AxiLqcP63Mog1h41YWfx+t/DYdQ1yClWgUsZ/ uakqJ0q+46jZ7G1kK2UCxmuYkNm6+jaKTlWmuNeYGyyzigjqIyZsev7oOoafpYlZiXXGAcbtvtfRDi2D yF58fb8LQzLGpX3jdwU+RLnHANXwaFkms4mKLlGqKmat2M5igqc9mHjda3PR43mckbNOXOnae6nKnvBq J1ioph40/+7Ou2Ko0antpwhKwep3t4Qu2UAYdvFpLn g8dZWUTyoBg9Nqpif2g+KSkz1wHOX4QKWGfXCYDpckOpBmihJzIUWZiwr23cEJ82P90B4eLrImebUIvJ uXIYvlfKqfJaea+6R45Tv0qgLG/ESZnK9kE2Fd/kFa3wBd+4PFktxzCwc7/WPtG+107ja+kKzv1gwCdr WXp/faJ+ek5KN0MkFsHAgifgsqBpyPZbEDD+3XOpp4 9huSdX5mpVOI8ljlq2kaabt+xDnzRuM0hj4f8diuER1E852AcniAyJ/zjZmvKhGi4JmrUC3O3cs6f04v u8BY6yaI7hqkfl6+Co2zuMIirdwnFivqq654nPvtYJUW10JgU6gtVupgD0emccoyOrcUnYacKIVnepUc 9DljR1To7zEkfC/jv1x6rGFxDx+rC9VX5jF8hjm5bN xHydtr4ixGw5HMfipc47o7IoPjZllBxRumimG22yQD1XD+flkGcDsWl0X23YbxuK/psL5AcH4dMZ3YeR 6QxDbtyOLHN9M21jhaZ2HgeSaPEzB5E80pMZhNI6sfzRFubt93i1h73sK5j6qas5V+uYsdk7KruHG6MN ujDwAm1rz0577MvnZY3WLUDcJMpU+yQli1p8YR4D3C ZolQnQadswundAD/QIyeEwMT6mIKtDRNrGTkvbjd6J9IRoOShCniS0CCjL3oMDukGhZ9bypWIDr6tGjU ymSn9fBfbJ98CZ4RRe9n8ZjMT0RngNNvEx9azuJ9gUWB+BvZocYBHBFj6aiChMerQcz22f8XVRMiCf2V 5cal9KH1Esn6UeuP+53XvI3s6IMnQ5PyLAyCBd+TeU PTKtUB4hk4zgr1Xej/v8sLDIY1p+AV9HuqskVRlLGz7XDiHgeD1F0c679j72ZL704zmQz8lvSm3TMAWD W9dD/poKy6ZA7twS+lMx5He0/hwC2NZ9LH4mYEZ5Wzppg4SwTxhkMRSU72VUsF4fMeKQrotsjS+71lpr Ow0NL1vDVepy4qSb+nXQ/JjFstXTj+kuUATdM7Vdjj eI2Hi0iziijG6NTtSIqQWRe2J9iMokLlUEs4nyyCQneu+2I6daJLeAfEFbhFD8MSLVQQL7USricXevVx gHeAwwFR+QxMXzW1PNZ2IXPAdZaJ7SqN9n+b4Wboa4Izv7M7vpHBvh21FiUJDvVqWh+ZBfqu29Y+dL7O AIlCAb7q3xdMq9TJqhL+Kx6etsa42NkN3Z8+Ip [file] ICAgICAgICAgICAgICAgICAgICAgICAgICAgICAgICAgICAgICAgICAgICAgICAgICAgICAgICAgICAg JMAkTOIlDGDyHOPePPTyXZAiMFIvZXBuWWGvHG8ZSF AgICAgICAgICAgICAgICAgICAgICAgICAgICAgICAgICAgICAgICAgICAgICAgICAgICAgICAgICAgIC OhEWLpHPTeEXRqCDXfLBArSNBfEVSxIQIdEBQmMVKpUSYdCDPtJQ1OUUMqGTOiOTEoBOVcFRYlVJZyKI AgICAgICAgICAgICAgICAgICAgICAgICAgICAgICAg ISOeGDFzBIPhKWDuMHBnPRNlEQDyTUWgBRYvYWLzQSRlHUYcTQTmGDPyBWDhQZSaSP6GDTRvOFUrRSBg ICAgICAgICAgICAgICAgICAgICAgICAgICAgICAgICAgICAgICAgICAgICAgICAgICAgICAgICAgICAg ICAgICAgICAgICAgICAgICAgICAgICAgICAgICAgIA 0KICAgICAgICAgICAgICAgICAgICAgICAgICAgICAgICAgICAgICAgICAgICAgICAgICAgICAgICAgIC CoMGBtUNOuEYLuDBGsJIFeBSLsPAQjNBJcLIDtYUYxNCAgCKQaWTJoYH2SDAVoHBLbLZTiFKRnWQJoRB AgICAgICAgICAgICAgICAgICAgICAgICAgICAgICAg KUGuFIGkYJNmKYLcYOBsDIYbUTGkFJVpSEUxLCUfYARyGQBqAPVlWVUfXDVvFIDqISCxXB3ETAMvOIKz ICAgICAgICAgICAgICAgICAgICAgICAgICAgICAgICAgICAgICAgICAgICAgICAgICAgICAgICAgICAg ICAgICAgICAgICAgICAgICAgICAgICAgICAgICAgIC DnYS8GZKWqDZOzXGSgQONoBUVmGIWoYHQgSTGmCAUnITGjZIOkQXJdQMZjJITiQWXfZLOsUNDeHTZhSU OoFKDdDSOnAPEaBBZnPIVfKSVqFVFwTOWqAJMpPRPsZOYbCEGyQJFtFLFrTQ2BUDRdBKNaCQDzJHHgXM AgICAgICAgICAgICAgICAgICAgICAgICAgICAgICAg NLVkHGJwQCJhQJYfDEGuGFCmTNOnMDToRWRqDDIpKPJtOIDnAOXqCWSuVYImBVLzRZLbXPTjJA4CXTQs ICAgICAgICAgICAgICAgICAgICAgICAgICAgICAgICAgICAgICAgICAgICAgICAgICAgICAgICAgICAg ICAgICAgICAgICAgICAgICAgICAgICAgICAgICAgIC SaOTDaTQ1VDQ73mBZil7G0MAFfFO5seam/Wm9LYQeqcrPxiGMqZS7JLpRkGC2cyd4JSsTaEO7mcx5WGA dAZhCyE2C9uIDoFIDhVSKNYyXuU89jLUwyCu39LAngBSQjFhDmDKv3Ci6FIsLdU2coAZWjGqX6GWYwKb BxLCrsEL4Di4HdeITuMSi+Za6JNQ7av5LrIFbjYLZr ES0cuq4OFBbVQbJjH3BujwV0DNHpIEDgMf1DEWJdWKRcrXPxGFIlTTXXOwHfL5BvuO74JKQOWx1+DQpl fzWjHewBDwXoXNUxa2PaNZr8YW3TIPNoZUt5lGQuRIXkB0Wqj5JgYv07ZYIpYomzU0AqFYrfVmALcCBv sOPqqUaxFm0pZAJuND6uBt0lBNFoLPIeKtNtKIIFVO 6XONBoQTUawYLtTXSeMRMVFI4AMBfdFQI7PEBkpmDhbYIiQWudBH7QRLYbfxFjNUyyVXWIRIp+Pg0KZW 9tm6MoDYhfKLCxNY9ivq3FQWuHFiSrN4D9uKWaW8E0XBrrTh0NBMNiJSYjVRvsRDPCWFjnIB1VBA9foo Q3FV1NcBJoKFClFEQwrSKjEOo4I92bpXLzICdeUL4F ICA+David+Bb9XCYBjBBMuINGfDrQxJLWEQpCoY7MuA5GOx6SkV6DeSX30mCozfoBeOEqsVN5AWU6vHMCg JBYDSK5QgZHjgX7bpiFmWEZfZEAAGqCjK04ruBFaEXUwDPX9IJKsEu4XLNMxC5OqomDjfBswrvZkWCFr UDYFQG2SCQjtdvScuGNviDgeSJ61rEpfSD9AZq2MCa QyDG2mbe4WqBZcFc3RNFTkHx2CNONwYVCqMJPcDRA1PHSzFlYiZKrnNDVjQVXvDDA8CXAkATRnAN9KGd ZpOMYlRHtcNegmJWEhNGNbax7VEZEjDZQdAKg3WvBpHHGlTUBaKOntMNHzHUTtXVI2OBGtZBBcZJ2PWl ObGBAnEBTiFLMlNPFrBNYonw7FJTZqSPWdSeG8QNSw VFSlIIRvZDjqJTAfZRSuHrD4EPWnKRMgID7QBwYyJGMbZPU2ZBJoGFIjZODnye6PICGxXTKyUiBqYUFt FPWeRGYkTQiiJZDgDSX9RDfeDWEoPUDfTW6XUtCiJQOsWKU7NWCtFFKdKXCqaw1DEJHrFPWuTCe1RFUp RSOjNTCmNKwyFKWlMWQ8NsH9CXWxEBWrYZ2HSaUnQG AqQJU6CRQzVASgZMTaly4RBYNmKEJqDlr9VSDgJTIzINYoUWuvSWYvJKZ6LOLrKJAyPAJcHL4ZTwAwJH PmXCjcHOkjUKTvLOFsxz4OGGOfVPZoYiN1TgJuEBKaJQCdRVijNNRtVBL2AWo1UYHmLSWfLG3CLvLfGD GzTTnoMMAvUPBsKUWndl8XXKAxUMDvREGkDjPwGOLd UFQpFHx3pjZmqKYxMSd7CV8AR5GpqtCmOfBMUh4Bk376ZIOlXGBkFm8XG1buPh4dXKWfWLKLEj6IANu4 XmHjIvIbBCV8S7TfPTZbUdA0PFC2CnraClCwYGa6ECM+HTvbTVYoJRXbMGG7RfF7GdU9GrR4AmjzUHZf ERZvQrBgNH1eWUMYPo1+QKzfbLTugGjjZCZMBgY2IAMeVWeiVNOZEr4B ID Date Data Source [id number] 09/28/2020 09:57:00 AM EDT [facility] Name Value Range Interpretation Code Description Data Rima rce(s) Supporting Document(s) SARS-CoV-2 RNA 2019 nCoV Real-Time RT-PCR: NOT DETECTED [facility] This lab was ordered by [facility] and reported by [facility]. 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 [facility] Patient has symptoms related to [facility] When did you start to experience these symptoms [Date and time] [Phen X] [facility] Patient was hospitalized because of this condition [facility] patient was admitted to ICU for [facility] Patient resides in a congregate care setting [facility] status [facility] ID Date Data Source [id number] 08/21/2020 10:06:38 AM EDT [facility] Name Value Range Interpretation Code Description Data Rima rce(s) Supporting Document(s) Progress Note [facility] ENLEHz6jAbMBEdCx57/NTOiyGVFuw7NsKXtoLEu2QMheXHJtE4KeOFZ0dV2oSKX6VXwEOoHmShWgFZA1 [facility] [file] ICAgICAgICAgICAgICAgICAgICAgICAgICAgICAgIC AgICAgICAgICAgICAgICAgICAgICAgICAgICAgICAgICAgICAgICAgICAgICAgICAgICAgICANCiAgIC AgICAgICAgICAgICAgICAgICAgICAgICAgICAgICAgICAgICAgICAgICAgICAgICAgICAgICAgICAgIC AgICAgICAgICAgICAgICAgICAgICAgICAgICAgICAg ICAgICANCiAgICAgICAgICAgICAgICAgICAgICAgICAgICAgICAgICAgICAgICAgICAgICAgICAgICAg ICAgICAgICAgICAgICAgICAgICAgICAgICAgICAgICAgICAgICAgICAgICAgICANCiAgICAgICAgICAg ICAgICAgICAgICAgICAgICAgICAgICAgICAgICAgIC AgICAgICAgICAgICAgICAgICAgICAgICAgICAgICAgICAgICAgICAgICAgICAgICAgICAgICAgICANCi AgICAgICAgICAgICAgICAgICAgICAgICAgICAgICAgICAgICAgICAgICAgICAgICAgICAgICAgICAgIC AgICAgICAgICAgICAgICAgICAgICAgICAgICAgICAg ICAgICAgICANCiAgICAgICAgICAgICAgICAgICAgICAgICAgICAgICAgICAgICAgICAgICAgICAgICAg ICAgICAgICAgICAgICAgICAgICAgICAgICAgICAgICAgICAgICAgICAgICAgICAgICANCiAgICAgICAg ICAgICAgICAgICAgICAgICAgICAgICAgICAgICAgIC AgICAgICAgICAgICAgICAgICAgICAgICAgICAgICAgICAgICAgICAgICAgICAgICAgICAgICAgICAgIC ANCiAgICAgICAgICAgICAgICAgICAgICAgICAgICAgICAgICAgICAgICAgICAgICAgICAgICAgICAgIC AgICAgICAgICAgICAgICAgICAgICAgICAgICAgICAg ICAgICAgICAgICANCiAgICAgICAgICAgICAgICAgICAgICAgICAgICAgICAgICAgICAgICAgICAgICAg ICAgICAgICAgICAgICAgICAgICAgICAgICAgICAgICAgICAgICAgICAgICAgICAgICAgICANCiAgICAg ICAgICAgICAgICAgICAgICAgICAgICAgICAgICAgIC AgICAgICAgICAgICAgICAgICAgICAgICAgICAgICAgICAgICAgICAgICAgICAgICAgICAgICAgICAgIC AgICANCjw/xFLlZ5mgiRVrbvZ4Z3kgHx8HSg9XXJ5my1ThNABkAKdnxkYrQazFIdXxRNNnBxpJVpg6OS pqZI5EtLDxY4WpR2LqIPpaII8ALZCvZFAdjWPmBIHr GCHgIsV5AMZsRGixFA1EkUCtOEkbMWStEWOaIwEdICTrGCDrXRGnAVVbUNKQSMHiARXhNiWpUWYkCXPa ZY9UYOLgY251phXsRr3BIi1OWyCuWW4ylr5WKxGdMLYlUwzPSqc7VZqsQW6FxNArnVHcGwLyQEPHXwYa W6vqn3IfIbToFYMZAMtdKR3On7DasVKfXPz+Pg0KZW 2bh6BbAOcxRjDiXX0ixw3JTKoAUhEyB7RehNnmPPGex4jaNWRxND8glDQtZBE5BB3tbJZtfMJyQNECiZ EpPPcoENdwZESFLUZvtXMuDqA5HdPdWmUcTMV1XAOyPO8hCEpvDP2MCWX0QDyyZOZeXFDxG5tZYlYdMI EqTKGcsVtqHR6CPqXmW3SpiaJoaUUdGyOfFUXOQp9+ GCatccRgXjqJFhE7BULqn2XvJSz6BS2NMENeIVzwSQ6VYHOvgD0rLMffYA5QUlShNOSxJCUMMjLyK46h bDEcZJw4L6HmSlVuMRHtPqrwEEAsEZiiVfExXVTlXfIxFMvrSU4+ID4+LTecPX1TORemvcNzAVQzUx3T HLIrXOCsWI3qAFDsDELcB2L8wCijBTMTChGwA2lzmt diLR6dAHGkP363yXwzlfOgZSNuJBXfBj5HKDAkWWO1KJSwfJSsEbMiEEGKHOaiUO6UsTInWET1iB2qWP wnSUMjKYIiU4uZJcMvkPkfQX90wWdatmPepOVxDUx+Re1KJU2zi9VpRVy0ofRcKKuyGLZ8JRgqLYQwBT ZyTPEaBWM7JOD3TPRQZcNfXCMvPQBzDJxvMXWuDBDz qe9TPIYnNSWrMECxAnBlCKArUXRmATzhSQZgGZZgJkqdDLLyHIAqBA8EEkNpOBYqRWIzVBthREFfYWVu yc8IFGDdXTNeHnG4SoEyJFSnBMJjUGylPBTkNYAaAiWsKWRcUQCkHY4QWsVwBSLiQISkJIOhPNZkKXCh qs7PSXBwFPOyHfQcOOJfZRXoRHKqVFxlFRFxOXV3Qk L6YUVpXGQaPY8IVdBfESAyWCg5BEDbLTIbHYXicp8GKMUpGJHaZLV4VYJlDIYtZKXtQOcvAKVwWPOtHe quKQKjWDBkFP4SBlOqMBBeKBF2JBEbHGBdQSCrlf0EAFKiYKJlPQE0RrKlTZUaNZFrUKayLYYkENWfDX Q2AFDkIDIlYF4KPzOxZIPkBYL6RSKaKPIpNVZqpc3K RAKbQKTiMHZuPFRwBZGgFZHlNCiuNZNvOTM5HHEkRBRrEZTwZS3XGiOvWYUiASP0ERPqEIBkRPRoou5E HASfQLSbEPc5EXWxKZBsQCFzFCqgHDZiBQJ2WLU6YXLmMOXnQT1YYnDiNHFzALYeFCCiISPaFYRkvx8H EESfBMTnJnm2LTZqGZCtLZQqZKopBUSjRKA9TCr5FH RxEJBiFZ1NGwQxXJRaZlbkFXnjZHAlTZLtsj8DWAIvAUMaFOX9FIEoHCErTREiEHtiGQKjKQD4CvC2ZB AnKSAcYJ5DKpXkSBCdQwz5PYryXQXfZUFrzw0FOEAeYAUvZQksQuYbHTIlQCZrBDnkOVDkTHSrHSL8FN BiBFLxTK0JQqHyKOVvAlT0IzAoRFFjREAnzz5EPDUr ENEjFIbdPiLePXJwVMOdGSmaIIDbQEDbBByiCWTlZSYqBR6BCkBdBEYlCgVlEkrbMHMlTSQcnt1LjMFb wGgbpc9SAJaEDx6FvZfoKDY7GNbuHl0teYXaFBUjWAREJc0RmpYjHCAfOQUQPEfrBCHlWWZsTxP2JFVm BNNeLrp3QfWaJZbbZBNeYULxUYL0RjfrTdU9MDOvEY qfTLXfUMDnUbamKOL6SDW8WoSfNHWeFSOpDYD+HG6vEZk+Xm7Hp4PaenK1daYpXRgpHyC8Ys7MNENPO9 YNCg== ID Date Data Source [id number] 08/03/2020 04:35:[address] [facility] SAMMY VARGAS NMRN: [id number] Number: [id number] Date: 07/31/2020 00:00Received Date: 07/31/2020 14:47Physician(s): OUSMANE WARD MD MARZOUK, MARK F, MD Copy To:CARLY RANGEL MDSpecimen(s) ReceivedA: THYROID, RIGHT, FNA, CONSULTATION ([id number]) 1Clinical History:Original diagnosis received from [facility] 07/29/2020:"Atypia of Undetermined Significance"DiagnosisTHYROID, RIGHT, FNA, CONSULTATION ([id number]) 07/29/2020: SUSPICIOUS FORMALIGNANCY (SEE MICROSCOPIC DESCRIPTION)Comment/pf/calReviewing Cytotech: LACY Biggs (ASCP)Min Hall M.D.Electronically Signed By Latoya Martini M.D. 08/03/2020 16:35:25The attending pathologist named above attests that he/she has personallyreviewed the relevant preparation(s) for the specimen(s) and rendered thefinal diagnosis. Microscopic DescriptionSpecimen is composed of atypical follicular cells seen singly and ingroups with nuclear grooving, pale chromatin, irregular nuclear membranesand a rare pseudoinclusion. No colloid is identified. The backgroundconsists of macrophages, scattered neutrophils and lymphocytes. Cytologicfindings are suspicious for papillary thyroid carcinoma. /pf/joo Gross DescriptionReceived 1 slide labeled "[id number] Laureen Vargas" with pathology reportfor consult from [facility], Department of Laboratories, [address] [place] [address]. . [phone].This report may include one or more immunohistochemical stain results thatuse analyte specific reagents. All positive and negative controls havebeen reviewed by the attending pathologist and are satisfactory. The testswere developed and their performance characteristics determined by [facility] Pathololgy department. They have not been cleared or approved by [place] Food and Drug Administration. The FDA has determined that suchclearance or approval is not necessary. Name Value Range Interpretation Code Description Data Rima rce(s) Supporting Document(s) ID Date Data Source [id number] 07/16/2020 04:48:02 PM [facility] Name Value Range Interpretation Code Description Data Rima rce(s) Supporting Document(s) Progress Note [facility] IIPPLf8tFdDFAtYp13/VZRvzBOUku4VeDGzcXBs4CPrlBAPeH1OnVCY2sC9nNMS6FHtUMpVgQcBbSfI9 lbm [file] [id number]== ID Date Data Source [id number] 06/01/2020 03:25:43 PM [facility] Name Value Range Interpretation Code Description Data Rima rce(s) Supporting Document(s) Progress Note [facility] SDUNAa1cCuNNRqHk35/QHJcwKGGjv0ZkYIadHPt0CPpuEVWlD6BgDSR1zW1kMUZ5BVgVMuHvJzRrRCU6 lbm [file] ICAgICAgICAgICAgICAgICAgICAgICAgICAgICAgICAgICAgICAgICAgICAgICAgICAgICAgICAgICAg HFYvWZYbSAQaRJElINTaLAKvIB9OGXPmNPBfGTOlGKKiWXWfKNWbDFKmQKHnEOIgMXGzVJIqCIJhACFq ICAgICAgICAgICAgICAgICAgICAgICAgICAgICAgIC AuQHAjODIhUGVmXMYpLADcCVXmPOXyTQPcZSGnCU5MKTYfEPEsBSUqEUAvXZYxKXEdZYIdGNThKDScKJ AgICAgICAgICAgICAgICAgICAgICAgICAgICAgICAgICAgICAgICAgICAgICAgICAgICAgICAgICAgIC NvOXZmLSRcHZLbQL5HKCSsPRGgDXMcHOIqTUUbGZIl ICAgICAgICAgICAgICAgICAgICAgICAgICAgICAgICAgICAgICAgICAgICAgICAgICAgICAgICAgICAg SWDhZLVkALYlVSQvTNLqHJSgFVRgOQ0YYWBxVKFuDQCpXBSnRKDgYDViFLKiVARvRDPhGQCaCERqNWEx ICAgICAgICAgICAgICAgICAgICAgICAgICAgICAgIC BsJSHiOIHuRAJzERTcVCHfIBDtCQAkUMMwLHEqMCMdYL5FDRZnWKRxKOOhXKByEDMgGQDbRXOiQGDmZN AgICAgICAgICAgICAgICAgICAgICAgICAgICAgICAgICAgICAgICAgICAgICAgICAgICAgICAgICAgIC OzYOGwMAPcMNHtYFHkPB9AROVaISUiNWWmGGWaHJAm ICAgICAgICAgICAgICAgICAgICAgICAgICAgICAgICAgICAgICAgICAgICAgICAgICAgICAgICAgICAg GENzVWVyMRZcMXRiXPPlHHEbUCMsCYMuNR1WYSVgRORdAHZhVZFbRWQcSOVoUXMmPSBbYEItPDTdXJZo ICAgICAgICAgICAgICAgICAgICAgICAgICAgICAgIC PoGLPqCNLvKDWvKHSaSKXaDWQmVNCsFTDeWVHjUXQjYNJrMN4DFHGxEWJzMKVpQPKdAEEgNBJjSTTpQG AgICAgICAgICAgICAgICAgICAgICAgICAgICAgICAgICAgICAgICAgICAgICAgICAgICAgICAgICAgIC OsVRToJMTvSWRfNHYrPQKrRS3ZUNWzKDPnWPDtKKZy ICAgICAgICAgICAgICAgICAgICAgICAgICAgICAgICAgICAgICAgICAgICAgICAgICAgICAgICAgICAg XDKrPGNrHKMrDMLkUHAwELEkEHGtFVZoRFYiQU8ZRT86iWVcs6X5SJFxYF5heic/Xo5UMQpwllXazNJr VC5DNmPiPV1fqu4XNjRwAA6rdf4FALdVVvMtY5J7nZ VqUNUgLWEOCsZxC61iSVyfFx76NGgxAEJbLhKwNMh4Xe4UWpXuJ8xkMUQcFbI5FCPzVbM5BJBsLpM7IO RuSzMlJOOwUPUyRJ5CUJRbK168srUtDC2VJl7FDsPmMT0qzq2LWvmvWMBfBlfWJpc2QRubOZ1ZyIFamT BpIMJpCNKVRtOdJ0sjc9UeYlixZQCNYJyiSG9Gw3Ap dCAxDQo+Wh6XRR3no0EbOGepZYRcYG5lxr8HHVjAHsQeY7FszZwoWDMxq0vdCZTxQN0liIEkMLI6PYBo ed19l9myZnJrcv7pe2nbEG1RWWP1DKKfOM5eGJYaRGNkPuO9HHJQHN5GIZTjAGShaNKxPWAbIYYNGI0U IOwtQQA0PFBdqfInwHUdNWquBV0GKIZjyiBvHzfkWX BSDQo+Zl0ZRT0qb8WlGRwaOAXpLK8nxj4CWPvNJlNuA9M4oEKzT2H4UIikBs3KZLZhCVTuEfEfCJFKUF skAP3ABC7lllD2OC7LtMJkFLMiDGJtaORbEAj8Y02ogGNnPTplSL5LBWY+David+Se4EZTXbRCSjMTOmVy HuDOXRToZjS7QhW3ULs6DiC1MjQQ64zOhhpdIvJOlr PV6DAF5zXRTrKMYGBF4IhRPleP1arqMaSBGzIXLGAiLoM64zrNAdFBCpFTC0JUGlMu1JZBJnY4MaikIm yPjedqHqZCTnKUUMBS5HKGoxoqKolLFuoVutIW73eIhaTZ9PTk0ZZdJuCQ7kwt4ZkTNzVd2QSPCuHL7S NJWdUWNhXBInNFN3ZVMtPuVmMWifSZLtJPEcDXT0MV HqXLUnUK7PUaUnWFXrNbQ8ZlhhCVRuCWAzrs0FBGMwLJApVsZoGaZqLEWuCZQwFDvmWUFtEGWwIHX1AL FdXDRvLZ8DMuSdVBZvKPRjSfWfEJVyEPPags6SNHTcHXTbNkTbScRlSLGjSAQzLVecPAAdLER0AAh7FD KcSVIzZU8IHcUpBYTxWRB5QPKiANQqJRWvjt2GKXLy KHXnDLH6DUVpRQWdRSCvHQfbEWJlONO1ZDS7BETlOELcOX2ERnByIUYyESqnWZUjUJOmYBDvhi1BVBEa LOYlWME1FxOlTPRxRYMsSNjdPOTrRKToWxZ7BMLbGKOkWT0TIkHyDULaGVK0IHOrTHArKEMphm4JEPYf LENrDHTwMaBrYLGlTJOqIHfmLINbGZTlXHy2HVBbDF PqVR0WLwZnPYCpYYQ0XNyoLUCxRREyfl8YJENaFABhDVi6EBXqQLQwMVPoZXhyYDBjPKNfKVK0QSIcOH GcNQ7OQwBwVPGaAdP1IlTjVSWlXNOnjy6MLIYvZQCnSjlgHJTqWAKeZSWnTTieTMNkZOM4GOv5KKPoLY UvHQ7TGmXxVYQhErWwEoSsEFUwSPWoqv6JDTWyYEPv KDM1RNBaKXXbHLYxRRzzPWPoUZA1ZVY5UFJkNCDcFX3PWtEoHSRkYsW8NSRqUXZuVWNzxi1HPNYjJBQb KrQ2KkIgOXWmFMBlLDjsDGUfSHO4PZY1JVVjINEgBA1RTpZkTHMqPos9LNAsDNSyCCHsje1AZBNdAAYa Yan7ZPObIMIxMOSxVFf9zlUumHMmWQn1OY6AH5Lauw BiXuTWTr6Bx155EYWzFGLyBf2PK1doDs0hIQEyFTMKEe5EOSo0QyqcDVCtFFCqBPUyHUEnYJe4R8TnYm O1NQm3OxN3PLA+TWw4TYSqIbIzWELsGJNxSYOtXsNuCzAeNPblJvLaKuBkCQ4uBUIBLh9+DQpzdGFydH amDKRPDqP2YXw1QJlpTRAJVx6M ID Date Data Source [id number] 05/12/2020 10:26:00 AM EST [facility] ([facility]) Name Value Range Interpretation Code Description Data Rima rce(s) Supporting Document(s) Triiodothyronine (T3) Free [Mass/volume] in Serum or Plasma 3.2 pg/ mL 2.0-4.4 [facility] ([facility]) Thyroxine (T4) [Mass/volume] in Serum or Plasma 5.8 ug/dL 4.5-12.5 [facility] ([facility]) Thyroperoxidase Ab [Units/volume] in Serum or Plasma Laborat ory test result 0-34 [facility] Thyrotropin [Units/volume] in Serum or Plasma 0.90 uIU/mL 0.47-5.01 [facility] ([facility]) Thyroxine (T4) free [Mass/volume] in Serum or Plasma 0.95 ng/dL 0.93- 1.70 [facility] ([facility]) ID Date Data Source [id number] 05/14/2020 08:49:00 AM EST [facility] Name Value Range Interpretation Code Description Data Rima rce(s) Supporting Document(s) Thyroperoxidase Ab [Units/volume] in Serum or Plasma <9 IU/mL 0-34 [facility] ID Date Data Source [id number] 05/14/2020 08:49:00 AM [facility] Value Range Interpretation Code Description Data Rima rce(s) Supporting Document(s) Triiodothyronine (T3) Free [Mass/volume] in Serum or Plasma 3.2 pg/ mL 2.0-4.4 [facility] ID Date Data Source [id number] 05/13/2020 07:25:00 AM [facility] Value Range Interpretation Code Description Data Rima rce(s) Supporting Document(s) Thyroxine (T4) free index in Serum or Plasma by calculation 0.95 NG/DL 0.93 - 1.70 [facility] ID Date Data Source [id number] 05/12/2020 07:17:00 PM [facility] Value Range Interpretation Code Description Data Rima rce(s) Supporting Document(s) Thyrotropin [Units/volume] in Serum or Plasma by Detec tion limit <= 0.05 mIU/L 0.90 uIU/mL 0.47 - 5.01 [facility] ID Date Data Source [id number] 05/12/2020 07:17:00 PM [facility] Value Range Interpretation Code Description Data Rima rce(s) Supporting Document(s) Thyroxine (T4) [Mass/volume] in Serum or Plasma 5.8 UG/DL 4.5 - 12.5 [facility] ID Date Data Source [id number] 04/06/2020 01:53:00 PM EST [facility] ([facility]) Name Value Range Interpretation Code Description Data Rima rce(s) Supporting Document(s) Calcidiol [Mass/volume] in Serum or Plasma 13 ng/mL [facility] ([facility]) Is patient fasting? Y Thyrotropin [Units/volume] in Serum or Plasma 0.65 uIU/mL 0.47-5.01 [facility] ([facility]) Is patient fasting? Y ID Date Data Source [id number] 04/06/2020 01:53:00 PM EST [facility] ([facility]) Name Value Range Interpretation Code Description Data Rima rce(s) Supporting Document(s) Cve Panel Laboratory test result [facility] ([facility]) Is patient fasting? Y Cholesterol 163 mg/dL 131-200 [facility] ([facility]) Is patient fasting? Y LDL 99 mg/dL 65-175 [facility] ([facility]) Is patient fasting? Y Triglycerides 103 mg/dL 35-160 [facility] ([facility]) Is patient fasting? Y HDL 53 mg/dL 29-86 [facility] ([facility]) Is patient fasting? Y LDL/HDL 1.87 1.47-3.22 [facility] ([facility]) Is patient fasting? Y Risk Factor 3.1 3.2-4.4 Below low normal [facility] ([facility]) Is patient fasting? Y ID Date Data Source [id number] 04/06/2020 01:53:00 PM EST [facility] ([facility]) Name Value Range Interpretation Code Description Data Rima rce(s) Supporting Document(s) Hemoglobin A1c/Hemoglobin.total in Blood 5.2 % 4.4-6.1 [facility] ([facility]) Is patient fasting? Y ID Date Data Source [id number] 04/06/2020 01:53:00 PM EST [facility] ([facility]) Name Value Range Interpretation Code Description Data Rima rce(s) Supporting Document(s) Comprehensive [employer] Laboratory test result [facility] ([facility]) Is patient fasting? Y Potassium 4.2 meq/L 3.6-5.0 [facility] ([facility]) Is patient fasting? Y Chloride 107 meq/L 98-107 [facility] ([facility]) Is patient fasting? Y Sodium 139 meq/L 134-153 [facility] ([facility]) Is patient fasting? Y Co2 24 meq/L 22-30 [facility] ([facility]) Is patient fasting? Y BUN 9 mg/dL 7-21 [facility] ([facility]) Is patient fasting? Y Glucose 97 mg/dL 65-110 [facility] ([facility]) Is patient fasting? Y BUN/Creat 18 8-27 [facility] ([facility]) Is patient fasting? Y Total Protein 6.5 g/dL 6.3-8.2 [facility] ([facility]) Is patient fasting? Y Creatinine 0.5 mg/dL 0.7-1.5 Below low normal [facility] ( [facility]) Is patient fasting? Y A/G Ratio 1.8 0.8-2.0 [facility] ([facility]) Is patient fasting? Y Albumin 4.2 g/dL 3.9-5.0 [facility] ([facility]) Is patient fasting? Y Globulin 2.3 GM/DL 2.4-3.2 Below low normal [facility] ( [facility]) Is patient fasting? Y Total Bili Laboratory test result 0.2-1.3 [facility] ([facility]) Is patient fasting? Y Calcium 8.7 mg/dL 8.4-10.2 [facility] ([facility]) Is patient fasting? Y Alkaline Phos 92 U/L 38-126 [facility] ([facility]) Is patient fasting? Y Sgot/Ast 18 U/L 5-40 [facility] ([facility]) Is patient fasting? Y SGPT/Alt 17 U/L 7-56 [facility] ([facility]) Is patient fasting? Y Anion Gap 8.0 mmol/L 8.0-16.0 [facility] ([facility]) Is patient fasting? Y Age 25 yrs [facility] ([facility]) Is patient fasting? Y Non-Aa GFR Laboratory test result [facility] ([facility]) Is patient fasting? Y Afr Amer GFR Laboratory test result [facility] ([facility]) Is patient fasting? Y ID Date Data Source [id number] 04/06/2020 01:53:00 PM EST [facility] ([facility]) Name Value Range Interpretation Code Description Data Rima rce(s) Supporting Document(s) CBC W/Automated Diff Laboratory test result [facility] ([facility]) Is patient fasting? Y WBC 6.6 10^3/uL 4.2-11.0 [facility] ([facility]) Is patient fasting? Y RBC 4.34 10^6/uL 4.20-5.40 [facility] ([facility]) Is patient fasting? Y Hemoglobin 13.3 g/dL 12.0-16.0 [facility] ([facility]) Is patient fasting? Y MCV 91.7 fL 81.0-101 [facility] ([facility]) Is patient fasting? Y MCH 30.6 pg 27.0-34.0 [facility] ([facility]) Is patient fasting? Y Hematocrit 39.8 % 37.0-47.0 [facility] ([facility]) Is patient fasting? Y RDW 11.9 % 11.5-14.5 [facility] ([facility]) Is patient fasting? Y Platelets 308 10^3/uL 150-450 [facility] ([facility]) Is patient fasting? Y MCHC 33.4 g/dL 31.0-36.0 [facility] ([facility]) Is patient fasting? Y Lymph 25.5 % 25.0-40.0 [facility] ([facility]) Is patient fasting? Y MPV 10.0 fL 7.4-10.4 [facility] ([facility]) Is patient fasting? Y Neut 65.2 % 37.0-80.0 [facility] ([facility]) Is patient fasting? Y [place] 6.4 % 3.0-8.0 [facility] ([facility]) Is patient fasting? Y Eos 2.1 % 0.0-7.0 [facility] ([facility]) Is patient fasting? Y Baso 0.5 % 0.0-2.5 [facility] ([facility]) Is patient fasting? Y %Ig 0.3 % 0.0-0.0 Above high normal [facility] ([facility]) Is patient fasting? Y %NRBC 0.0 % 0.0-0.0 [facility] ([facility]) Is patient fasting? Y #Lymph 1.67 10^3/uL 0.60-3.40 [facility] ([facility]) Is patient fasting? Y #Neut 4.28 10^3/uL 2.00-6.90 [facility] ([facility]) Is patient fasting? Y #[place] 0.42 10^3/uL 0.00-0.90 [facility] ([facility]) Is patient fasting? Y #Baso 0.03 10^3/uL 0.00-0.20 [facility] ([facility]) Is patient fasting? Y #Ig 0.02 10^3/uL 0.00-0.10 [facility] ([facility]) Is patient fasting? Y #Eos 0.14 10^3/uL 0.00-0.70 [facility] ([facility]) Is patient fasting? Y RBC Morph Laboratory test result [facility] ([facility]) Is patient fasting? Y Manual Diff Laboratory test result M [facility] ([facility]) Is patient fasting? Y #NRBC 0.00 10^3/uL 0.00-0.00 [facility] ([facility]) Is patient fasting? Y ID Date Data Source [id number] 04/07/2020 02:20:00 PM [facility] Name Value Range Interpretation Code Description Data Rima rce(s) Supporting Document(s) Hemoglobin A1c/Hemoglobin.total in Blood 5.2 % 4.4 - 6.1 [facility] {A1]{HB] ID Date Data Source [id number] 04/06/2020 05:02:00 PM [facility] Name Value Range Interpretation Code Description Data Rima rce(s) Supporting Document(s) Thyrotropin [Units/volume] in Serum or Plasma by Detec tion limit <= 0.05 mIU/L 0.65 uIU/mL 0.47 - 5.01 [facility] ID Date Data Source [id number] 04/06/2020 05:02:00 PM [facility] Name Value Range Interpretation Code Description Data Rima rce(s) Supporting Document(s) Calcidiol [Moles/volume] in Serum or Plasma 13 NG/ML [facility] VITAMIN-D(2 5HYDROXY) Deficiency: <=20 ng/ml Insufficiency: 21-29 ng/ml Preferred level: => 30 ng/ml ID Date Data Source [id number] 04/06/2020 04:36:00 PM EST [facility] Name Value Range Interpretation Code Description Data Rima rce(s) Supporting Document(s) CVE PANEL [facility] al LIPID PANEL Cholesterol [Mass/volume] in Serum or Plasma 163 MG/DL 131 - 200 [facility] Deprecated Triglyceride [Mass/volume] in Serum or Plasma 103 MG/DL 3 5 - 160 [facility] HDL 53 MG/DL 29 - 86 [facility] al Cholesterol in LDL [Mass/volume] in Serum or Plasma by Direc t assay 99 mg/dL 65 - 175 [facility] Cholesterol.total/Cholesterol in HDL [Mass Ratio] in Serum o r Plasma 3.1 3.2 - 4.4 L [facility] LDL/HDL 1.87 1.47 - 3.22 [facility] ital CVE RISK CHOL/HDL LDL/HDLMEN: 1/2 AVERAGE 3.43 1.00 AVERAGE 4.97 3.55 2X AVERAGE 9.55 6.25 3X AVERAGE 23.99 7.99WOMEN: 1/2 AVERAGE 3.27 1.47 AVERAGE 4.44 3.22 2X AVERAGE 7.05 5.03 3X AVERAGE 11.04 6.14 ID Date Data Source [id number] 04/06/2020 04:36:00 PM EST [facility] Name Value Range Interpretation Code Description Data Rima rce(s) Supporting Document(s) COMPREHENSIVE METABOLIC PANEL [facility] COMPREHENSIVE METABOLIC PANEL Sodium [Moles/volume] in Serum or Plasma 139 mEq/L 134 - 153 [facility] Potassium [Moles/volume] in Serum or Plasma 4.2 mEq/L 3.6 - 5.0 [facility] Chloride [Moles/volume] in Serum or Plasma 107 mEq/L 98 - 107 [facility] Carbon dioxide, total [Moles/volume] in Serum or Plasma 24 MEQ/L 22 - 30 [facility] Glucose [Mass/volume] in Serum or Plasma 97 MG/DL 65 - 110 [facility] BUN 9 MG/DL 7 - 21 [facility] Creatinine [Mass/volume] in Serum or Plasma 0.5 MG/DL 0.7 - 1.5 L [facility] BUN/CREAT 18 8 - 27 [facility] al Protein [Mass/volume] in Serum or Plasma 6.5 G/DL 6.3 - 8.2 [facility] Albumin [Mass/volume] in Serum or Plasma 4.2 G/DL 3.9 - 5.0 [facility] Globulin [Mass/volume] in Serum by calculation 2.3 GM/DL 2.4 - 3.2 L [facility] A/G RATIO 1.8 0.8 - 2.0 [facility] Calcium [Mass/volume] in Serum or Plasma 8.7 MG/DL 8.4 - 10.2 [facility] Bilirubin.total [Mass/volume] in Serum or Plasma <0.7 MG/DL 0.2 - 1.3 [facility] Alkaline phosphatase [Enzymatic activity/volume] in Serum or Plasma 92 U/L 38 - 126 [facility] Aspartate aminotransferase [Enzymatic activity/volume] in Serum or Plasma 18 U/L 5 - 40 [facility] Alanine aminotransferase [Enzymatic activity/volume] in Seru m or Plasma 17 U/L 7 - 56 [facility] Anion gap 3 in Serum or Plasma 8.0 mmol/L 8.0 - 16.0 [facility] AGE 25 yrs [facility] al NON-AA GFR >60 mL/min [facility] ital AFR AMER GFR >60 mL/min [facility] Ho spital Male GFR In terprentation 20-49 yrs >60 mL/min Normal 50-59 yrs >56 mL/min Normal 60-69 yrs >49 mL/min Normal 70-79yrs >42 mL/min Normal 80 and above >35 mL/min Normal Female GFR Interpretation 20-39 yrs >60 mL/min Normal 40-49 yrs >58 mL/min Normal 50-59 yrs >51 mL/min Normal 60-69 yrs >45 mL/min Normal 70-79 yrs >39 mL/min Normal 80 and above >32 mL/min Normal ID Date Data Source [id number] 04/06/2020 03:47:00 PM EST [facility] Name Value Range Interpretation Code Description Data Rima rce(s) Supporting Document(s) CBC W/AUTOMATED DIFF [facility] COMPLETE BLOOD COUNT Leukocytes [#/volume] in Blood by Automated count 6.6 10^3/uL 4.2 - 1 1.0 [facility] Erythrocytes [#/volume] in Blood by Automated count 4.34 10^6/uL 4. 20 - 5.40 [facility] Hemoglobin [Mass/volume] in Blood 13.3 g/dL 12.0 - 16.0 [facility] Hematocrit [Volume Fraction] of Blood by Automated count 39.8 % 3 7.0 - 47.0 [facility] Erythrocyte mean corpuscular volume [Entitic volume] by Auto mated count 91.7 fL 81.0 - 101 [facility] Erythrocyte mean corpuscular hemoglobin [Entitic mass] by Automated count 30.6 pg 27.0 - 34.0 [facility] Erythrocyte mean corpuscular hemoglobin concentration [Mass/volume] by Automated count 33.4 g/dL 31.0 - 36.0 [facility] Erythrocyte distribution width [Ratio] by Automated count 11.9 % 11.5 - 14.5 [facility] Platelets [#/volume] in Blood by Automated count 308 10^3/uL 150 - 45 0 [facility] Platelet mean volume [Entitic volume] in Blood by Automated count 10.0 fL 7.4 - 10.4 [facility] Neutrophils/100 leukocytes in Blood by Automated count 65.2 % 37. 0 - 80.0 [facility] Lymphocytes/100 leukocytes in Blood by Manual count 25.5 % 25.0 - 40.0 [facility] Monocytes/100 leukocytes in Blood by Automated count 6.4 % 3.0 - 8.0 [facility] Eosinophils/100 leukocytes in Blood by Automated count 2.1 % 0.0 - 7.0 [facility] Basophils/100 leukocytes in Blood by Automated count 0.5 % 0.0 - 2.5 [facility] %IG 0.3 % 0.0 - 0.0 [facility] % 0.0 - 0.0 [facility] al Neutrophils [#/volume] in Blood by Automated count 4.28 10^3/uL 2.00 - 6.90 [facility] Lymphocytes [#/volume] in Blood by Automated count 1.67 10^3/uL 0.60 - 3.40 [facility] Monocytes [#/volume] in Blood by Automated count 0.42 10^3/uL 0.00 - 0.90 [facility] Eosinophils [#/volume] in Blood by Automated count 0.14 10^3/uL 0.00 - 0.70 [facility] Basophils [#/volume] in Blood by Automated count 0.03 10^3/uL 0.00 - 0.20 [facility] #IG 0.02 10^3/uL 0.00 - 0.10 [facility] #NRBC 0.00 10^3/uL 0.00 - 0.00 [facility] ospital MANUAL DIFF NOT INDICATED [facility] RBC MORPH NOT INDICATED [facility] spital ID Date Data Source [id number] 02/12/2020 12:00:00 AM EDT [facility] Name Value Range Interpretation Code Description Data Rima rce(s) Supporting Document(s) SARS coronavirus 2 RNA [Presence] in Res piratory specimen by AMINA with probe [facility] This lab was ordered by Mars Galvez and reported by [employer]. Procedure Social History Code Duration Value Status Description Data Source(s ) Alcohol intake 10/02/2020 12:00:00 AM EDT Ex-drinker (finding) comp leted Ex- drinker (finding) [facility] Tobacco use and exposure 10/02/2020 12:00:00 AM EDT Never used co mpleted Never used [facility] Smoking 10/02/2020 12:00:00 AM EDT Never smoker completed Never s riker [facility] Alcohol intake 08/05/2020 12:00:00 AM EDT Current drinker of al cohol (finding) completed Current drinker of alcohol (finding) [facility] Alcohol intake 05/19/2020 12:00:00 AM EST Current drinker of al cohol (finding) completed Current drinker of alcohol (finding) [facility] Vital Signs ID Date Data Source UNK Name Value Range Interpretation Code Description Data Source(s) Body weight 246.00 [lb_av] 246.00 [lb_av] MEDEN T ([facility]) Body weight 111.586 kg 111.586 kg MEDENT ([facility]) Respiratory rate 16 /min 16 /min MEDENT ( [facility]) Oxygen saturation in Arterial blood by Pulse oximetry 99 % 99 % [facility] Body height 64 [in_i] 64 [in_i] [facility] ([facility]) 5'4" Body mass index (BMI) [Ratio] 42.2 kg/m2 42.2 k g/m2 [facility] ([facility]) Body surface area Derived from formula 2.14 m2 2.14 m2 [facility] Systolic blood pressure 122 mm[Hg] 122 mm[Hg] M EDENT ([facility]) Diastolic blood pressure 76 mm[Hg] 76 mm[Hg] [facility] ([facility]) Heart rate 76 /min 76 /min [facility] ([facility]) Body temperature 97.8 [degF] 97.8 [degF] [facility] ([facility]) Body weight 111.642 kg 111.642 kg [facility] ([facility]) Body height 64 [in_i] 64 [in_i] [facility] ([facility]) 5'4" Body mass index (BMI) [Ratio] 42.2 kg/m2 42.2 k g/m2 [facility] ([facility]) Body surface area Derived from formula 2.14 m2 2.14 m2 [facility] ([facility]) Systolic blood pressure 122 mm[Hg] 122 mm[Hg] M EDENT ([facility]) Diastolic blood pressure 78 mm[Hg] 78 mm[Hg] [facility] ([facility]) Heart rate 82 /min 82 /min [facility] ([facility]) Body temperature 97.7 [degF] 97.7 [degF] [facility] ([facility]) Respiratory rate 16 /min 16 /min [facility] Oxygen saturation in Arterial blood by Pulse oximetry 98 % 98 % [facility] ([facility]) Body weight 246.12 [lb_av] 246.12 [lb_av] MEDEN T ([facility] ID Date Data Source [id number] 10/13/2020 01:04:43 PM [facility] Name Value Range Interpretation Code Description Data Source(s) WEIGHT RECORDED 243.2 lb 243.2 lb [facility] WEIGHT RECORDED 255 lb 255 lb [facility] Body height Measured 63 in 63 in [facility] ID Date Data Source [id number] 08/21/2020 10:06:38 AM [facility] Name Value Range Interpretation Code Description Data Source(s) WEIGHT RECORDED 241.8 lb 241.8 lb [facility] Body height Measured 62.99 in 62.99 in [facility] ID Date Data Source [id number] 06/01/2020 03:25:43 PM [facility] Name Value Range Interpretation Code Description Data Source(s) WEIGHT RECORDED 244 lb 244 lb [facility] Body height Measured 63 in 63 in [facility] Patient Treatment Plan of Care Planned Activity Planned Date Details Description Data Source (s) Calcium Carbonate 500 MG Chewable Tablet 10/05/2020 12:00:00 AM [facility] Levothyroxine Sodium 0.175 MG Oral Tablet 10/05/2020 12:00:[address] [facility] Docusate Sodium 100 MG Oral Capsule 10/05/2020 12:00:00 AM [facility] Ibuprofen 400 MG Oral Tablet 10/05/2020 12:00:00 AM [facility] Acetaminophen 325 MG Oral Tablet 10/05/2020 12:00:00 AM [facility] Ondansetron 4 MG Disintegrating Oral Tablet 10/05/2020 12:00:00 AM [facility] 0.4 ML Enoxaparin sodium 100 MG/ML Prefilled Syringe 021 12:00:00 AM [facility] bacitracin zinc 0.5 UNT/MG Topical Ointment 10/05/2020 12:00:00 AM [facility] Acetaminophen 325 MG / Hydrocodone Bitartrate 5 MG Ora l Tablet 10/05/2020 12:00:00 AM [facility] ondansetron (ZOFRAN-ODT) disintegrating tablet 4 mg 10/03/19 08:41:21 PM [facility] Docusate Sodium 100 MG Oral Capsule 10/02/2020 08:41:20 PM [facility] Melatonin 3 MG Oral Tablet 10/02/2020 08:41:20 PM [facility] 12 HR Bupropion Hydrochloride 150 MG Extended Release Oral Tablet 05/12/2020 12:00:00 AM [facility] Loratadine 10 MG Oral Tablet 04/20/2020 12:00:00 AM [facility]
--- OUTSIDE RECORDS SUMMARY | 2021-04-02 12:28 | CCD ---
Author Author [facility] Organization [facility] Address Unknown Phone Unavailable Care Team Providers Care Manager Play Name Role Phone CannanNikole ALISSA Unavailable Unavailable Arnett, M Shazia PA-C Unavailable [...] Arnett, M Shazia PA-C Unavailable Unavailable Nalla, Anais Unavailable Nalla, Anais Unavailable Nalla, Anais Unavailable Terell KC Unavailable Unavailable MARZOUK, A CHACHA MD Unavailable [...] MARZOUK, Shefali BURNHAM MD Unavailable Unavailable NALLA, ANAIS Unavailable Unavailable JASON, Dang TELLO MD Unavailable [...] Unavailable JASON, Dang TELLO MD Unavailable Unavailable JSAON, Dang TELLO MD Unavailable Unavailable JASON, Dang TELLO MD Unavailable Unavailable JASON, Dang TELLO MD Unavailable Unavailable JASON, Dang TELLO MD Unavailable Unavailable JASON, Dang TELLO MD Unavailable Unavailable Ruffin, M Christopher PA-C Unavailable [...] Unavailable Ruffin, M Christopher PA-C Unavailable Unavailable ESTRADA ., T RODGER . Unavailable Unavailable ESTRADA ., T RODGER . Unavailable Unavailable Marzouk, F Ousmane Unavailable Unavailable [...] Unavailable Unavailable Marzouk, F Ousmane Unavailable Unavailable Robert Lorenzo MD Unavailable Unavailable [...] is protected by Article 27-F of the [facility] Public Health law. If you continue you may have access to information: Regarding HIV / AIDS; Provided by facilities licensed or operated by the [facility] Office of Mental Health; or Provided by the [facility] Office for People With Developmental Disabilities. If such information is present, then the following [facility] mandated warning applies: This information [...] law may result in a fine or chcf sentence or both. A general authorization for the release of medical or other information is NOT sufficient authorization for further disc losure. Allergies and Adverse Reactions Type Description Substance Reaction Status Data Source(s ) Food allergy ONION-IN FOOD ONION-IN FOOD N&V [facility] Propensity to adverse reactions VENLAFAXINE VENLAFAXINE [facility] Drug Allergy Drug Allergy NKDA [facility] ([facility]) Family History Family Member Name Family Member Gender Family Member Status Date o f Status Description Data Source(s) Unknown Male Problem [facility] ([facility]) Encounters Encounter Providers Location Date Indications Data Source(s ) Outpatient Attender: Anais JacksonAttender: ANAIS JACKSON 09/09/2021 12:00:00 AM [facility] Outpatient Attender: Ousmane Ward 05/04/2021 12:00:00 AM [facility] Outpatient Attender: Nikole MAXWELL 09:17:18 AM EST - 04/02/2021 10:29:47 AM EST [facility] ([facility]) Outpatient Attender: Anais Hopkinsender: ANAIS JACKSONReferrer: RODGER Jarquin [id number] 03/04/2021 12:00:00 AM EDT - [facility]04[facility] Rodrigo Ruffin PA-C 12/14/2020 11:54:35 AM EDT - 12/14/2020 01:23:06 PM EDT [facility] ([facility]) Outpatient Attender: Ousmane Ward [id number] 11/03/2020 12:00:00 AM [facility] Outpatient Attender: Ousmane Grayson er: Ousmane WardConsultant: OMER GOMEZ MD [id number] 10/05/2020 12:00:00 AM EDT - 10/05/2020 12:00:00 AM EDT Disorder of thyroid, unspecified [facility] Disorder of thyroid, unspecified Patient discharged. Outpatient Attender: NESTOR KCReferrer: CHACHA WARD MD [id number] 09/28/2020 12:00:00 AM [facility] Outpatient Attender: Ousmane Ward [id number] 12:00:00 AM EDT - 08/05/2020 03:07:29 PM [facility] Outpatient Admitter: Ousmane WardReferrer: Ousmane Ward 07/31/2020 12:00:00 AM EDT Nontoxic single thyroid nodule [facility] Nontoxic single thyroid nodule Outpatient Attender: Mary Lorenzo MD [id number] 07/16/2020 04 :48:02 PM [facility] Outpatient Attender: Ousmane Ward [id number] 12:00:00 AM EST - 05/19/2020 03:41:00 PM [facility] Outpatient Attender: Shazia MAXWELL-CConsultant: Shazia valdes PA-C 05/12/2020 09:47:00 AM [facility] - 05/12/2020 09:47:00 AM [facility] Outpatient Attender: Shazia LACEYCConsultant: Shazia valdes PA-C 04/14/2020 02:45:00 PM [facility] - 04/14/2020 03:53:00 PM [facility] Patient discharged. Outpatient Attender: Shazia Arnett PA-C 03/16 01:12:00 PM [facility] - 04/06/2020 01:12:00 PM [facility] Medications Medication Brand Name Start Date Product [...] for Nausea for up to 2 doses [facility] Levothyroxine Sodium 0.175 MG Oral Table t Levothyroxine Sodium 175 MCG Oral Tablet (SYNTHROID) Levothyroxine Sodium 175 MCG Oral Tablet (SYNTHROID) 10/05/2020 12:00:00 AM EDT 175 ug Oral active Take 1 tablet by mouth Daily [facility] Calcium Carbonate 500 MG Chewable Tablet Calcium Carbonate Antacid 500 MG Oral Tablet Chewable (Tums) Calcium Carbonate Antacid 500 MG Oral Ta blet Chewable (Tums) 10/05/2020 12:00:00 AM EDT 1000 mg Oral active Chew 2 tablets by Mouth Three times daily [facility] 0.4 ML Enoxaparin sodium 100 MG/ML Prefi lled Syringe Enoxaparin Sodium 40 MG/0.4ML Subcutaneous Solution (LOVENOX) Enoxaparin Sodium 40 MG/0.4ML Subcutaneous Solution (LOVENOX) 10/05/2020 12:00:00 AM EDT 40 mg Subcutaneous active Inject 0.4 mLs into the s kin daily [facility] Ibuprofen 400 MG Oral Tablet Ibuprofen 400 MG Oral Tab let (MOTRIN) Ibuprofen 400 MG Oral Tablet (MOTRIN) 10/05/2020 12:00:00 AM EDT 400 mg Oral active Take 1 tablet by mouth every 6 (six) hours as needed for Pain [facility] Acetaminophen 325 MG Oral Tablet Acetaminophen 325 MG Oral Tablet (Tylenol) Acetaminophen 325 MG Oral Tablet (Tylenol) 10/05/2020 12:00:00 AM EDT 650 mg Oral active Take 2 tablets by mouth every 6 (six) hours as needed for Pain [facility] Docusate Sodium 100 MG Oral Capsule Docu sate Sodium 100 MG Oral Capsule (Colace) Docusate Sodium 100 MG Oral Capsule (Colace) 10/05/2020 12:00:00 AM EDT 100 mg Oral active Take 1 cap nafisa by mouth Two times daily as needed for Constipation [facility] bacitracin zinc 0.5 UNT/MG Topical Ointm ent Bacitracin 500 UNIT/GM External Ointment Bacitracin 500 UNIT/GM External Ointment 10/05/2020 12:00:00 AM EDT active Apply to surgical incisi on three times daily for one week [facility] Acetaminophen 325 MG / Hydrocodone Chelo trate 5 MG Oral Tablet HYDROcodone- Acetaminophen 5-325 MG Oral Tablet (LORTAB) HYDROcodone-Acetaminophen 5-325 MG Oral Tablet (LORTAB) 10/05/2020 12:00:00 AM EDT 1 {tbl} Oral active Take 1 tablet by mouth every 6 (six) hours as needed for Pain for up to 3 days, Max Daily Dose: 4 tablets [facility] dextrose 5 % and sodium chloride 0.45 % infusion [id number] 0 10/03/2020 09:30:00 AM EDT Intravenous completed at 50 mL/hr, Intravenous, Continuous, Starting on 10/03/20 at 0930, For 6 hours
Saline lock with good PO intake.
[facility] Medication administered onsite 0.4 ML [...] hours after epidural catheter has been removed.
[facility] Medication administered onsite Levothyroxine Sodium 0.15 MG Oral Tablet levothyroxine (SYNTHROID) tablet 150 mcg levothyroxine (SYNTHROID) tablet 150 mcg 10/03/2020 06:00:00 AM EDT 150 ug Oral active 150 mcg, O ral, Daily at 0600, First dose on 10/03/20 at 0600, For 30 days [facility] Medication administered onsite Ibuprofen 400 MG Oral Tablet ibuprofen (MOTRIN) tablet 400 mg ibuprofen (MOTRIN) tablet 400 mg 10/03/2020 04:00:00 AM EDT 400 mg Oral acti ve 400 mg, Oral, Every 6 hours, First dose on 10/03/20 at 0400, For 10 days
Take with food if possible. Alternate with tylenol if ordered.
[facility] Medication administered onsite Calcium Carbonate 500 MG Chewable Tablet calcium carbonate (TUMS) chewable tablet 1,000 mg calcium carbonate (TUMS) chewable tablet 1,000 mg 09/13 12:00:00 AM EDT 1000 mg Oral active 1,000 mg, Oral, After Meals, First dose on 10/03/20 at 0000, For 14 days [facility] Medication administered onsite Acetaminophen 32 [...] mg from all sources in 24 hours.
[facility] Medication administered onsite ondansetron (ZOFRAN-ODT) [...] 2040, For 30 days [Order 2 End] [facility] Medication administered onsite oxyCODONE (ROXICODONE) [...] Service consultation and approval.
[Order 2 End] [facility] Medication administered onsite Docusate Sodium 100 MG Oral Capsule docusate sodium (C OLACE) capsule 100 mg docusate sodium (COLACE) capsule 100 mg 10/02/2020 08:41:20 PM EDT 100 mg Oral active 100 mg, Oral, 2 Times Daily PRN, Constipation, Starting on Mon10/02/20 at 2040, For 30 days [facility] Medication administered onsite Melatonin 3 MG Oral Tablet melatonin tablet 3 mg melatonin t ablet 3 mg 10/02/2020 08:41:20 PM EDT 3 mg Oral active 3 mg, Oral, Nightly PRN, Sleep, Starting on Mon10/02/20 at 2041, For 30 days [facility] Medication administered onsite HYDROmorphone (DILAUDID) injection 0.5 mg [id number] 10/02/2020 06:33:42 PM EDT 0.5 mg Intravenous aborted 0.5 mg, Intravenous, Every 5 min PRN, Severe Pain (Pain Scale Score 7-10), Starting on Mon10/02/20 at 1833, For 4 doses, Recovery [facility] Medication administered onsite Calcium Chloride 0.0014 MEQ/ML / Potassi um Chloride 0.004 MEQ/ML / Sodium Chloride 0.103 MEQ/ML / Sodium Lactate 0.028 MEQ/ML Injectable Solution lactated ringers infusion lactated ringers infusion 10/02/2020 12:00:00 PM EDT 100 mL/h Intravenous active at 100 m L/hr, Intravenous, Continuous, Starting on Mon10/02/20 at 1200, For 30 days [facility] Medication administered onsite 12 HR [...] 3 DAYS THEN 1 TABLET TWICE DAILY. [facility] 12 HR Bupropion Hydrochloride 150 MG Extended Release Oral Tablet [Wellbutrin] Wellbutrin SR 05/12/2020 12:00:00 AM EST ORAL active [facility] ([facility]) Loratadine 10 MG Oral Tablet Loratadine 10 MG Oral Tab let (CLARITIN) Loratadine 10 MG Oral Tablet (CLARITIN) 04/20/2020 12:00:00 AM EST 10 mg Oral aborted Take [address] mouth [address] [facility] Loratadine 10 MG Oral Tablet [Claritin] Claritin 04/20/2020 12:00:0 0 AM EST ORAL active [facility] ([facility]) 24 HR venlafaxine 37.5 MG Extended Release Oral Capsule [Eff exor] Effexor XR 04/20/2020 12:00:00 AM EST ORAL completed [facility] ([facility]) Cholecalciferol 68209 UNT Oral Tablet Vitamin D3 Ultra Poten cy 04/13/2020 12:00:00 AM EST ORAL active M EDENT ([facility]) 200 ACTUAT Albuterol 0.09 MG/ACTUAT Metered Dose Inhaler [Pr oAir] Proair HFA 12/10/2019 12:00:00 AM EDT RESPIRATORY completed [facility] ([facility]) Fluoxetine 20 MG Oral Capsule [Prozac] Prozac 12/10/2019 12:00:00 AM EDT ORAL completed [facility] ([facility]) Insurance Providers Payer name Policy type / Coverage type Policy ID Covered green party ID Covered green party's relationship to andujar Policy Andujar Plan Information Medicaid P [id number] S [id number] Medicaid P [id number] S [id number] Medicaid Dental O [id number] S [id number] 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 [id number] Self [id number] [place] Commercial Insurance Co. 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 [id number] 18 [id number] OR[employer] CARE [id number] [place] [place] [facility] [facility] [place] [id number] 18 [id number] [place]ARE [place] [id number] S [id number] [place] [id number] SP [id number] MEDICAID [id number] SP [id number] [place] Medicaid/CHP/FHP Medigap Part B [id number] Self [id number] [facility] Community Plan Commercial [id number] Self [id number] Managed Care [place] P [id number] S [id number] [place] Medigap Part B [id number] Self [id number] [place] Care [place] Medicaid [id number] Self [id number] SELF PAY ONLY [id number] SP [id number] UN COMMUNITY PLAN [facility] [id number] SP [id number] [facility]) O [id number] S [id number] COMMUNITY PLAN [facility] [id number] SP [id number] Managed Care - [facility] P [id number] S [id number] D Managed Care [facility] O [id number] S [id number] Medicaid [place] 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 Diagnosis 05/12/2020 09:47:00 AM [facility] F419 Anxiety disorder, unspecified Anxiety disorder, unspec ified Diagnosis 05/12/2020 09:47:00 AM [facility] F339 Major depressive disorder, recurrent, un specified Major depressive disorder, recurrent, unspecified Diagnosis 05/12/2020 09:47:00 AM [facility] M545 Low back pain Low back pain Diagnosis 04/14/2020 02:45:00 PM [facility] Z0001 Encounter for general adult medical exam ination with abnormal findings Encounter for general adult medical examination with abnormal findings Diagnosis 04/06/2020 01:12:00 PM [facility] [id number] Neoplasm of uncertain behavior of endocr ine gland 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 Problem 04/06/2020 12:00:00 AM EST JONELLE NT ([facility]) Surgeries/Procedures Procedure Description Date Indications Data Source(s) RESPIRATORY PATHOGEN PANEL <td>RESPIRATORY PATHOGEN PANEL</td><td>Routine</td><td>10/03/2020 2:47 PM EDT</td><td></td><td> </td> 10/03/2020 02:47:00 PM [facility] COVID-19 PCR <td>COVID-19 PCR</td><td>Rou denise</td><td>10/03/2020 2:47 PM EDT</td><td></td><td> </td> 10/03/2020 02:47:00 PM [facility] BLOOD COUNT COMPLETE AUTO&AUTO DIFRNTL WBC COUNT <td>C BC AND DIFFERENTIAL</td><td>Routine</td><td>10/03/2020 2:00 PM EDT</td><td></td><td> </td> 10/03/2020 02:00:00 PM [facility] XR CHEST FRONTAL ONLY 73406 <td>XR CHEST FRONTAL ONLY 65735</td><td>Routine</td><td>10/03/2020 9:39 AM EDT</td><td></td><td> </td> 10/03/2020 09:39:38 AM [facility] CREATININE BLOOD <td>CREATININE WITH GFR</td> <td>Routine</td><td>10/03/2020 3:47 AM EDT</td><td></td><td> </td> 10/03/2020 03:47:00 AM [facility] PARATHORMONE <td>PTH, INTACT</td><td>STAT </td><td>10/02/2020 7:08 PM EDT</td><td></td><td> </td> 10/02/2020 07:08:00 PM EDT [facility] TOTAL THYROID LOBECTOMY, UNILAT W/WO ISTHMUSECTOMY <td >TOTAL THYROID LOBECTOMY, UNILAT W/WO ISTHMUSECTOMY</td><td></td><td>10/02/2020 1:52 PM EDT</td><td> THYROID MASS</td><td></td> 10/02/2020 01:52:00 PM EDT - 10/02/2020 07:16:00 PM EDT [facility] GONADOTROPIN CHORIONIC QUANTITATIVE <td>POCT ISTAT BHCG</td><td>Routine</td><td>10/02/2020 12:17 PM EDT</td><td></td><td> </td> 10/02/2020 12:17:00 PM [facility] SURGERY CASE REQUEST OUTSIDE FACILITY ONLY <td>SURGERY CASE REQUEST OUTSIDE FACILITY ONLY</td><td>Routine</td><td>08/05/2020 3:17 PM EDT</td><td> Thyroid mass</td><td></td> 08/05/2020 03:17:[address] [facility] Thyroid mass Results ID Date Data Source [id number] 03/05/2021 05:17:33 PM EDT [facility] Name Value Range Interpretation Code Description Data Rima rce(s) Supporting Document(s) Progress Note [facility] BVXMDm8jHnYKLsEx09/YYKdnUZXrm8FaMEbjFAi9BTmxBFDvH5IcAVG9eJ1yARE2UPzSBeGwNlJuAOCg lbm [file] AgICAgICAgICAgICAgICAgICAgICAgICAgICAgICAgICAgICAgICAgICAgICAgICAgICAgICAgICAgIC EkFQEuTEElDLTvUNNoYTDrWUEzPI7XXVWcDTEmYYTl ICAgICAgICAgICAgICAgICAgICAgICAgICAgICAgICAgICAgICAgICAgICAgICAgICAgICAgICAgICAg SLPiQJCjTMLkMGNuOVBzZZMlQLQoEDAsERKaKKAxTD2BOTUbMIOmBRRjVTUhCXHwLPLjZBDbNQNdSQRl ICAgICAgICAgICAgICAgICAgICAgICAgICAgICAgIC LgZKIsRZVxCRKjRFOqGOTxGHGlNPXrWBGoERGnDTBaIYLhIONxTTLdZK5FLDLrHSXiYDMoCHKcBVMyNR AgICAgICAgICAgICAgICAgICAgICAgICAgICAgICAgICAgICAgICAgICAgICAgICAgICAgICAgICAgIC JkXRAyMELoWTZjUABbBCTwYZFuYEYiGI4QWESbBWXu ICAgICAgICAgICAgICAgICAgICAgICAgICAgICAgICAgICAgICAgICAgICAgICAgICAgICAgICAgICAg TGGiKHOiWNDsNKEbCWGoSTZlZQIsHPJsCNMgVOGqPZAcOM2SMPUvQMTcZMZaRBHnBXDuZFBoJETlABVu ICAgICAgICAgICAgICAgICAgICAgICAgICAgICAgIC YzYXDiTUHtVUYwNHQrAJCsWRWjSTEhZTZuGXMrUDKbUYXpQVDvSUSsOZXtYX7TZAWsSBXdXSXwYENuYM AgICAgICAgICAgICAgICAgICAgICAgICAgICAgICAgICAgICAgICAgICAgICAgICAgICAgICAgICAgIC IsSQMmRIZoVCVlVOYpFLYwXJGfMLVpSBClXG8DEOJd ICAgICAgICAgICAgICAgICAgICAgICAgICAgICAgICAgICAgICAgICAgICAgICAgICAgICAgICAgICAg UUDlYCDnERSyZICpDJBfFZBvMZBdZMSzHFSlZRAgXFYzDGJjFG1WWCGgMZQyGSMaSLPkPHGtZSMlOGZh ICAgICAgICAgICAgICAgICAgICAgICAgICAgICAgIC CwMEPeIXAnEOReLAItYEIzWOLvXBSyUIUiDLHjVBUvIWSjFXSfJHXdIYXxUEHjKN7TIEEdXJOnULVgEF AgICAgICAgICAgICAgICAgICAgICAgICAgICAgICAgICAgICAgICAgICAgICAgICAgICAgICAgICAgIC UpXXJuNJSfHAZsFLTjAHCkVTDyYTYjURFkMPErPZ3L BW36qPGhn2U6YRJtAA1dlrt/Yg6EBKxqwdHxdQAsSZ4JDtJnWS8kbt3UVxTnKI3mot8GGBoMBxZqT8A9 vODfLPNeEBOFSyRxD46tJPijLw38WHuvKVOsGkKfPSk0Xx3QDmJmF9gfBHAmLnE1MLKeQcR1YSVrNqQ8 RKQkImKzJAItCDBcTLWyHUVRJXZ8OBOqZiOpUpTeYI QlNSaeVPQNOQ0YSfKtJ8NhcN60KVhZZi9+ATxyzkAbAjzVEmL1QGJih3JkYQu9VX3ILAVjKhnbe0WpCD MgRXJTLOxlFX0YPLO2KLChIYQjPq9FWAVrF720yeThBE3BBf5GIlAkPX4vnh6VPXNmFXPiCfqKWzh1BS trRT3HjNGaXYwSns8ibaDujeDSl8VmfbNriEGKPYHg IQ6qBQ0qlUwpLPTGYvSULGD4JZQfPqCsByShFaWgTEK6FAFaKL9iGGhdDB8ULSJ9KPgoRMQmSHEiA9rY CzUfRQGhMOQwqMhoYF5BAgImI2FqqoFfpOKxJWDgFVZEFp0+SNsdhiRdWnqMDsFdNTRrx4JrOVu5RI5G PBXiKOkvRA5RYUKcpH8cZYzdGY1IEqKjFqOxSTRTMl FzE59wzHKiIKc8Q1FpUyXsIKMjAwjbSZYmOKddLnSjQUXsRiDpWKtpYJ2+ID4+QAcbLB6ZAMdiynHsNU LlZm1GIJXrUGBeGU5jDZXtQXYzH8Y9hWxwGGKMJdWcC1jhgmmwTQ2sRPRhN328kAkmplQbRLO1VBIeHf 5XHISyHRP9TUYymPDsNiblGIHWGJdhRD1NlUHwTGH4 xN5mEMhzLQVyEKMbV9zVAsQibItwZC81kNujntPelAUzMLy+Oq5IKP9oj0KgUJx5oaWuMUciUULpJJmp UBFtMSCkTZEuSPD0UGP2ZJVWWhNbAXSkPSNfLResZGXdTNJvnn5JMQDiPUF7SAEfZHEsZTMgBYFiHGkg KWUoBOPyKuhnOBPmTHUeJN3XIvHnKMWcHGQaTFvnTF SgGJDpkq7RVEOyAVFaBaT1CTRsHZGcCDAlIRtdQGBlXNBiOWEkNVKdJTJxZP5YDfWsZZSuHKC1IWJtOM PqTBDxjr8AQJQlPEVePsL1JHVmIRKxTNSvCFkhXTXfYCS0FrB7FEVoDBWvWU4FJdVqTSYfSLk0UBvzKT CoBAJwib2LRIYeOIJaZiXhXUNkFVSmONWfWEicGCEr QIJdKOG2NKYwJXTcRA3HVqZrDKQrRNHxXZzqUNMzHHXoyt6LYAKvINWuZMEwVcUvPAXbJNGdBCzrGPRg OUE5DLm4UBZhFMGcSP0HGgChFXNqVWpbUCMsNPGtEXJksn8WAFDcTXKwDMAtTNPpWXFkIUGtQEpyOCMj WHGkVLV8YOYuBXMgPD8QXuVdITQkCmF8JfcmAMCoXA Mwet6ADJSgFTYcQlp6PiEhYNOyVGNvPVnzWSHjRXD9PZRoDRXyFVPfZT3KYbThFXGsMiClNTDeHHGcUK Qygt0OHKJgRTTnGXC1RuLvYJIbVKRzRSokYTUdLKH6BfMbJOMzYNVfZY3WInGoYXFmPwN0KWNkDSHyRP Tcez5KBLYvDMElNnPoFxCxHGQqNJZiVKcoRAVbPSR5 AXMwSVPkLJVxCW4AMiVgISVeZcwdTKiuEHVfOYRvtz3ACZXgLQQdZGS6EqErIEMnXOQpGXkcBKLiBKV0 FAM3ALWhXYMvLZ4IElNeREEyJut7KVDpHARnUWXxxq3ENCZkJCIpYMsdPgZwCWSyGZVyFEgvASNjMACn GFG6VMUoJKDeJA6YXaTwJFKoXJMmYYStEZXuYDIead 9LFTEuKHT3UWE0YhKnJXVnIKCyYGpkVMUdRLBiTXU8ZDEgAKAdER9JZnZwFLDvAZS7OIxmKLGxXNGdex 9NJGMzHJS7CiSfWBZzOQBvMLCzJUrzJGKwYAZpAPS7WOPbDXRrMQ1TVkVjPSHmDQJ3BChaVKKaYITque 4JLVJjWBV4ZhkxYBIqDAOgPBYnGLa6ftZlpAZkLAm1 GU3RU8PkqxDqSRWVNe9Im038NPCpYFVvYk1LK7nnUs4sSYPhFYQNRk8AERw7JyC0BEV7EVD1TDU9EuY0 ZjJkYjMxODIyNzIwODMzNjk+QEvbYcTiJIT5AigxKMMrLikaThWhHhM4PeW0LmX9ThP6XL9mIBBRGo6+ CCvrxLUucFynKRJTBiDtUPbhBDzeDJCIJu7U ID Date Data Source [id number] 03/05/2021 10:13:14 AM [facility] Value Range Interpretation Code Description Data Rima rce(s) Supporting Document(s) Thyroglobulin [Mass/volume] in Serum or Plasma 12.9 ng/mL <35 [facility] (NOTE)Note: High Biotin intake may cause falsely low results.Interpretation: If Thyroglobulin Antibody results ">2.3 IU/mL",Thyroglobulin testing via LC-MS/MS should be ordered, which is a send out test ([facility] Test Code:[id number]).Test performed on [employer] Access [employer] using immunoenzymatic immunoassay technology. ID Date Data Source [id number] 03/05/2021 10:13:14 AM [facility] Name Value Range Interpretation Code Description Data Rima rce(s) Supporting Document(s) Thyroglobulin Ab [Units/volume] in Serum or Plasma <2.3 [facility] (NOTE)Note: High Biotin intake may cause falsely low results.Test performed on [employer] Access [employer] using immunoenzymaticimmunoassay technology. ID Date Data Source [id number] 03/04/2021 06:19:16 PM EDT [facility] Name Value Range Interpretation Code Description Data Rima rce(s) Supporting Document(s) Thyroxine (T4) free [Mass/volume] in Serum or Plasma 1.52 ng/dL 0.93- 1.70 [facility] ID Date Data Source [id number] 03/04/2021 06:19:16 PM EDT [facility] Name Value Range Interpretation Code Description Data Rima rce(s) Supporting Document(s) Thyrotropin [Units/volume] in Serum or Plasma 0.270-4.200 L [facility] ID Date Data Source [id number] 02/04/2021 10:15:00 PM EDT [facility] Name Value Range Interpretation Code Description Data Rima rce(s) Supporting Document(s) SARS-CoV-2 RNA Resp Ql AMINA+probe NOT DETECTED [facility] This lab was ordered by MAILE calixto and reported by MAILE Crews. ID Date Data Source [id number] 11/03/2020 07:06:19 PM EDT [facility] [place] [facility] Name Value Range Interpretation Code Description Data Rima rce(s) Supporting Document(s) TSH,ULTRASENSITIVE @ 0.006 mIU/L (0.360-4.170) L [facility] [place] [facility] ID Date Data Source [id number] 11/03/2020 02:01:19 PM EDT [facility] Name Value Range Interpretation Code Description Data Rima rce(s) Supporting Document(s) Progress Note [facility] [id number]/IGQqgNGZrv6RsAWupJXq2TEvhIELnR4FoILT0mS8jDIR2WJzKMyTvVyDfGfGo [facility] [file] 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+[id number]+zXQR6xBeZ0sICy+[id number] [file] ICAgICAgICAgICAgICAgICAgICAgICAgICAgICAgICAgICAgICAgICAgICAgICAgDQogICAgICAgICAg ICAgICAgICAgICAgICAgICAgICAgICAgICAgICAgIC AgICAgICAgICAgICAgICAgICAgICAgICAgICAgICAgICAgICAgICAgICAgICAgICAgICAgICAgICAgDQ ogICAgICAgICAgICAgICAgICAgICAgICAgICAgICAgICAgICAgICAgICAgICAgICAgICAgICAgICAgIC AgICAgICAgICAgICAgICAgICAgICAgICAgICAgICAg ICAgICAgICAgDQogICAgICAgICAgICAgICAgICAgICAgICAgICAgICAgICAgICAgICAgICAgICAgICAg ICAgICAgICAgICAgICAgICAgICAgICAgICAgICAgICAgICAgICAgICAgICAgICAgICAgDQogICAgICAg ICAgICAgICAgICAgICAgICAgICAgICAgICAgICAgIC AgICAgICAgICAgICAgICAgICAgICAgICAgICAgICAgICAgICAgICAgICAgICAgICAgICAgICAgICAgIC AgDQogICAgICAgICAgICAgICAgICAgICAgICAgICAgICAgICAgICAgICAgICAgICAgICAgICAgICAgIC AgICAgICAgICAgICAgICAgICAgICAgICAgICAgICAg ICAgICAgICAgICAgDQogICAgICAgICAgICAgICAgICAgICAgICAgICAgICAgICAgICAgICAgICAgICAg ICAgICAgICAgICAgICAgICAgICAgICAgICAgICAgICAgICAgICAgICAgICAgICAgICAgICAgDQogICAg ICAgICAgICAgICAgICAgICAgICAgICAgICAgICAgIC AgICAgICAgICAgICAgICAgICAgICAgICAgICAgICAgICAgICAgICAgICAgICAgICAgICAgICAgICAgIC AgICAgDQogICAgICAgICAgICAgICAgICAgICAgICAgICAgICAgICAgICAgICAgICAgICAgICAgICAgIC AgICAgICAgICAgICAgICAgICAgICAgICAgICAgICAg ICAgICAgICAgICAgICAgDQogICAgICAgICAgICAgICAgICAgICAgICAgICAgICAgICAgICAgICAgICAg ICAgICAgICAgICAgICAgICAgICAgICAgICAgICAgICAgICAgICAgICAgICAgICAgICAgICAgICAgDQo8 J2zzPVXsSBPsWF8oIUj7Wa0+WQpNXaMhOVQ0jyIfyR 3GWF5di7WnRZhbFKTqh6QlDJn3PM0PHRBaDRnuLO8MXXgwph7REAIyEFEpjWDAi6rwNtXyWQG4IPZeRg onPA5VVNNlU0dttvYaTMBzTQHEBV7IMrOxL5NkwY46UOSBKa5+ZLydvfPtChsVDvJaIWYlt7EzKWw5FM 7TDTXeAvygk0XuWcKiILHRBZmmRX7NPVY5TZCiUCVt Cq5MNPJeM482soJfXG7ILl9SFhYiVX4ukd6BSfDdCOXeMwcDKmw6TOioNF0ObXMfRSjLuw8ikkBqnhEB b1JdloTnoUKLCNQmCYCpLFJduy85wswsPOMSJ6pyNMNzUu5gQl3pPYFcRVHvGzYoQZWSMA7MVICrGAZt mBYvUHObGPBRQZ5VCAvlTNS4PMYwtsEslYDnRTkvSN 9QYXJlbnQgMjIgMCBSDQo+Ba5NIS5rv8NuAQrvIULsJX6qhe5LFSkDEiTgD9B3wBYwM4Z3XPpsXc3LKR MuCXAhIwFdZPKEZCfhBI0HMR9zqeC6AY7FaGOjERPgRTPtvWEiMBm5I49dzEJnRPgxJD1YLRI+David+Pg 5EIQXbCUQlYNWrDzMyHSVDYiIhJ3ByF1JHl8ZhO5Ol VK11lDrtuaVuKWqkFR9GKZ8vIZChIQKUZY6ZcQIkyU2lmiUrIeJnVVGZPhIzF17aaRUoWVDcUQRqSAJt Or8JHNXqD8OhgzPkaLbdqzHvZEFdUDSVYA2VDEzbnuEsrBIkhRxfKI37oVddFW0XJz3QYjUcLU0epo6C xWIxWm5CFEEfVG1ANNWdWYNtWYDeDDL4PZXnYqGmUM hfMMKkUOFpSPU6TNQiVELeTT4JKaCpXRItCJwxWrLdZUVcJUMcmb9EDSBsNDToNDs6CRSaLQLvMICjVW cyOAErHRHnFXU0HTBuFJLzPL0ZWyKcRHNbKMS3LIAiKGVhKKKthy4XWGSzVDXxQnm0IXSnZWZdPUJfGS tjXLVhFOMiQsE2YJHxFWJbGN1VLqErGGSbRZX8MUIh CMIePIUbot9IDCVkCREsHPK0QBPiTTRlHCJaHKpgWAJbNOB9OSOxUOXhCHErZL7KPtVdDRZeWWRcZAIu OLQyKCChpg6KRCYfXPEcZFSdETDxJQCoQNFjXLvzTRPiIUQ4Zuk9TEEtDRYqWO9DJwKjHCMjDHkzSJDz TZVtEJPbgh3XBKFaLMJyMqPqGTIoTJUcGTGlDWgyDJ MnMZH4XNXgFLHjPCJvHL2LDcHxZHPqTZb8AZhzKQAcHIXkzx5RBYAnGCDdWFM1VLYjRFGvMFQtUGbwQY ViIOZ4VOGxVAZeYWUvHS3VHcAyWLJpHWedVEmtOUNqXRJllh6RHPMzDOBgJLCcSLKjOXOiEBUkXXydJX AkEVJrERLjMSVhIWTmJY1XPnZaFUDtAhW4PdIgREWf JJTljr8NSPHrVQPaBVJ8TrFrXEKcIQToEKr3llQflREqFHy6CE2SS7JizgIrUdRLEz9Vx504LEA3JGTo Mk6GL8gmFh0hVTMlMFZYQp5CZLr6LPG8UjStFIBsMLjuNsDmDCRmKPUbNazcT8VlA8F7HJr+IDxhZDhi LDBeTSH7PBRgDoBzSxH3GCCtIWUpBMD8ZawtVt4y XSANCj4+RPnegNEitJzgWFHCUyZqZwPzRLgwJZWHKb6A ID Date Data Source [id number] 10/05/2020 09:33:11 PM EDT [facility] Name Value Range Interpretation Code Description Data Rima rce(s) Supporting Document(s) Operative Note [facility] ROLRMw7jVhQDKtAa23/IEXfrXECon4PyPBazRBq3PEtsLNTrA4RcHPA4vT2vBJG8OSiPBjPaFqPcCHD9 lbm [file] 2CSbL0XeBQToIsOI4TZMm= ID Date Data Source [id number] 10/05/2020 10:29:42 AM EDT [facility] Name Value Range Interpretation Code Description Data Rima rce(s) Supporting Document(s) Progress Note [facility] JAVNVy4cUiUSZaXt15/NNRhvYNWzd8IvJXnkXEz2HMjfUNZvK4JjCLM6uJ2xRIC9QVmGKxQkLyIzZJH1 lbm [file] X8TEY3ROHyIAYmMwHkJUW6RIboJWa+IB6gAKd+Kw7Sg8NhmrI6xjFvWWq6SZd8NYeuPKWYDq8M ID Date Data Source [id number] 10/05/2020 07:09:38 AM EDT [facility] Name Value Range Interpretation Code Description Data Rima rce(s) Supporting Document(s) Progress Note [facility] ZZMXGe6wPeDQIqZg80/KCNquBIBfq6BjCKekXVq2PCdpJJZzE6RpWBN6fU1yLIX5GWnCWxNqUdBgQMA5 lbm [file] ICAgICAgICAgICAgICAgICAgICAgICAgICAgICAgICAgICAgICAgICAgICAgICAgICAgICAgICAgICAg AOKdWBQfTIThMBXcGGMdTJVmJRRiLELsZF8EDOAlCY AgICAgICAgICAgICAgICAgICAgICAgICAgICAgICAgICAgICAgICAgICAgICAgICAgICAgICAgICAgIC TtATLrJYVfNHQdRXLsJVSqSLXoIGAjJBZaVPQsHWYmTYNuFR9UNRAjKAZePUPiSPRfKVUdGMLoTUGvUL AgICAgICAgICAgICAgICAgICAgICAgICAgICAgICAg GPKkMGKhAFJhDERbVQUvHBHzUGMyPFFjHSNxTEZdVMEfCPQdBRFvFKZuGQHlUE9OJBKxIXCpANAqJOLx ICAgICAgICAgICAgICAgICAgICAgICAgICAgICAgICAgICAgICAgICAgICAgICAgICAgICAgICAgICAg GMEySXOzDJYnKZYaNRYgQGFdJFZbNDYqWCIlSU8UAT AgICAgICAgICAgICAgICAgICAgICAgICAgICAgICAgICAgICAgICAgICAgICAgICAgICAgICAgICAgIC CmQBLsHLUxLGBkBDLpTSLgQCYzXFCtSKHjIJCvVGGfKOIeAZDpYQ2QEWDqTVFaUAFsJIWeIMFdLEOcRF AgICAgICAgICAgICAgICAgICAgICAgICAgICAgICAg DQUkIYOuFRWaTMXiHULsTDRnMQMhFXHvWXEtDVNkEJJmKWLlWLAgMIGwHDCvSJRyVE1TCFSdVNEuRVZa ICAgICAgICAgICAgICAgICAgICAgICAgICAgICAgICAgICAgICAgICAgICAgICAgICAgICAgICAgICAg ICAgICAgICAgICAgICAgICAgICAgICAgICAgICAgIA 0KICAgICAgICAgICAgICAgICAgICAgICAgICAgICAgICAgICAgICAgICAgICAgICAgICAgICAgICAgIC PpYOGuGGSdQZEhCAKwZQFtYILaZVBbQRXqDXHcGMKrJNLaPYIcTXByNH3DBXPqRHUnMZXhCBJiIBXlBJ AgICAgICAgICAgICAgICAgICAgICAgICAgICAgICAg WWAqNTEtZJDkEPOaPCHaUWNnKCZjFAPwWJObFMXlOVLiPVGfPRDbYLKaILWgIFDeKQNsVI1IWJAvOGPz ICAgICAgICAgICAgICAgICAgICAgICAgICAgICAgICAgICAgICAgICAgICAgICAgICAgICAgICAgICAg ICAgICAgICAgICAgICAgICAgICAgICAgICAgICAgIC NqZM0PXK93xYFri3U8CEHrTI0blyy/Ei7HHLwwwlDroEVqIM0WRmExRU1iim3AKpHjJJ6vyx5QSOhIEv ZwD1N6yYEnFUAmKUIHAtBcK17yBUwaQc55NZeoKOFwEfWmKOm9Ql4NThOeM4biZFShIjV7GLFaAkQ9WQ WxSiZ6IUOiQpRkQZgnTL5Ki1BaqKKiDEb+Tx7GLQ6q u7DeYYqeEUUzXK7vpv5KRHdLUrYnV9IlgrW4ROL8XLPdZp7OJOGmIQVqzDZtUHNsBXDOJjLuA6BfsG03 IDENCj4+VCmpizQdKgeBQaO5YBIag0QmHEk6EH5YUGYlQDb3dFWeTDRdJ5Vao6LfCk67OESoHmoeECsk tRReiXJLGI65riJahFcrBNUgPWYzOV5mZD5rVYPzRU U5IdRwMXTBHP2KITYtCIHfgYOtWVTjXDQRJB4FWNpmJJB6TDEnwaZxzWWaYQqeOO9WQXMpejMqOxDsDE BSDQo+Al3KIK0re4DeHQheHjFvJB7tbb1ERJiMGhXyL1I7gKUlV1P1JHcfQo1GBXQmNLXlHrMxQNEIWA pvMN2DGV9cjnZ1RX5SpWCtHVZhHLEhoEXyQCk5I86v yZYaGBnpTA7BOMV+David+Xw1UKTVaXFUuQOWjIwLsSKPQIwKaC9EwW1APm7VlR7IvYW09pEogduXfBFul OL3GTK3tJWQaWOTNNU4NlNTkzB2ikiMiDXQfHRUSBjRyJ83ydZSzLYNwWGIlEELaZw8RWGFiW6AvhhWk mRgbruXiHZCdZXWARI9PCVflogNygRAgdSvqIW15mK cnQL2IVn2FMnLgEP4kny7NuEBpWr9XYHTaEe9PSSBlFUHvFWYmBAP1XLHtByUjMWzzYILaGLRtZZV0AJ GyCMAhCK8IDbFkIVZcHMH0QPTiLKBpYKDovi3FJSRgWAJcVNk0PeVpTGOyNLScTNvqNHUlVCYtGDT2IH IbDQIhIZ7BAlOeUQUwMXH2KlwfGTJuRHTzii7IOQAk KWEnMfe5XIHyIQJdFNOdRMdrPOJoQUJ4GuLkJVIgBYVdWC1PJpYaFZBnYZP0YJHaLGNoWQLilm6IABYm PIFpXqT6AEXaPXDvQFJzDRntEQWzNHT0IJF2SBAwQQHdLJ2UKnTyPIXeKAs8VLGwPMSnBFNliz0VVFSq NZIbRShmAjFhDBMuNDTcYVadFDXuMHI5AEa4RJMePE ZgQO2WXmNvATMmUBz6VQYcSYDeADLzgp9QKBLuHFGsUNI9LiOqCYVsWBYyJJqrZJDfRYSfOlP8NLDdVF DiHB0YKuZhDSMqSJWrVXUrMDDtEASfiz9BUAYeAVOwOGNiIlIrNCUeTYHjWTicKTQuIKXjGmF5MPJwGE FsBM1GHqDbEIXaYXA8JgptHZNvWIKvun3ZTSZuDZNs Tko6HAWyGJHtWTHqAZcnKZDsIOFsOQGxXVBzBZGoAZ2IFuCcHNYjIUI0GDTvLLDtROBnso4AFZJgCRGv CPx2PgSfFSCuHBHjMPtvCPHhVIT9XYLjIGGtQJKtTA1SNuDpTRSrYDSfVhRlDXGwUTBxtz6ShBQuzQcc sc7NGIzZAr3VaUrtTEI7ELfrHi3xoEIkZsEzNXTPNx 1QwiTtPMYvQCXODNopNIAcIMCcBwraCdL0TGCqIRU2SLN2HfZwNBTeQFScUEG8K3AzItZ7AfWaCIGbHI f1ESY9TCh8MondJEY3X6X3VtQ8HYOjMhM+LX8cLOb+Od3Rp7CpgkV2rjQhOUyhYKCmHY3VAVVKT8GREm == ID Date Data Source [id number] 10/04/2020 08:59:55 AM EDT [facility] Name Value Range Interpretation Code Description Data Rima rce(s) Supporting Document(s) Progress Note [facility] SCKCJc6zFuTEApAa80/MABtqKRYko9UvRBefHKz9KFknIONcH5FgXXB4hE9pKDO7EDiCBhBqYgRoMUQa lbm [file] XSANCj4+BIgsbSTisJikWNVKEeY6OOW5QRtvIQZNRe2A ID Date Data Source [id number] 10/03/2020 04:08:51 PM EDT [facility] Name Value Range Interpretation Code Description Data Rima rce(s) Supporting Document(s) Consultation [facility] RXZSVy8kFjLEKuQm86/PMFlsCEUno2QrAVrmXHu8XOqfQLUzN3CdCPT9pC4bGVU4HDqENoMmLwAqRLZs lbm [file] AgICAgICAgICAgICAgICAgICAgICAgICAgICAgICAg IVRlAKPaRSYdNUXiSVLzAPFqZXYqZMYoZBToAOTpDMDtFXSlUQYuAOHvDR4HWLRuGHMtQJUnMWXvJEJo ICAgICAgICAgICAgICAgICAgICAgICAgICAgICAgICAgICAgICAgICAgICAgICAgICAgICAgICAgICAg IERsJHSyZLAiAODhUXCnOLRoNUDaLHUyGW8EOBNwPQ AgICAgICAgICAgICAgICAgICAgICAgICAgICAgICAgICAgICAgICAgICAgICAgICAgICAgICAgICAgIC CjZIZvSUZvHPXsKFQbXGYrPYFoVUPzGDQlKCBwMNPjAPYiZL3LLVIfIOCsYHOaAWUoLJNdYXAfRAXsWL AgICAgICAgICAgICAgICAgICAgICAgICAgICAgICAg USFuMYRcOUUgHNTuZBXsTQQjPEFkMIUfHANoGIObDZKyKKPfSWVkSPZpLMUlQF1VZDPxVYWbARTdTQSu ICAgICAgICAgICAgICAgICAgICAgICAgICAgICAgICAgICAgICAgICAgICAgICAgICAgICAgICAgICAg QKIoTOEvRBBxWLXvZPCvGZDqVOCnNOIiIJThSJ7BLP AgICAgICAgICAgICAgICAgICAgICAgICAgICAgICAgICAgICAgICAgICAgICAgICAgICAgICAgICAgIC AkWBVhYWTnKITkIAZmWDPrAWDrQCLaNJHhMUZoLXQxCABtTTKnUU4ZZLKiZCAlOYIvPYSbHUCsDGKjFC AgICAgICAgICAgICAgICAgICAgICAgICAgICAgICAg RFIyFRQyHPGyYPVaSWLtXSRsHXKbLWNqSWLtABIlVTFaZYXzQVEzPRDkCMZcOBLzHK0XSFDxLIRlKNLu ICAgICAgICAgICAgICAgICAgICAgICAgICAgICAgICAgICAgICAgICAgICAgICAgICAgICAgICAgICAg ICAgICAgICAgICAgICAgICAgICAgICAgICAgICAgIA 0KICAgICAgICAgICAgICAgICAgICAgICAgICAgICAgICAgICAgICAgICAgICAgICAgICAgICAgICAgIC OsXSSsJILaYUIoTROfXEAoOYOaCUYhPNCuBMLfQBCoXIToNEGvSHHmQV5VPTPkLTOpCONiNTQoVJLnVZ AgICAgICAgICAgICAgICAgICAgICAgICAgICAgICAg TWLnMKQtVZNnHGKgDBSvQYKiRWVbPRSqNQRwKTGpBLWdNXLyMWWvRIQzMJMgQUBpDECbNI0YTK08kUZn l5S6FKXhMP0inlz/Jd0EGFoviiUqaHUjPC8VQoZhZZ2kbz4PWiNnSF8mba3UZDjFYvRiX9E6rQVlOUBy LVGKAjAfM73sIWjaUg69XRdkQCBjWbYlKPd2Pb1QWz CsZ7irIDYvSjY1ILGoHoT2ZKZrWbC6DUSfJvEeQEEnAQJfPO1ALMMlU856toHaCB4CGo0VJyBlIR0hfi 8TYvYzVHXlUfuQGsk5JOzmRA4SbMPylAEhLzGjVNELZrXqE1ato3NmZqRuEVAECYigBI3Cb6HaxPFvKP o+Ch2BHL7de0OqCLqnScYyAN5qhj9QQLjQEbCgQ2Vr jZpcKSJryzT8tSUzBKG1WP1pL1ehWMswOBEUcHajCXGCCQPdhSY5QhCmWvWnDoKkUTW6EXYzSU3aLBso GE3LYMN4XRzoEPRlAMNpF0uANyXkLIXdMtWvlBxjBM3MCqXpG7TajgVxnTFkJPNaZQIHIy6+DQplbmRv KmqZPaMbYAXsn8MyLAj4TM8AEXOcVCmsVS0YWRSwlN 4sIUgrAD3GQgQjOCAgARBJNoDbM35ygTHdGTg5I7LvWcDmQOKrLyjqOMWaIJaxFoStGPEcZtDmIRitMP 4+ID4+AVtbMZ4OECibglRzSUTmIi7RCJKkMLIzMG2yRGJsVUBhX7Z5yCdjTSSCVhHyT5zaxomtEE1gKQ DxR885zLnqqoJwKBOjJVFjSn6ATLIhZPL3SDXbfVYa KaUiFRSJCShpLX2AyLPuVBX2cF9kPIokGLJmHUYxU3qOAyUcuTjeMK60yIyppsGffYVmSWj+Si9SDE4k e9ZlTNb0oiToAFyhXQP4TAfiFQZxTHWtGPRyIUX0BIP6YCVUNtXdOWJrVKTrVPqaONQkKIOgai9CAYJr NPTnNNO1GWYyMIEjQFLtMHkjHISsWOZaDUUdFJWvZX UjOD4OVzDeFHBfGHXdATuiVIPqGZCslb5UAPTmABRkSrA0CxGpHXFfCNNjTHeuCZUqASAzDDP4WHOnYK ItNK0RYxPeXDEwGKF1OuWaEXQgHXAvpc2RIWQuLYRbSwqcWJIdQLYgNNWoQLncHDSjUCU7VIF9TKQfEV PuDN1LSiHlDHTfSLFrDhYaZLMrCCMhjf4WWIGaTDXi HJI9VvByJFArMEIzVInnVRZyOFCoRSunVUJlELYqXX6BQgEuUOWoZSF1AGJmSNExEEJclf9FNRRdAFKv Ink0IQRoZHNxRJMiFSlfNDEsUWJhZSQjOKTyIKRqJE4FViYwCKYtBDQ1MEDvDSWtIBMaeb6JJKKdRHXf HDP5CIToWTXzZNFbQAsySSYrKWQ0EyxrCZSzVJEeON 2NQvDaJOHbYILpPPOyBKZgKVShvh8ATNYaWPEwBTPrRTNxMVDdQHZiVEjlGULlXHN7IaIfIAUyCBPxHX 4VWpAeRYTrVnwcBOjsUQTmRJDpyo3JIZYcRERpHmGmZXVeNKBtQBEuJNxmGNOlOMG2FVV9XJAfJODfOB 3WUoAzDGFaJuw6VlBgDIQzEMWzqg3UIOTsFULeJipf ZJGrYMCbWZExLYqpJXVfQUO8UYCcSOLqMEWwOA9CRyZjREZgCidhNRFaPPBcPGWmpi7NJUOxEYCgQRXd JNShJZXzGUCaFOflKYRzHOQ9MlRcJIHbPBRfGV2URlNrSAJkAgKnUIavRVHpSZQerj1HPAWrJZQoLYG6 OHYnVXKhZTZrWKbbQKGkJLOvLcIfAIKaYROvSU9SBq KvLNuqUELFMrm2UFehJ6o6YGFlSQ9LD9Mvu8AjTrEbVUDLKWsbQV2nskDuGRYpKk4SN8mOTmvnOpN5Pq QfNdChCyYdGWQ6ALVbDWU7XBrrDYMiXrNaJG3lPZMtFFAfQdN2TgE6YZP9NQW7MITxNImdSOL4XwWyE5 Z2OfLuHK3FEb6WAgN6ANS4wABvSn3ACwH6BxtUKpPdTA4HOEr= ID Date Data Source [id number] 10/03/2020 02:47:00 PM EDT [facility] Name Value Range Interpretation Code Description Data Rima rce(s) Supporting Document(s) SARS-CoV-2 RNA 2019 nCoV Real-Time RT-PCR: NOT DETECTED [facility] This lab was ordered by [facility] and reported by [facility]. 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 [facility] Patient has symptoms related to condition [facility] When did you start to experience these symptoms [Date and time] [Phen X] [facility] Patient was hospitalized because of this condition [facility] patient was admitted to ICU for [facility] Patient resides in a congregate care setting [facility] status [facility] ID Date Data Source [id number] 10/03/2020 04:16:39 PM EDT [facility] Service Cmnt XXX-Imp : NoneRespiratory P CR Panel : PCR ResultsMicroorganism XXX Cult : See Labs Tab for 2019 nCoV RT-PCR resultsHAdV DNA QI AMINA+non-probe : Not DetectedHCoV [id number] Nph QI AMINA+non-probe : Not DetectedHCoV [id number] Nph QI AMINA+non-probe : Not [id number] RNA Nph QI AMINA+non-probe : Not [id number] RNA Upper resp QI AMINA+probe : Not [...] DNA Nph Q AMINA+non-probe : Not DetectedB [id number] DNA Nph AMINA+non-probe : Not Detected Name Value Range Interpretation Code Description Data Rima rce(s) Supporting Document(s) ID Date Data Source [id number] 10/03/2020 02:17:33 PM T [facility] Name Value Range Interpretation Code Description Data Rima rce(s) Supporting Document(s) Leukocytes [#/volume] in Blood by Automated count 10.9 10*3/uL 4-10 H [facility] Erythrocytes [#/volume] in Blood by Automated count 4.17 10*6/uL 4.1- 5.3 [facility] Hemoglobin [Mass/volume] in Blood 12.5 g/dL 11.5-15.5 [facility] Hematocrit [Volume Fraction] of Blood by Automated count 37.3 % 3 6-45 [facility] Erythrocyte mean corpuscular volume [Entitic volume] by Auto mated count 89.5 fL 80-96 [facility] Erythrocyte mean corpuscular hemoglobin [Entitic mass] by Automated count 29.9 pg 27-33 [facility] Erythrocyte mean corpuscular hemoglobin concentration [Mass/volume] [facility] 33[facility]4 [facility] width [Ratio] by Automated count 13.0 % 11.5-14.5 [facility] Platelets [#/volume] in Blood by Automated count 273 10*3/uL 150-400 [facility] Differential cell count method - Blood [facility] Neutrophils/100 leukocytes in Blood by Automated count 77 % [facility] Lymphocytes/100 leukocytes in Blood by Automated count 17 % [facility] Monocytes/100 leukocytes in Blood by Automated count 6 % [facility] Eosinophils/100 leukocytes in Blood by Automated count 0 % [facility] Basophils/100 leukocytes in Blood by Automated count 0 % [facility] Neutrophils [#/volume] in Blood by Automated count 8.39 10*3/uL 1.8-7 .0 H [facility] Lymphocytes [#/volume] in Blood by Automated count 1.80 10*3/uL 1.2-4 .0 [facility] Monocytes [#/volume] in Blood by Automated count 0.68 10*3/uL 0-0.8 [facility] Eosinophils [#/volume] in Blood by Automated count 0.01 10*3/uL 0-0.5 [facility] Basophils [#/volume] in Blood by Automated count 0.04 10*3/uL 0-0.2 [facility] Nucleated erythrocytes/100 leukocytes [Ratio] in Blood by Automated count 0 /100{WBCs} 0-0 [facility] ID Date Data Source [id number] 10/03/2020 01:37:17 PM [facility] Name Value Range Interpretation Code Description Data Rima rce(s) Supporting Document(s) Progress Note [facility] IZKXLa7wYxUHHhQp41/BGMpzJQBqk6EaPSqdOGw3FQffDHVgL6SjZGJ2cQ0qSGH6PUrDCiKtYqZpBRJo lbm [file] WKQ6+/wN5Sbr/boxer operator+Y9AAFmTRR3LpZ4F9y2eO6PXqR [file] ICAgICAgICAgICAgICAgICAgICAgICAgICAgICAgICAgICAgICAgICAgICAgICAgICAgICAgICAgICAg RIXuUVDgAMAeHWNdFWKmVBQnATKrMTShIO5JKFXnDUIuDYXlQTTcCGCxHDZyHIPqOMRnKCXrIBNwGYFw ICAgICAgICAgICAgICAgICAgICAgICAgICAgICAgIC YpNMCqWQUdHUOwZPRkDDLnBQOsJNBlTJLjQPIvPMVtRCSmFF8VSICzDDUxQSOjFEHzVRNiJZIdIDPvKE AgICAgICAgICAgICAgICAgICAgICAgICAgICAgICAgICAgICAgICAgICAgICAgICAgICAgICAgICAgIC KlOMAfBLByJCLnOYAyRXRfZU6IJZBbCYTlYWNcHJHk ICAgICAgICAgICAgICAgICAgICAgICAgICAgICAgICAgICAgICAgICAgICAgICAgICAgICAgICAgICAg GNKwYMCoHRUhTLZsEEMhPPHxQPFmIURlYLEjRI9OHFOuODNxFIHqDCNoDXDsFIErNJCmKCCeBFJsQBXe ICAgICAgICAgICAgICAgICAgICAgICAgICAgICAgIC FzZSXyIHPcTAKbQRZyCOOpPNNrPVKwPEIqIBNuALWpCEIiBGGmEQ6DKAXiVERhJKEyVNBiYOAkCGFjTG AgICAgICAgICAgICAgICAgICAgICAgICAgICAgICAgICAgICAgICAgICAgICAgICAgICAgICAgICAgIC CfRVBaAUMyKUCpKDKoLIIwWHMaIQ5PJIOeQGDdIMHt ICAgICAgICAgICAgICAgICAgICAgICAgICAgICAgICAgICAgICAgICAgICAgICAgICAgICAgICAgICAg ELVkNRQqZYUnSRSgWKZwYFDvZBJpFQBoYTDnBSCuAD5FMEJjBWYkJKOwMNPhJRIwDITqUXNwZJGrKZKw ICAgICAgICAgICAgICAgICAgICAgICAgICAgICAgIC RyGEIaTNKqEOQpRYFjUEGaVLOkVMEbMFVjZPJgNQHwVJPzRDErSHSxSO2YCDSdLRRvPUOcCUGkTGYcNA AgICAgICAgICAgICAgICAgICAgICAgICAgICAgICAgICAgICAgICAgICAgICAgICAgICAgICAgICAgIC AxIXPpMICbKWLyGAMyANVsDSEcADWxZG0FKIWaHHMk ICAgICAgICAgICAgICAgICAgICAgICAgICAgICAgICAgICAgICAgICAgICAgICAgICAgICAgICAgICAg JRAsIHTwNEIoYLKgQAOcVMNzCILvZBTzMFGoUQHkHMJwBE2NQZ22vDBat2S1BRVwCV1nirw/Qg8MOBcu qrLlrHXkDV4VGeNfIG9pha2TMsJqNR1wjd9IFQsNGc FqF7S5uSAmAMOoTNAWIzFyY01iHExxRu37VXuyIXXgEgEbKPg8Xq8XRhHpW1lyWEJoOvW7JEGnLlX4GH LaDlCjUEpjTN1Vi8DkePXjHPz+Fn0NEG8po7KwDPyjBCIbYA6asp5AAEnRHuLmW2ZkzrH1DAO4INArNn 2QXWSdMCOwmIWiPgYfXKJVCxXpR6VcdS51BVHGHr1+ YGtjvoWkOdbZGlQ7ZSJmz2AfEJv3ZY0WZBOdXQk2sVRhRBJzV1Xrw1EwEn15AULgCkqeE9mkHL72XAMQ bOZftw2vpdswZB8VOmXuUAQaQV0tYg1lGRZlDBE0EfT7SBIOUQ9MWCSeWOBioLJvPZWhWKETVR6FQIxg OHD4DWDquwVpuGWrRJtjEW0NSISegoRoBbGvKNVKMZ o+Yb4OYU2eh0JjHArkRwPpVY8ttc1ILSrJFiObZ3C9uCFjQ2V1NLgcJi7TDWCwDXOdDqEaVHOMPWnaBW 9YKZ2wekU4GI1KcYMoKOWpKHWbbNGwRPc8X73kpDJkNHmoWJ5QCYA+David+Jv5OTGJuSKVnHQJzUrJhAY RHOzLvN5PrG6UAl2MhU5DgHU34eDhiojLjEAvoDG9W LR0sXBQxMJCJFQ7BrPNvkZ6itjJiAAYwGSJHFnGzA22lcGXaRTWqFRC2OKGaBc9KXCZzU2AzolOakEym jsHwOPTnPRKPBA2JFBoldiCnmJMndQrgAX67tIjwEX0ZZh2ZSgFnHN7hzt2YaHDoLg6ITDQtZG9ULKZf HHYmWVZbFZT2GLGfWcWrVNklCINzMVApLRI8DHRvHD IkQN9UXzLiGIWsBPMqWRLmBPRyYNRgmh7MVHCzTDBfTRq0YUPpBKSyCGVwBSejKJGgTBLjKFI0HYLaMB OzUB3OLiWyLUNjJOUiRqGfOOJoAPZoew1HZAFaLEMvXvU5WHJrLFHfDCPjBFvhUGWwHUM7DfDhEXKiLP YbWU2VAwZfGOYiEKA2NIRbLCCjZIUhhp9ZMVMrOOVq CkBsQaMdVHZdTXDpLYzjUUZmEJQ1AVx7LPHsGXFsOK8WDiGiSYUtRLi8LQBvOAJlBVWylz6FHBVzGVFt FBysQYMrMUBnGEPqQEttXYLsWTM2OEVsZXBsEDKuAW9FVtUrFKRtAIgkFprbOWChFFPmyq2PTMYoVMXs CWW0KDDwELSeEAWlZPhyWWYqWIJgBex5BIMlNMEtFH 3ASyImLHUmVNC3VuvbREWvLFKwwt7XXDOlHSHjYZMnPBPkTKHvXKUyJXyiGOFhVMRvHvL6ARHaDOVrNP 0NCkXtUXPdYKB3PkOgSBNqEYCwgt4QDDDtQFUoRjz6MqPnDQGrXKMaAIumXPGzGCWyZYc3XRXdLJXyCW 8FLdDhANUrCPRoJNOkHWXqTPQgts3XVRPdDHIkZjD4 OYHoKPDxTIEiODpvYRWfDSU8GBc2LXVrAVIwCV9MTqGkUWInJDYdExUbQVVqMXCldk4VUHNsOMMtFSSy VEXlUKAhLKYrZNy8wwEheKCfBSa3CH8FD1DnftTxFvuRDa6Nq989YDM9ZCAgWz8AI1wyRc4fDMCkMSJO Qg1NBUp9UuSwIBOlJ7G8ETH0YSBuYQVsZDU2Z0G2RP h4IeYzTHJ+MIykFNH1A8M3PcJ8Csy5Q9W1IpN3KKT0Dlh9ETK8E3T7QW9iYKOSSv0+DQpzdGFydHhyZW YWXcC7JQW1NRrkQUHIKt6K ID Date Data Source [id number] 10/03/2020 09:47:35 AM EDT [facility] XR CHEST FRONTAL ONLY [id number] RESULTI nterpreted by:LANDEN RaderROCEDVERONICA INFORMATION: Exam: XR Chest Exam date and [...] rce(s) Supporting Document(s) ID Date Data Source [id number] 10/03/2020 04:40:17 AM EDT [facility] Name Value Range Interpretation Code Description Data Rima rce(s) Supporting Document(s) Creatinine [Mass/volume] in Serum or Plasma 0.60 mg/dL 0.50-0.90 [facility] Glomerular filtration rate/1.73 sq M pre dicted among non-blacks [Volume Rate/Area] in Serum or Plasma by Creatinine-based formula (MDRD) >6 0 [facility] Glomerular filtration rate/1.73 sq M pre dicted among blacks [Volume Rate/Area] in Serum or Plasma by Creatinine-based formula (MDRD) >60 [facility] ID Date Data Source [id number] 10/02/2020 08:19:50 PM EDT [facility] Name Value Range Interpretation Code Description Data Rima rce(s) Supporting Document(s) Progress Note [facility] AAMZGz5zFtEUGzIo39/CVUxhTBFhb9PlYDfyZHz0SQhcCVDkV1BnIDK7pA6gEPZ5ZIdXMtEbUxKuOLOf lbm [file] ZcXRDaAzf3ZVmuFdmvOfBuIwJyZT5RKe9IKeJ5GWP7bNInDz4DIOP7ZbMPXaUcTR7NVBo= ID Date Data Source [id number] 10/02/2020 09:06:56 PM [facility] Name Value Range Interpretation Code Description Data Rima rce(s) Supporting Document(s) Parathyrin.intact [Mass/volume] in Serum or Plasma 35 pg/mL 15-65 [facility] ID Date Data Source [id number] 10/13/2020 01:04:00 PM [facility] Surgical Pathology ReportName: Shad VARGASMRN: [id number] Number: [id number] Date: 10/02/2020 17:19Received Date: 10/05/2020 11:51Physician(s): OUSMANE WARD,OUSMANE AREVALO,MDSpecimen(s) ReceivedA: Total thyroidectomyB: Left central compartment lymph [...] Tumor (pT): pT2 Regional Lymph Nodes (pN): aQ6mHnfyilwwbb Findings Additional Findings: Adenomatoid nodule(s) or nodular folliculardisease CAP eCC June 2019 Annual Release Robert Duvall M.D.;Resident PathologistElectronically Signed By Sumeet Torres MD, Attending Pathologist :04:20Processed at [facility] Pathology Laboratory at [facility], [address] [place] [address]. [facility], [address] [place], [place] [id number]. The attending pathologist named above attests that [...] within 0.1 cm of the exterior capsule. Rehab Services Aide sectionsto include patient access representative nodules are submitted in seven cassettes [...] developed and their performance characteristics determined by [facility] Pathology department. They have not been cleared or approved by the USFood and Drug Administration. The FDA has determined that such clearanceor approval is not necessary. Name Value Range Interpretation Code Description Data Rima rce(s) Supporting Document(s) ID Date Data Source [id number] 10/02/2020 01:46:59 PM [facility] Name Value Range Interpretation Code Description Data Rima rce(s) Supporting Document(s) History and Physical [facility] WSLZWk3jNvXUNsVm96/YVEvyRARlf2ZkFNyrQQo9XXabDFSvJ5VdXUY9tG4bQAR8BDlUBcRoViImAXRn lbm [file] AgICAgICAgICAgICAgICAgICAgICAgICAgICAgICAgICAgICAgICAgICAgICAgICAgICAgICAgICAgIC AgICAgICAgICAgICAgICAgICAgICAgICAgICAgICAgICAgICANCiAgICAgICAgICAgICAgICAgICAgIC AgICAgICAgICAgICAgICAgICAgICAgICAgICAgICAg ICAgICAgICAgICAgICAgICAgICAgICAgICAgICAgICAgICAgICAgICAgICAgICANCiAgICAgICAgICAg ICAgICAgICAgICAgICAgICAgICAgICAgICAgICAgICAgICAgICAgICAgICAgICAgICAgICAgICAgICAg ICAgICAgICAgICAgICAgICAgICAgICAgICAgICANCi AgICAgICAgICAgICAgICAgICAgICAgICAgICAgICAgICAgICAgICAgICAgICAgICAgICAgICAgICAgIC AgICAgICAgICAgICAgICAgICAgICAgICAgICAgICAgICAgICAgICANCiAgICAgICAgICAgICAgICAgIC AgICAgICAgICAgICAgICAgICAgICAgICAgICAgICAg ICAgICAgICAgICAgICAgICAgICAgICAgICAgICAgICAgICAgICAgICAgICAgICAgICANCiAgICAgICAg ICAgICAgICAgICAgICAgICAgICAgICAgICAgICAgICAgICAgICAgICAgICAgICAgICAgICAgICAgICAg ICAgICAgICAgICAgICAgICAgICAgICAgICAgICAgIC ANCiAgICAgICAgICAgICAgICAgICAgICAgICAgICAgICAgICAgICAgICAgICAgICAgICAgICAgICAgIC AgICAgICAgICAgICAgICAgICAgICAgICAgICAgICAgICAgICAgICAgICANCiAgICAgICAgICAgICAgIC AgICAgICAgICAgICAgICAgICAgICAgICAgICAgICAg ICAgICAgICAgICAgICAgICAgICAgICAgICAgICAgICAgICAgICAgICAgICAgICAgICAgICANCiAgICAg ICAgICAgICAgICAgICAgICAgICAgICAgICAgICAgICAgICAgICAgICAgICAgICAgICAgICAgICAgICAg ICAgICAgICAgICAgICAgICAgICAgICAgICAgICAgIC AgICANCiAgICAgICAgICAgICAgICAgICAgICAgICAgICAgICAgICAgICAgICAgICAgICAgICAgICAgIC AgICAgICAgICAgICAgICAgICAgICAgICAgICAgICAgICAgICAgICAgICAgICANCjw/pRRaF9ljaXJxtd D0C5gzVs7KHp2WSZ3ze1HnZSJaXKxobiHyUfaAOkFg STSeIqmCZup6PHmaYC8RtTCaT0PbF3JvFYucDE8ECCNsQZWqeCXnKCXjKWCcUcL5SYLuBYfkGB0GoELy BVloRSAxBDStWdUhJHMiUK4BHZQlE867tbPpEu4HAo6EDyWrYG4los6VRtpdIPKiFlyPQcr5EIcyBZ4T hROabPHfYJNmDGVUJtSqS8sjt9LnJohlSJQKNYraHR 5Gi7VclCEePHx+Ws8LRQ4zt0VcCDvsHMWhJR0czx9XZHqBOlMlT3LalKclYZyqFFOjoFARlQMxOKXcMQ lsPHPxfZh2WXJMXWMujID6CzSqAhKeWtBqKVH0GVgePL2zRDwdEH7BSIN5CVuyGVZxNGBpG3eYVhFnAU CcEhCvlEqkRB4PGyDbR7SmbkWgrOMeWaSvSNSDQn4+ XGkxieMyYubUXmP1OGUgr4PgXLw0XX3TBUOeBMuzGU3CBFZvqA4dSCorNP8BMmYnPOPsQWUOSgDdC92v yLJkWMy3G8EqUdJdMIBqXoycWROeMPywXbZpLMDhPyCfEKcdIC3+ID4+QEitEE9XAImhkqGjXSDnPj8G TXBoNUIvLB7eWIXsGBShJ2E8pBfaFXVYGcYgW3mbvv yuIJ7vZKKvY852hHopjtXgBBT7TAMlTo3ADHVlVXI8RYWlrDWaQsLfJUKAJXrcUE7ZmEIdVIP8oK5uUX ioRRSySMKbA3sTAbIgfSkxYT46cWzxsvSvtXAjMNb+Eo5ZPL5wn1PlHTg4vuZwEPheYSUhMMtmYLMkDS UqJSWyAZQ5CBW9IIGUTvPzQWEwVDRmOWdnMNZfKKZs vl4EXDVcYBIoBbN3GIRjYCKhQPVgZQhkGTLdNSX5VAYfIXZuUPGrUL2TBaGoBTZdFNKyYTpxEKNiPHNi ji3UIIXaEZPsBrtvCoOjRUAeOMEaPWcrTWSxCKIgROT3POCfNVGwTC1TRaFkHAYpODA5HACbJFZyVQMa tl7PVGZoGEKeMeJ5BAFkJFPzCVMqLLbyQHOgHAF3LP G1NRWaBJZkXQ8NYpUrYLJwRLugUKQwUMQqGUBmtt8UHCMcDYYjRaD7BTHoBRBxMNUtQTdtZXXvRCI9Gs PnVEMrSLHzKD9PVeVdHXOlKIq9GEAqZJThFXSadm7GJHSfVHHlRDjkOYFyKSNdCZFiDMuoCBLbWFY0Un vcKUEqGNNyXK4JNdMjYORvXLi8GQkfCYVwOYXepf7F WGSzCHPmNWZ6JXBlMXGpYGDdZWadDGRrJANaNDZ6GTXwCSXsVB6VUaXyZMGoVeI0VwLbPEThLYBykt4I HALvDRRiESm7PhAwXVCfHLMaRSqzSRHpBQVwEbWdTCCnTKLoQV2OYxBgAJGgPgLjXmhlZGWzLHUljl9M KPNmGUHjQpWzMLGrGWLcRECzKLtaIARuRKGpIRv4NE UuZLZaNN7LHrBoDGYrWvA0UllxUKHwFCBiqq2BHGLzRPGxQRHtUIBtFYIpBNFhSKksGEUfBLC0HXQ5ZU ImTEJsLX4IEzNdTCEmMcM1MuPpMRLoNFWhmi7TGPKhKAQlTPe4GFKbZTFeFUIhRZc9ynHolHWaPWo8CS 4NC4MsylNwLoIBYl3Ar207HWQ9AFBxQk3MG9qlQs0d FFLnJLSIGg5FHJk7YWQ8UTUxJvZiUFA0LjMnA4LpPPI5XeG8LARtCKueUoD+QAv0HAFeCiZ1DWFkATxi EyGxDKUkDRfxTCDcVPA5YGS7PT6eHEPTYb7+DCueiMBfmHxzPYBHJmW3NSW2CRftQDVUQo2O ID Date Data Source [id number] 10/02/2020 12:32:51 PM EDT [facility] Name Value Range Interpretation Code Description Data Rima rce(s) Supporting Document(s) Choriogonadotropin.beta subunit free [Units/volume] in Serum or Plasm a <5 [facility] (NOTE)Levels between 5 and 25 [IU]/L may indicate earlypregnancy and should be repeated after 48 hours. ID Date Data Source [id number] 09/28/2020 09:57:01 AM EDT [facility] Name Value Range Interpretation Code Description Data Rima rce(s) Supporting Document(s) Progress Note [facility] HADTIh0dNiQSGtJm09/ZPKuyJSGph4QzPKevVPj5CWdaRDZcZ6IoZFK3dM3xCRV3ICmHLhCmKvLzQIA7 lbm [file] c/BtnRpcI35Kyl7r29YMxq+t/ATrA3zLkScRpM/ rrygF9n+66oY4Y0jJ5QOuwcGeYs5+ctHGvIfcZkNDpokeuhuCgIpoc6wQdatxEjKuDKTVayrtqaCXt6E zC84ke1ZYaOKyW1uhzV+WYvPWDBuwWmhy6pIOiKlEkeo3C5nrnt9iVntz1QI52tnlvTIVPnkk0jYtvGb R7jqej44/+9Ar4Dy0pgmplxAaub6b0Wp8SRLaaBdOf b0qAUHSwdJw5Wivsg5a+IOxl6dIHX1AHQJbZBZEwbrUsYvwbJoWQSIzam62fPD86P37S7vSbFqexHBsV uXIYvlfKqfJaea+9Q63Xx7egES/BGIvS9cV8Fz/mTa8bUt+2WAzakcMov7/WPtG+107ja+tDyy9ddDlj WXp/faJ+wx7WO9CnOrODhxpzfnMsfMYwKUA+3XOpp4 3fjQpG6xxAFU2odfj4tzyoi+lTktRcD4pn9m6wckBG8U275SxueFsF/gjVjxHnGf6IlzXT2O9nd3x95t d8IM7hyS1edugh4+Xu6brMVetwdhMiwzd966fQmcYDXM73IiT2paCypcB7ugdgjvUetWdUvgJZJfjtQh 8LpzV0Lh4tWngB/wp8x0sQRkQm+gQ6MY8aK6rxn3eD gCpksn4xaQl5DLzmhf90j3OdDaSeoRoJnzvaI65xQP3KO+xorVuNkRf3M76PvijE/dbP9CeU4bAY9ZlA 6MtHwvuTVDF8X65abkV1JgfVmKBxH9F83sYKjYC0eksLYliz81r4r44yY3c0css2D+bAmlh3BhhMH0YU hqFkNk1mp3763AoqVG7PMLPgUQhN+yFam5m2RB3I6G ZolQnQadswundAD/VLhgYeKU2vCYgHZErHHuwjuy3Y1FLgGRnTsrN5BRiH8zCMkgBuM7olhASHq8hXjS ahIp4xNyvR04WL8XWo3q7GsZI2QedTTaOi8ncwL0cUUV+XnAaqENOIGa5cwPsSwhZcg39w1WWCBhXm7Y 7pas4MR0Uvr4CmkW+85GeA0e4MOoY1BcFXaTSy+TeU NIVxFB2fn2fyg1Rcm/d6hAAEH8o+AK4JjtwnAQsIAf2RDuHwfD1O5n926m48OO940ogOh3xaWc1YCPPT W9dD/tzXq6SF1tnI+vYc6Af0/zcK2VC7BT4cJJL0Kkykw5UvPjwwBRBC15LSqD3eJsKXzgkfnP+71lpr Yy7AI6uTLesl4lHr+nXQ/JjFstXTj+nySJVkH3Dcwg wW3Tk4hmjemT1DDpOGcWHMm3W8fHpiFfMZw6gsqXTawu+6W7qzMFyBpLDqdOA5PIWRFHF1EBlzbXzpEt gHeAwwFR+SlXUgC8OOI1OMEJuIwJ9RoD6w+o1Pmge5Bam3F7guLPah25QeSVUwOjQa+PUgic54V+dL7O TGoOQr2o6yyKq7VOxhG+Vi9wvef98KsL7I4+Ip [file] ICAgICAgICAgICAgICAgICAgICAgICAgICAgICAgICAgICAgICAgICAgICAgICAgICAgICAgICAgICAg LRIoWKBfAMDjHYAdHVGmKKGkJNWcFDYbKAItMJ5ZZB AgICAgICAgICAgICAgICAgICAgICAgICAgICAgICAgICAgICAgICAgICAgICAgICAgICAgICAgICAgIC XlTYUfAINfLSYzOVJdCQLcLRCjRLKeNNErQDAlFKNjLMHpTGBiWG5RRZLxUGBiBYZfRDToOTKiUVZdYG AgICAgICAgICAgICAgICAgICAgICAgICAgICAgICAg CIWuVPNwUQGvYDDdDQZqGKWmMNMcLLJfMGInMJOrVACgXUXwPZCsBSWoTXLzOVVzLY5MAUBsASJsPUCa ICAgICAgICAgICAgICAgICAgICAgICAgICAgICAgICAgICAgICAgICAgICAgICAgICAgICAgICAgICAg ICAgICAgICAgICAgICAgICAgICAgICAgICAgICAgIA 0KICAgICAgICAgICAgICAgICAgICAgICAgICAgICAgICAgICAgICAgICAgICAgICAgICAgICAgICAgIC EvCHPsRPXuXXYdITYkTCNcBYHmAPAcCUNmDXCkRVOgVXNnAWMoARTpTA9GIVVvRWHuAYNwXXHtROHqUY AgICAgICAgICAgICAgICAgICAgICAgICAgICAgICAg EZHdFOMvVTWeOEQxBWKiNGXmUXImAOKiGLEzZBVrISEcLBPnVWRzMMAzZZUdSNSqDBZwWP6DBPOzCFAk ICAgICAgICAgICAgICAgICAgICAgICAgICAgICAgICAgICAgICAgICAgICAgICAgICAgICAgICAgICAg ICAgICAgICAgICAgICAgICAgICAgICAgICAgICAgIC LmGA9AMLIpTDLnJPTuWBCqYIWsRCEqIEFuQNDpUXMoYJSiFRQwKBQoFIIzXDBgYVAaHZItHIMdFEBrWB WvBFUcFLFjSVOaPEFeVEYqOSDvJBCcVCHcPRQiLXGsNWTwVCAqYQUeMQMxOA3ZXEEfYSOiSKVaTHYbWM AgICAgICAgICAgICAgICAgICAgICAgICAgICAgICAg ZRVjMXIrKPRhCPJzPPUlJRWsVCDhHBUqPGNvYDZmFBHyQJZhSDXsACTyCEViQFGnCFRvINLqUA2VUWLy ICAgICAgICAgICAgICAgICAgICAgICAgICAgICAgICAgICAgICAgICAgICAgICAgICAgICAgICAgICAg ICAgICAgICAgICAgICAgICAgICAgICAgICAgICAgIC CtTQWrNJ6VQF04rSRip2D6BPVrEU8tjwn/Jj4PDHvorvGreBGxQF0PLnZpJQ4gld6GPyVrPD5fnk8KLX cSVfGgA1K4rTOwWHJwDREPUiHdN92tKQdvFx53SAmaEZLyUuFbZZi4Mz6ORzLxC2hoCABrWcP7ZSZrPw SaREopGT9Kv1OqmBYhYWr+Kq9LIQ3rl5EjMAbbBAUs NR7wcd9XVUkFEzLbC4ToajB9ZBLrZUNsEb5JEUOhAILppMGsRKGqXCOFHfRwK5XkvB67VMJXIc1+DQpl jeTpJwvGKpYkUDMdl8YlDRx2TO4TZUEiRTc4dJDsROZfJ3Lqk0HtDj92PMPxWuufH4QcCZppWmXRoULn tTBpvGcsBc7oLYWdOX2xOz5xNBDmVPPpIcTtURPKNE 0LXLEeQWMnsKUzBNHnNSHFQD5OJMeyOGT9WXXiayZriYYsAKniWC2ZWHIebbFfPJjzLRPACOm+Pg0KZW 6qn2AxZWpnFOVtDV3mmp8XCKyGYgViB8V5eXRgG4V8MVveMb5YZLZsUNZcLYptFBFUETtyOM7HGR4beq N6RE1EcMIqCXBnJUOdiDAvFGb7A46iyQLdQZukSC8J ICA+David+Ht4LHHIwFPBbHZCkEqFxLLMECmSeJ9UbW4ASj1OuU6BrST02tVkxfrCdQTayEY3DFI5sLKVp RKQUOH7WuJQhyM3iomOxMFYeDNHOIpAcA74tgBOvPJYfWHX9NKBaDh8XXNBjQ6DidcXhyMdpbdCyELWr ODWDHX8KSTaiwwWdcJJcvDthBQ47iKysIY7MSs4SIc ZjKG8aft2ReSBbUz4NUMZwCn0ZUXRcWHZkNBGtRYG3UZXdBgGpOXtdLSXgOZSvBED5MBVlTVSrGQ9KTp SbVCQcMOwaSezyCSElCFUazp9IGVOyDSZfTVe3BiMvIGKlUSWmBUwlDLWfZEJdPZY8JVIxUMGgAN2FTv ZpRJSgGIOcVHUqPMHpSQWrea3GHQXbLXDyYlI9TYAg JGUzDCWnQYggJGLlDUEyAqB2RHFvEHYmKF8TMoBkNNLrXOY4TBXwHNLeHOZaxr7ALSWeSBLlOuCkBGYp CXFbBXFlAEdoEMXzOJO8PMmqXUUcGCNiFC5FQtXaVMHeIBJ5CDCsNDArNDUxbn5OBQVpYEXkSOa7KOEs QTJzHFJyMXpjWKCrZJL8BwO7ZKAwHRBjDH5KHiVuDS FdGQK0ATHsSYHsTATuzz3KPTVgDPKqQbj1UAKoDIZgNUVdGZzdBUPcTRE0JRGxXRHqSZIrXE7MIqSnDH AzQOqiQUlyUOQdBPOhat7VTDYpNPNrOgU8YxRlSRYlWNBqVUzbTBGiRVS1EKn5BGKgLNXrTO0DTtPoZQ ZfTSviFTMaHXBvNLAwdj8KGQAoTEFbPCCsKqEmJOGz JSMfTCx7hbKgpVTqLVu2NF6EL0TcrgYfBfVKUr2Os616RZYpMLXrVq1DM7flVh1kEAYxXCJIKk0RSDr2 RaLmWuYrVIK2N9HvOCShDbR2NNJ5IofdQvMfEHo0IZD+KMdlPDZjHTBkHXM2VtG1WqU5BsU5RutgJBOl LVApXtBcHK8kDIWFWr2+HZuniMGjvOikITWYIhC3FUVaUUalMPCLAm5L ID Date Data Source [id number] 09/28/2020 09:57:00 AM EDT [facility] Name Value Range Interpretation Code Description Data Rima rce(s) Supporting Document(s) SARS-CoV-2 RNA 2019 nCoV Real-Time RT-PCR: NOT DETECTED [facility] This lab was ordered by [facility] and reported by [facility]. 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 [facility] Patient has symptoms related to [facility] When did you start to experience these symptoms [Date and time] [Phen X] [facility] Patient was hospitalized because of this condition [facility] patient was admitted to ICU for [facility] Patient resides in a congregate care setting [facility] status [facility] ID Date Data Source [id number] 08/21/2020 10:06:38 AM EDT [facility] Name Value Range Interpretation Code Description Data Rima rce(s) Supporting Document(s) Progress Note [facility] UMKDHa0jTiXKSyCw23/XQRyxGMBjx8RlNRcdZEn9IPuvFGKpM4LzJXH7tC5vUVI6QCbOHoLgLiGzJQX5 [facility] [file] ICAgICAgICAgICAgICAgICAgICAgICAgICAgICAgIC AgICAgICAgICAgICAgICAgICAgICAgICAgICAgICAgICAgICAgICAgICAgICAgICAgICAgICANCiAgIC AgICAgICAgICAgICAgICAgICAgICAgICAgICAgICAgICAgICAgICAgICAgICAgICAgICAgICAgICAgIC AgICAgICAgICAgICAgICAgICAgICAgICAgICAgICAg ICAgICANCiAgICAgICAgICAgICAgICAgICAgICAgICAgICAgICAgICAgICAgICAgICAgICAgICAgICAg ICAgICAgICAgICAgICAgICAgICAgICAgICAgICAgICAgICAgICAgICAgICAgICANCiAgICAgICAgICAg ICAgICAgICAgICAgICAgICAgICAgICAgICAgICAgIC AgICAgICAgICAgICAgICAgICAgICAgICAgICAgICAgICAgICAgICAgICAgICAgICAgICAgICAgICANCi AgICAgICAgICAgICAgICAgICAgICAgICAgICAgICAgICAgICAgICAgICAgICAgICAgICAgICAgICAgIC AgICAgICAgICAgICAgICAgICAgICAgICAgICAgICAg ICAgICAgICANCiAgICAgICAgICAgICAgICAgICAgICAgICAgICAgICAgICAgICAgICAgICAgICAgICAg ICAgICAgICAgICAgICAgICAgICAgICAgICAgICAgICAgICAgICAgICAgICAgICAgICANCiAgICAgICAg ICAgICAgICAgICAgICAgICAgICAgICAgICAgICAgIC AgICAgICAgICAgICAgICAgICAgICAgICAgICAgICAgICAgICAgICAgICAgICAgICAgICAgICAgICAgIC ANCiAgICAgICAgICAgICAgICAgICAgICAgICAgICAgICAgICAgICAgICAgICAgICAgICAgICAgICAgIC AgICAgICAgICAgICAgICAgICAgICAgICAgICAgICAg ICAgICAgICAgICANCiAgICAgICAgICAgICAgICAgICAgICAgICAgICAgICAgICAgICAgICAgICAgICAg ICAgICAgICAgICAgICAgICAgICAgICAgICAgICAgICAgICAgICAgICAgICAgICAgICAgICANCiAgICAg ICAgICAgICAgICAgICAgICAgICAgICAgICAgICAgIC AgICAgICAgICAgICAgICAgICAgICAgICAgICAgICAgICAgICAgICAgICAgICAgICAgICAgICAgICAgIC AgICANCjw/bYGsJ5ofoBXbwzN7K7aoIn7BSo4VCN5od5VjKMOeKZoaylRiWnqHDeDqDATxVctKWxn2JR xqTW3PzANfS6JyW4UzBFoiKK7VZINrQAWnsXDzPWUw BBVsAnW8HAIiQCtrOK9UaADlNJlhGSWwEIAdUbZiVVPaHVOyQSOhHGEyXFUNAOLoCVYrBzJsQPUoBQZw AS6JEQKhU626bvWnSt5RNj5FWzSyMK0jde3BFkFoDUMpQegLTgb6FYtoWU2JqAKwwGLxYzNyIZFDZyKm F5ccc6GmDeZsODMPMHqoFQ2Av7AuxTTpMUq+Pg0KZW 8lg8DuAGyjNrRxYB1yyj7SNNfMWgRbX3LuuBmsRNTbg8doWMEiQA8gsPAhTSR8KK3woUEjpDAiENQQtX DdWRbbRGlqAZQUUGDniJPtOtD2IhBtZrDiNQQ7NLOlRB8bYPslTN3XABC5PHosEKQxRNRnT7cPErRzJI RlYEZzbQmxWL5FYkCvX4KaatUfbJHaPcGlSVBNWj1+ YGsuhuGsOhlYUoO2JIOdb4IpDXq4WY6WPCFfKPpiGN5QIFXfcJ0jZLjuNX9DGkOmSEEgITOELfCtO37f jLXcHNk1H7DqVaLjNTWkXwbgQWJrSHlhRfHnOXMvIvFyRPyuAY6+ID4+MJgwZF1FPMsoepVoZXBiGp1Z BQKxWFXlIU8tRAIvNAYoT5H9dRjbNRIVUdZlK2kebg nmDN7uJLByG147pAauicZoOGYfCOClVv3EZVSiGPQ0XLZxrXSuDwKjONHSUQlyUF5EiXYzAAJ3aD5qWU qjPKLbAGTyD0pFVpChcYwlBT21zNocqpQouETiDUd+Up4ZLY5cs4AhUPl9uwReSGafMWK0BJivUDKzRU OgTPPhBZH7EIO6IBXMPwRgUCOkPDOhNFtiNBVmFNQi wa9FKCVsWAQaYYMxLvMzEKUnHZUbSQauYSPqWROwDhapRZTrIXMyOB7ZGlDmUTTbNNTpAWbeKOUvROKv sn7RBIWtVBOqPcT0YrQwLLNxVKDwCIsfMEDxPXJuKtRdXVWmICByGA2VFxDnBEQeYSVtMGUiDJEjKZZw md7DBZJmBFSrAhSoUINuFVSlBQCrRGttZPQuIBL3Rn E3YXXpINKjNM4MCaMdQKZxBPo7MBIxGJKcLLIhov2NROHfKUHrPPC7MVZmVEWoKLZmKUzdZNJoHIXuDj ydUECvKGWyVD0WJoCpEXFaUPD5XKUgHSXyUSQavz8EKNRrBRAwESB6UzVpLYOiFKGsHNtkKPSrJKRbGF G2NJQrAGJcKP6YOmHxPMXfFKI3FFIkGHSnFWVgdm3Z TPCmXTMyPTQlIAAnEVHbDTBsCLljVKUoVLL4DQIyKBYnAZEzHE1JJtNhXWKcMOE6DPLuOZFrNFLhcl9V LHVkROFtLQx6WKGyAMFqOFSrPPnrYCWvHJI3OCT3VQInTEAlLP4QXfNuQPMsWSZeKGCaCLHtGMOvbd6I TJYgOMSoIoz2IVRbUFKeFELgUKurBKIiGOS4NMu3CB WmNMBxMD2WViExDHWnUqrjOMtbVQBcPNMqop2ONUGwIFRtOCZ3FNAeZNAnBSLxIUimZRPvXHG5BsW1GW BoZUTpES8QWdGwMGYzQum6YHjwKIBcMJWmev3IRHFfMTMzOHobPcGwXYUaSNAwVCilLLRjVPViOLW1UF WwRNGtTW6OIkSkNOXxVfL5LxBlFHSnXBTpjb7EELEc SFVxUSqhHzGfGHRaBJVjQSayFAOjSNGmMHltCCJwMKYtXZ0XGmXdLIYjXrVtVpvySIPdEOQmgv9EhKOa dNhdlv8RXGpTJx2BsCnbKBF0PHamNt6ppKFhKOIpCXEOIs0VagSvIJSsYVROBZpwNXHuUVZvHfU6LOSk EHRdBct8NwWiJOrqJXTvCYCkKSN8BpoaUxS7LFYzWY fnUAZeRMQoOmweMSR6PGT0VdBfXVHwFXSyIEV+DB0xJYo+Nb7Az4GbwgE4iwIbZKeuGnN0Eo2GLMQOX4 YNCg== ID Date Data Source [id number] 08/03/2020 04:35:00 PM EDT [facility] CYTOPATHOLOGY REPORTName: SAMMY VARGAS NMRN: [id number] Number: [id number] Date: 07/31/2020 00:00Received Date: 07/31/2020 14:47Physician(s): OUSMANE WARD MD MARZOUK, MARK F, MD Copy To:CARLY RANGEL MDSpecimen(s) ReceivedA: THYROID, RIGHT, FNA, CONSULTATION ([id number]) 1Clinical History:Original diagnosis received from [facility] 07/29/2020:"Atypia of Undetermined Significance"DiagnosisTHYROID, RIGHT, FNA, CONSULTATION ([id number]) 07/29/2020: SUSPICIOUS FORMALIGNANCY (SEE MICROSCOPIC DESCRIPTION)Comment/pf/calReviewing Cytotech: [...] carcinoma. /pf/joo Gross DescriptionReceived 1 slide labeled "[id number] Laureen Vargas" with pathology reportfor consult from [facility], Department of Laboratories, [address] [place] [address]. . [phone].This report may include one or more immunohistochemical stain results thatuse analyte specific reagents. All positive and negative controls havebeen reviewed by the attending pathologist and are satisfactory. The testswere developed and their performance characteristics determined by [facility] Pathololgy department. They have not been cleared or approved by [place] Food and Drug Administration. The FDA has determined that suchclearance or approval is not necessary. Name Value Range Interpretation Code Description Data Rima rce(s) Supporting Document(s) ID Date Data Source [id number] 07/16/2020 04:48:02 PM [facility] Name Value Range Interpretation Code Description Data Rima rce(s) Supporting Document(s) Progress Note [facility] WNVJIb3zEdTLHhYn44/CEMuoWMSgq1WrTQwkFOz9DXgoMVUxB4GrSPE5hB8lZYK2QWkPOgInEbOtThV5 lbm [file] [id number]== ID Date Data Source [id number] 06/01/2020 03:25:43 PM [facility] Name Value Range Interpretation Code Description Data Rima rce(s) Supporting Document(s) Progress Note [facility] KYTOMk5gBzQHFySc71/QWFixUDRxr2OfPUurMGv1VSjiOPGfD6OwGCK5oM0pJIL5WLwFMvHgEwIhUWF2 lbm [file] ICAgICAgICAgICAgICAgICAgICAgICAgICAgICAgICAgICAgICAgICAgICAgICAgICAgICAgICAgICAg QXEwRAPiRVYrRLNyRWXvFIRqKC2AUCGvMQOlAPWeWXSaROSyXXUdOFXdHWSnKZAyOHFyINLfDQKzQMXl ICAgICAgICAgICAgICAgICAgICAgICAgICAgICAgIC QnBZXkSKIcNZWuQVBxKCNyHQAyBGUnUWJpGSPuNX9ZEGQfYBYjPEXzEURhXGUgHYThPGQcLJBjUVMfGE AgICAgICAgICAgICAgICAgICAgICAgICAgICAgICAgICAgICAgICAgICAgICAgICAgICAgICAgICAgIC UgLIYuRHWuCAWqPV8PZBOwAHMlKZZaXDUtMKOfHKGb ICAgICAgICAgICAgICAgICAgICAgICAgICAgICAgICAgICAgICAgICAgICAgICAgICAgICAgICAgICAg IYFqTGCzRCXePICrONMaZSTaRKNrHC4ERYKoVGZaJMNjYHXdKXAbHWAyDFLgOKLcVQJxXAKwAVHwREMw ICAgICAgICAgICAgICAgICAgICAgICAgICAgICAgIC GaFGVpCEGwCPHxCKFfUHQqSGGjWHDeGZQzJTIoLRVqVL9QTQYhZPIdIFMeGUNvUDMdLGAeCVWuCCYhWY AgICAgICAgICAgICAgICAgICAgICAgICAgICAgICAgICAgICAgICAgICAgICAgICAgICAgICAgICAgIC IaXAMdVGKtFNDiRVKmZR1YZEZrGDEzVVIqHEYlJRAr ICAgICAgICAgICAgICAgICAgICAgICAgICAgICAgICAgICAgICAgICAgICAgICAgICAgICAgICAgICAg VKJvTURrMDMpOEZpXLUuMDCrYSQjIKZsHN4CUJNtEUSzEENlEIVdEQGbMJYlRRUzKDWnGFJbRNEhJONk ICAgICAgICAgICAgICAgICAgICAgICAgICAgICAgIC RnAOXbXHRvOJRfARCfEMNwHPZuOXOiMZQeWIUsDJLeJUDvKO1ZQDRzAVAtMOUaWXZsMXAdUYXeBUYkOK AgICAgICAgICAgICAgICAgICAgICAgICAgICAgICAgICAgICAgICAgICAgICAgICAgICAgICAgICAgIC ZmCJOeMGXvEZZuFOJmNDXdHL5UZFFxKTVgWZInXNDt ICAgICAgICAgICAgICAgICAgICAgICAgICAgICAgICAgICAgICAgICAgICAgICAgICAgICAgICAgICAg YQUnDYOnSDNaUAKnLUGfVPMuDLIwZGTvIZTcUE4IKA60vMFbn9S1TJKxMC7xsnz/Zt9TBLvjzfXtmKBe NS8AAxCcSL8kny4ZErPcYP3klj9VDNsSViIvF4C8nI NzOIIvXRTWWsDzD67aXTmbUb95LHyeDAGjMcMeKYs7Ht7PEoPaR0fcUCFoOfJ4HEOeCiR5QRItWzN5KB OoKmDhVCXnSSJoOO7HABLrA900raTsOB7LHm2QBpKjQL5xkl8HPfjhSPFeScdHTrt3SZcbGU4SoVSwkP YeGEXlETKMCqGnY3upi9ErGumzWVORXOzaCD7Hf8Lw dCAxDQo+Vc9YDZ0qd9SzIKabQGJjSS1yqc1NKQwHYtAyD2LvsUnvQYAdk5xwFKOvFI0ieTRePTW3RBZt td58t9nuPlDlyg7tk5acLH6KTID1ZPDdOC3qRYKcFSSiKaM2UDIDTQ4LWKRhASPweGFfLTGuQPCZVD3P ZQeiAOZ7ZUNwvhSigBSqEKyqUO9GUZMkdpVdRiflRX BSDQo+Nk2YBX7su8UfTBdjVQHjHN3bkj1UVVyRMrTeS4S4iKYfM0X5TVlsOj6EPNAgNVDoInQrULZAFV tyTV2JOC9ijiI4DQ4IwNCkNQOjCJRujDGlUZk2H15gwKSnITvnWD5KNMZ+David+Ty0HWHAxGPRmGCYiGx JaTFFNRiNrH2BeB9MEe9FsS1HhFO83hOxpzzBrOAij LC5JCC4mPQUuFYAPKY3SlVQoiR3scgVlCNAlSBOAUmNwL02prYYfXXRuBQT2WOZxGe5NQTPsB3OcknZo dGrtcbToAMBbHMAFVD2NURksaaQojMPcoWhxBL07iSjdBL8JYv9OZgFzHQ2pab1IaXZiLz0GXFGcRY2J OLIjDTQoDDQeGTV0HPJwTzQjQEsjQBGnDZVdYIF9RM SbIFThXH0CWjAeEAReCtI0YfbcBVFeFUFcyh3RDVTdWMGaWeStVrFiQSHxQFQcMHdwISZqNFRmSUB5FR QtIOVeDG7WItIrSARjWSQvXbHyKNZsKEWych1VOECcBHSrXaSzNvHgMPXsOYBbTMdjVREbKFX3WJi4WP AhVIHhKE6ADePoJVPgQHJ9RRTsEINnHZHzmx7PVCTj MFHyETO4VLNyMVQgCZTkGIbtSIToDWD4QLX2SGExUQOcYO6TUfLmDIToLOdeJHPaIZHmOIFmdm3ZKBIa NRSxGIL7HfSqDOUyLLLvIYayBEGuWVAtDaZ6VRUdEPAgVS8WZrVhOLJuPYL0JYQgZQPcFYZwwy8NVGBd GCKgKWFpNdAzMFGjCCAsPHkdUVEqCWYpACb1CHXpZJ LiKI3IDzRhPBVaZWZ4WDxkAMIvJQEbse1HHSQzURJtIMt2KLOnBLSdKAFqECyaYQBlBWXeMYZ0CBEdSR EqWZ1NTpZwVWRiZjZ7VuPdLWYyBDOlgd8FYGPiGDAhKdxhLFRbGXWfMVZxBOkiNHXdSOW4CHy9ZXXsTS PaDJ5KFbEiPPAsCjSxEyMsIJRlIZJctb3JRLFvDOIc LEB1MQSvYBSjVFMpXYgiJSVdQIQ6REQ3GJVuXMZcPA2PEaIfFQNyDmR9ZYYdQUPdEKZerc3JBFHmOHQq NfF5PrHsQDYyNCXbHGikBXUkXKG4FKJ9TCMwYXRhVU5PLfCzWCXjUti4OBVvLBZgDHKdbr3PBPHlUFKv Ewy2WCZqZBBiHBHgVFd2ppFnsDFfLPz9ZV1TZ8Goji VyJiNCPg4Vo126JCZjUATjDs9JU1tlMc6sPKHcTZTNUy8NGFi1AteeNRJyGROvBWOvSMYyPJp7R1ErEb C1YOh3ScN7AZN+NGq2QVOaQhPxAZGwJHRuZSKiHoIkThUfRNaoJdSjEoJaCA2aVYCGIn0+DQpzdGFydH fyKHSYHdM8VOj7EGngOCGLAy2P ID Date Data Source [id number] 05/12/2020 10:26:00 AM EST [facility] ([facility]) Name Value Range Interpretation Code Description Data Rima rce(s) Supporting Document(s) Triiodothyronine (T3) Free [Mass/volume] in Serum or Plasma 3.2 pg/ mL 2.0-4.4 [facility] ([facility]) Thyroxine (T4) [Mass/volume] in Serum or Plasma 5.8 ug/dL 4.5-12.5 [facility] ([facility]) Thyroperoxidase Ab [Units/volume] in Serum or Plasma Laborat ory test result 0-34 [facility] Thyrotropin [Units/volume] in Serum or Plasma 0.90 uIU/mL 0.47-5.01 [facility] ([facility]) Thyroxine (T4) free [Mass/volume] in Serum or Plasma 0.95 ng/dL 0.93- 1.70 [facility] ([facility]) ID Date Data Source [id number] 05/14/2020 08:49:00 AM EST [facility] Name Value Range Interpretation Code Description Data Rima rce(s) Supporting Document(s) Thyroperoxidase Ab [Units/volume] in Serum or Plasma <9 IU/mL 0-34 [facility] ID Date Data Source [id number] 05/14/2020 08:49:00 AM [facility] Value Range Interpretation Code Description Data Rima rce(s) Supporting Document(s) Triiodothyronine (T3) Free [Mass/volume] in Serum or Plasma 3.2 pg/ mL 2.0-4.4 [facility] ID Date Data Source [id number] 05/13/2020 07:25:00 AM [facility] Value Range Interpretation Code Description Data Rima rce(s) Supporting Document(s) Thyroxine (T4) free index in Serum or Plasma by calculation 0.95 NG/DL 0.93 - 1.70 [facility] ID Date Data Source [id number] 05/12/2020 07:17:00 PM [facility] Value Range Interpretation Code Description Data Rima rce(s) Supporting Document(s) Thyrotropin [Units/volume] in Serum or Plasma by Detec tion limit <= 0.05 mIU/L 0.90 uIU/mL 0.47 - 5.01 [facility] ID Date Data Source [id number] 05/12/2020 07:17:00 PM [facility] Value Range Interpretation Code Description Data Rima rce(s) Supporting Document(s) Thyroxine (T4) [Mass/volume] in Serum or Plasma 5.8 UG/DL 4.5 - 12.5 [facility] ID Date Data Source [id number] 04/06/2020 01:53:00 PM EST [facility] ([facility]) Name Value Range Interpretation Code Description Data Rima rce(s) Supporting Document(s) Calcidiol [Mass/volume] in Serum or Plasma 13 ng/mL [facility] ([facility]) Is patient fasting? Y Thyrotropin [Units/volume] in Serum or Plasma 0.65 uIU/mL 0.47-5.01 [facility] ([facility]) Is patient fasting? Y ID Date Data Source [id number] 04/06/2020 01:53:00 PM EST [facility] ([facility]) Name Value Range Interpretation Code Description Data Rima rce(s) Supporting Document(s) Cve Panel Laboratory test result [facility] ([facility]) Is patient fasting? Y Cholesterol 163 mg/dL 131-200 [facility] ([facility]) Is patient fasting? Y LDL 99 mg/dL 65-175 [facility] ([facility]) Is patient fasting? Y Triglycerides 103 mg/dL 35-160 [facility] ([facility]) Is patient fasting? Y HDL 53 mg/dL 29-86 [facility] ([facility]) Is patient fasting? Y LDL/HDL 1.87 1.47-3.22 [facility] ([facility]) Is patient fasting? Y Risk Factor 3.1 3.2-4.4 Below low normal [facility] ([facility]) Is patient fasting? Y ID Date Data Source [id number] 04/06/2020 01:53:00 PM EST [facility] ([facility]) Name Value Range Interpretation Code Description Data [facility] rce(s) Supporting Document(s) Hemoglobin A1c/Hemoglobin.total in Blood 5.2 % 4.4-6.1 [facility] ([facility]) Is patient fasting? Y ID Date Data Source [id number] 04/06/2020 01:53:00 PM EST [facility] ([facility]) Name Value Range Interpretation Code Description Data Rima rce(s) Supporting Document(s) Comprehensive [employer] Laboratory test result [facility] ([facility]) Is patient fasting? Y Potassium 4.2 meq/L 3.6-5.0 [facility] ([facility]) Is patient fasting? Y Chloride 107 meq/L 98-107 [facility] ([facility]) Is patient fasting? Y Sodium 139 meq/L 134-153 [facility] ([facility]) Is patient fasting? Y Co2 24 meq/L 22-30 [facility] ([facility]) Is patient fasting? Y BUN 9 mg/dL 7-21 [facility] ([facility]) Is patient fasting? Y Glucose 97 mg/dL 65-110 [facility] ([facility]) Is patient fasting? Y BUN/Creat 18 8-27 [facility] ([facility]) Is patient fasting? Y Total Protein 6.5 g/dL 6.3-8.2 [facility] ([facility]) Is patient fasting? Y Creatinine 0.5 mg/dL 0.7-1.5 Below low normal [facility] ( [facility]) Is patient fasting? Y A/G Ratio 1.8 0.8-2.0 [facility] ([facility]) Is patient fasting? Y Albumin 4.2 g/dL 3.9-5.0 [facility] ([facility]) Is patient fasting? Y Globulin 2.3 GM/DL 2.4-3.2 Below low normal [facility] ( [facility]) Is patient fasting? Y Total Bili Laboratory test result 0.2-1.3 [facility] ([facility]) Is patient fasting? Y Calcium 8.7 mg/dL 8.4-10.2 [facility] ([facility]) Is patient fasting? Y Alkaline Phos 92 U/L 38-126 [facility] ([facility]) Is patient fasting? Y Sgot/Ast 18 U/L 5-40 [facility] ([facility]) Is patient fasting? Y SGPT/Alt 17 U/L 7-56 [facility] ([facility]) Is patient fasting? Y Anion Gap 8.0 mmol/L 8.0-16.0 [facility] ([facility]) Is patient fasting? Y Age 25 yrs [facility] ([facility]) Is patient fasting? Y Non-Aa GFR Laboratory test result [facility] ([facility]) Is patient fasting? Y Afr Amer GFR Laboratory test result [facility] ([facility]) Is patient fasting? Y ID Date Data Source [id number] 04/06/2020 01:53:00 PM EST [facility] ([facility]) Name Value Range Interpretation Code Description Data Rima rce(s) Supporting Document(s) CBC W/Automated Diff Laboratory test result [facility] ([facility]) Is patient fasting? Y WBC 6.6 10^3/uL 4.2-11.0 [facility] ([facility]) Is patient fasting? Y RBC 4.34 10^6/uL 4.20-5.40 [facility] ([facility]) Is patient fasting? Y Hemoglobin 13.3 g/dL 12.0-16.0 [facility] ([facility]) Is patient fasting? Y MCV 91.7 fL 81.0-101 [facility] ([facility]) Is patient fasting? Y MCH 30.6 pg 27.0-34.0 [facility] ([facility]) Is patient fasting? Y Hematocrit 39.8 % 37.0-47.0 [facility] ([facility]) Is patient fasting? Y RDW 11.9 % 11.5-14.5 [facility] ([facility]) Is patient fasting? Y Platelets 308 10^3/uL 150-450 [facility] ([facility]) Is patient fasting? Y MCHC 33.4 g/dL 31.0-36.0 [facility] ([facility]) Is patient fasting? Y Lymph 25.5 % 25.0-40.0 [facility] ([facility]) Is patient fasting? Y MPV 10.0 fL 7.4-10.4 [facility] ([facility]) Is patient fasting? Y Neut 65.2 % 37.0-80.0 [facility] ([facility]) Is patient fasting? Y Young 6.4 % 3.0-8.0 [facility] ([facility]) Is patient fasting? Y Eos 2.1 % 0.0-7.0 [facility] ([facility]) Is patient fasting? Y Baso 0.5 % 0.0-2.5 [facility] ([facility]) Is patient fasting? Y %Ig 0.3 % 0.0-0.0 Above high normal [facility] ([facility]) Is patient fasting? Y %NRBC 0.0 % 0.0-0.0 [facility] ([facility]) Is patient fasting? Y #Lymph 1.67 10^3/uL 0.60-3.40 [facility] System) Is patient fasting? Y #Neut 4.28 10^3/uL 2.00-6.90 [facility] ([facility]) Is patient fasting? Y #Young 0.42 10^3/uL 0.00-0.90 [facility] ([facility]) Is patient fasting? Y #Baso 0.03 10^3/uL 0.00-0.20 [facility] ([facility]) Is patient fasting? Y #Ig 0.02 10^3/uL 0.00-0.10 [facility] ([facility]) Is patient fasting? Y #Eos 0.14 10^3/uL 0.00-0.70 [facility] ([facility]) Is patient fasting? Y RBC Morph Laboratory test result [facility] ([facility]) Is patient fasting? Y Manual Diff Laboratory test result M [facility] ([facility]) Is patient fasting? Y #NRBC 0.00 10^3/uL 0.00-0.00 [facility] ([facility]) Is patient fasting? Y ID Date Data Source [id number] 04/07/2020 02:20:00 PM [facility] Name Value Range Interpretation Code Description Data Rima rce(s) Supporting Document(s) Hemoglobin A1c/Hemoglobin.total in Blood 5.2 % 4.4 - 6.1 [facility] {A1]{HB] ID Date Data Source [id number] 04/06/2020 05:02:00 PM [facility] Name Value Range Interpretation Code Description Data Rima rce(s) Supporting Document(s) Thyrotropin [Units/volume] in Serum or Plasma by Detec tion limit <= 0.05 mIU/L 0.65 uIU/mL 0.47 - 5.01 [facility] ID Date Data Source [id number] 04/06/2020 05:02:00 PM [facility] Name Value Range Interpretation Code Description Data Rima rce(s) Supporting Document(s) Calcidiol [Moles/volume] in Serum or Plasma 13 NG/ML [facility] VITAMIN-D(2 5HYDROXY) Deficiency: <=20 ng/ml Insufficiency: 21-29 ng/ml Preferred level: => 30 ng/ml ID Date Data Source [id number] 04/06/2020 04:36:00 PM EST [facility] Name Value Range Interpretation Code Description Data Rima rce(s) Supporting Document(s) CVE PANEL [facility] al LIPID PANEL Cholesterol [Mass/volume] in Serum or Plasma 163 MG/DL 131 - 200 [facility] Deprecated Triglyceride [Mass/volume] in Serum or Plasma 103 MG/DL 3 5 - 160 [facility] HDL 53 MG/DL 29 - 86 [facility] al Cholesterol in LDL [Mass/volume] in Serum or Plasma by Direc t assay 99 mg/dL 65 - 175 [facility] Cholesterol.total/Cholesterol in HDL [Mass Ratio] in Serum o r Plasma 3.1 3.2 - 4.4 L [facility] LDL/HDL 1.87 1.47 - 3.22 [facility] ital CVE RISK CHOL/HDL LDL/HDLMEN: 1/2 AVERAGE 3.43 1.00 AVERAGE 4.97 3.55 2X AVERAGE 9.55 6.25 3X AVERAGE 23.99 7.99WOMEN: 1/2 AVERAGE 3.27 1.47 AVERAGE 4.44 3.22 2X AVERAGE 7.05 5.03 3X AVERAGE 11.04 6.14 ID Date Data Source [id number] 04/06/2020 04:36:00 PM EST [facility] Name Value Range Interpretation Code Description Data Rima rce(s) Supporting Document(s) COMPREHENSIVE METABOLIC PANEL [facility] COMPREHENSIVE METABOLIC PANEL Sodium [Moles/volume] in Serum or Plasma 139 mEq/L 134 - 153 [facility] Potassium [Moles/volume] in Serum or Plasma 4.2 mEq/L 3.6 - 5.0 [facility] Chloride [Moles/volume] in Serum or Plasma 107 mEq/L 98 - 107 [facility] Carbon dioxide, total [Moles/volume] in Serum or Plasma 24 MEQ/L 22 - 30 [facility] Glucose [Mass/volume] in Serum or Plasma 97 MG/DL 65 - 110 [facility] BUN 9 MG/DL 7 - 21 [facility] Creatinine [Mass/volume] in Serum or Plasma 0.5 MG/DL 0.7 - 1.5 L [facility] BUN/CREAT 18 8 - 27 [facility] al Protein [Mass/volume] in Serum or Plasma 6.5 G/DL 6.3 - 8.2 [facility] Albumin [Mass/volume] in Serum or Plasma 4.2 G/DL 3.9 - 5.0 [facility] Globulin [Mass/volume] in Serum by calculation 2.3 GM/DL 2.4 - 3.2 L [facility] A/G RATIO 1.8 0.8 - 2.0 [facility] Calcium [Mass/volume] in Serum or Plasma 8.7 MG/DL 8.4 - 10.2 [facility] Bilirubin.total [Mass/volume] in Serum or Plasma <0.7 MG/DL 0.2 - 1.3 [facility] Alkaline phosphatase [Enzymatic activity/volume] in Serum or Plasma 92 U/L 38 - 126 [facility] Aspartate aminotransferase [Enzymatic activity/volume] in Serum or Plasma 18 U/L 5 - 40 [facility] Alanine aminotransferase [Enzymatic activity/volume] in Seru m or Plasma 17 U/L 7 - 56 [facility] Anion gap 3 in Serum or Plasma 8.0 mmol/L 8.0 - 16.0 [facility] AGE 25 yrs [facility] NON-AA GFR >60 mL/min [facility] ital AFR AMER GFR >60 mL/min [facility] spital Male GFR In terprentation 20-49 [...] >32 mL/min Normal ID Date Data Source [id number] 04/06/2020 03:47:00 PM EST [facility] Name Value Range Interpretation Code Description Data Rima rce(s) Supporting Document(s) CBC W/AUTOMATED DIFF [facility] COMPLETE BLOOD COUNT Leukocytes [#/volume] in Blood by Automated count 6.6 10^3/uL 4.2 - 1 1.0 [facility] Erythrocytes [#/volume] in Blood by Automated count 4.34 10^6/uL 4. 20 - 5.40 [facility] Hemoglobin [Mass/volume] in Blood 13.3 g/dL 12.0 - 16.0 [facility] Hematocrit [Volume Fraction] of Blood by Automated count 39.8 % 3 7.0 - 47.0 [facility] Erythrocyte mean corpuscular volume [Entitic volume] by Auto mated count 91.7 fL 81.0 - 101 [facility] Erythrocyte mean corpuscular hemoglobin [Entitic mass] by Automated count 30.6 pg 27.0 - 34.0 [facility] Erythrocyte mean corpuscular hemoglobin concentration [Mass/volume] by Automated count 33.4 g/dL 31.0 - 36.0 [facility] Erythrocyte distribution width [Ratio] by Automated count 11.9 % 11.5 - 14.5 [facility] Platelets [#/volume] in Blood by Automated count 308 10^3/uL 150 - 45 0 [facility] Platelet mean volume [Entitic volume] in Blood by Automated count 10.0 fL 7.4 - 10.4 [facility] Neutrophils/100 leukocytes in Blood by Automated count 65.2 % 37. 0 - 80.0 [facility] Lymphocytes/100 leukocytes in Blood by Manual count 25.5 % 25.0 - 40.0 [facility] Monocytes/100 leukocytes in Blood by Automated count 6.4 % 3.0 - 8.0 [facility] Eosinophils/100 leukocytes in Blood by Automated count 2.1 % 0.0 - 7.0 [facility] Basophils/100 leukocytes in Blood by Automated count 0.5 % 0.0 - 2.5 [facility] %IG 0.3 % 0.0 - 0.0 [facility] %NRBC 0.0 % 0.0 - 0.0 [facility] Neutrophils [#/volume] in Blood by Automated count 4.28 10^3/uL 2.00 - 6.90 [facility] Lymphocytes [#/volume] in Blood by Automated count 1.67 10^3/uL 0.60 - 3.40 [facility] Monocytes [#/volume] in Blood by Automated count 0.42 10^3/uL 0.00 - 0.90 [facility] Eosinophils [#/volume] in Blood by Automated count 0.14 10^3/uL 0.00 - 0.70 [facility] Basophils [#/volume] in Blood by Automated count 0.03 10^3/uL 0.00 - 0.20 [facility] #IG 0.02 10^3/uL 0.00 - 0.10 [facility] ospital #NRBC 0.00 10^3/uL 0.00 - 0.00 [facility] ospital MANUAL DIFF NOT INDICATED [facility] RBC MORPH NOT INDICATED [facility] spital ID Date Data Source [id number] 02/12/2020 12:00:00 AM EDT [facility] Name Value Range Interpretation Code Description Data Rima rce(s) Supporting Document(s) SARS coronavirus 2 RNA [Presence] in Res piratory specimen by AMINA with probe detection [facility] This lab was ordered by Mars Galvez and reported by [facility]. Procedure Social History Code Duration Value Status Description Data Source(s ) Alcohol intake 10/02/2020 12:00:00 AM EDT Ex-drinker (finding) comp leted Ex- drinker (finding) [facility] Tobacco use and exposure 10/02/2020 12:00:00 AM EDT Never used co mpleted Never used [facility] Smoking 10/02/2020 12:00:00 AM EDT Never smoker completed Never s meker [facility] Alcohol intake 08/05/2020 12:00:00 AM EDT Current drinker of al cohol (finding) completed Current drinker of alcohol (finding) [facility] Alcohol intake 05/19/2020 12:00:00 AM EST Current drinker of al cohol (finding) completed Current drinker of alcohol (finding) [facility] Vital Signs ID Date Data Source UNK Name Value Range Interpretation Code Description Data Source(s) Body weight 246.00 [lb_av] 246.00 [lb_av] [facility] Body weight 111.586 kg 111.586 kg [facility] ([facility]) Systolic blood pressure 122 mm[Hg] 122 mm[Hg] M [facility] ([facility]) Diastolic blood pressure 76 mm[Hg] 76 mm[Hg] [facility] ([facility]) Heart rate 76 /min 76 /min [facility] ([facility]) Body temperature 97.8 [degF] 97.8 [degF] [facility] ([facility]) Respiratory rate 16 /min 16 /min [facility] ( [facility]) Oxygen saturation in Arterial blood by Pulse oximetry 99 % 99 % [facility] ([facility]) Body height 64 [in_i] 64 [in_i] [facility] ([facility]) 5'4" Body mass index (BMI) [Ratio] 42.2 kg/m2 42.2 k g/m2 [facility] ([facility]) Body surface area Derived from formula 2.14 m2 2.14 m2 [facility] ([facility]) Body weight 111.642 kg 111.642 kg [facility] ([facility]) Body height 64 [in_i] 64 [in_i] [facility] ([facility]) 5'4" Body mass index (BMI) [Ratio] 42.2 kg/m2 42.2 [facility] Body surface area Derived from formula 2.14 m2 2.14 m2 [facility] ([facility]) Systolic blood pressure 122 mm[Hg] 122 mm[Hg] M [facility] ([facility]) Diastolic blood pressure 78 mm[Hg] 78 mm[Hg] [facility] ([facility]) Heart rate 82 /min 82 /min [facility] ([facility]) Body temperature 97.7 [degF] 97.7 [degF] [facility] ([facility]) Respiratory rate 16 /min 16 /min [facility] ( [facility]) Oxygen saturation in Arterial blood by Pulse oximetry 98 % 98 % [facility] ([facility]) Body weight 246.12 [lb_av] 246.12 [lb_av] [facility] T ([facility]) ID Date Data Source [id number] 10/13/2020 01:04:43 PM [facility] Name Value Range Interpretation Code Description Data Source(s) WEIGHT RECORDED 243.2 lb 243.2 lb [facility] WEIGHT RECORDED 255 lb 255 lb [facility] Body height Measured 63 in 63 in [facility] ID Date Data Source [id number] 08/21/2020 10:06:38 AM [facility] Name Value Range Interpretation Code Description Data Source(s) WEIGHT RECORDED 241.8 lb 241.8 lb [facility] Body height Measured 62.99 in 62.99 in [facility] ID Date Data Source [id number] 06/01/2020 03:25:43 PM [facility] Name Value Range Interpretation Code Description Data Source(s) WEIGHT RECORDED 244 lb 244 lb [facility] Body height Measured 63 in 63 in [facility] Patient Treatment Plan of Care Planned Activity Planned Date Details Description Data Source (s) Calcium Carbonate 500 MG Chewable Tablet 10/05/2020 12:00:00 AM [facility] Levothyroxine Sodium 0.175 MG Oral Tablet 10/05/2020 12:00:00 AM [facility] Docusate Sodium 100 MG Oral Capsule 10/05/2020 12:00:00 AM [facility] Ibuprofen 400 MG Oral Tablet 10/05/2020 12:00:00 AM [facility] Acetaminophen 325 MG Oral Tablet 10/05/2020 12:00:00 AM [facility] Ondansetron 4 MG Disintegrating Oral Tablet 10/05/2020 12:00:00 AM [facility] 0.4 ML Enoxaparin sodium 100 MG/ML Prefilled Syringe 021 12:00:00 AM [facility] bacitracin zinc 0.5 UNT/MG Topical Ointment 10/05/2020 12:00:00 AM [facility] Acetaminophen 325 MG / Hydrocodone Bitartrate 5 MG Ora l Tablet 10/05/2020 12:00:00 AM [facility]spital ondansetron (ZOFRAN-ODT) disintegrating tablet 4 mg 10/03/19 08:41:21 PM [facility] Docusate Sodium 100 MG Oral Capsule 10/02/2020 08:41:20 PM [facility] Melatonin 3 MG Oral Tablet 10/02/2020 08:41:20 PM [facility] 12 HR Bupropion Hydrochloride 150 MG Extended Release Oral Tablet 05/12/2020 12:00:00 AM [facility]ital Loratadine 10 MG Oral Tablet 04/20/2020 12:00:00 AM [facility]
[2021-04-02] MEDS ORDERED: ACET325C5 PO (12:44)
[2021-04-02] MEDS ORDERED: IBUP-1114 PO (12:44)
[2021-04-02] MEDS ORDERED: EUTH100T (12:44)
[2021-04-02] MEDS ORDERED: NS 1,000 ML IV ONE (13:45)
[2021-04-02] MEDS ORDERED: diphenhydrAMINE 50MG/ML VIAL (J1200) IV ONE (13:45)
[2021-04-02] MEDS ORDERED: METOCLOPRAMIDE INJ 10MG/2ML VIAL (J2765 PER 1) IV ONE (13:45)
[2021-04-02] MEDS ORDERED: ACETAMINOPHEN 500 MG TAB PO ONE (13:45)
[2021-04-02 14:29] VITALS: BP 132/74
== END 2021-04-02 14:30 | disposition home or self-care (01) ==
LOC: M ED 10:52
DX: G43.909 Migraine, unspecified, not intractable, without status migrainosus (principal); R50.9 Fever, unspecified; J45.909 Unspecified asthma, uncomplicated; F41.9 Anxiety disorder, unspecified; F32.9 Major depressive disorder, single episode, unspecified; Z88.8 Allergy status to other drugs, medicaments and biological substances; J30.81 Allergic rhinitis due to animal (cat) (dog) hair and dander; Z91.018 Allergy to other foods

== ENCOUNTER 2021-06-27 12:28 | Emergency (ER) | payer OTHER ==
[~2021-06-27] VITALS: Ht 162.6 cm; Wt 122.3 kg
[2021-06-27 12:28] VITALS: BP 139/103
[~2021-06-27 12:28] MED LIST changes: +ACET325C5 PO; +EUTH100T; +IBUP-1114 PO
== END 2021-06-27 14:20 | disposition left against medical advice (07) ==
LOC: M ED 12:28
DX: Z53.29 Procedure and treatment not carried out because of patient's decision for other reasons (principal)

== ENCOUNTER → 2021-06-30 | Outpatient (CLI) | payer OTHER | LOC: M RAD 11:05 | PROVIDERS: ATTEND Otolaryngology | DX: C73 Malignant neoplasm of thyroid gland (principal); E89.0 Postprocedural hypothyroidism; R59.0 Localized enlarged lymph nodes; E04.2 Nontoxic multinodular goiter ==

== ENCOUNTER → 2021-07-01 | Outpatient (CLI) | payer OTHER ==
[2021-07-01 16:05] LABS: FREE T4 0.42 NG/DL (0.76-1.46)
[2021-07-01 16:09] LABS: THYROGLOBULIN ANTIBODY < 15.0 U/ML (<60.0)
[2021-07-02 12:08] LABS: THRYOGLOBULIN ANTIBODIES (ATA) < 1.0 IU/mL (0.0-0.9); THYROGLOBULIN QUANTITATIVE 37.2 ng/mL (1.5-38.5)
== END ==
LOC: M PLALAB 12:47
PROVIDERS: ATTEND Internal Medicine Endocrinology, Diabetes & Metabolism
DX: C73 Malignant neoplasm of thyroid gland (principal)

== ENCOUNTER → 2021-07-21 | Outpatient (CLI) | payer OTHER ==
[2021-07-21 13:32] LABS: FREE T4 0.42 NG/DL (0.76-1.46); THYROID STIMULATING HORMONE 87.2 uIU/ML (0.358-3.740)
== END ==
LOC: M PLALAB 09:20
PROVIDERS: ATTEND Nurse Practitioner Family
DX: E89.0 Postprocedural hypothyroidism (principal)

== ENCOUNTER 2021-08-22 21:38 | Emergency (ER) | payer OTHER ==
[~2021-08-22] VITALS: Ht 162.6 cm; Wt 113.6 kg
[~2021-08-22 21:38] MED LIST changes: +BUPR-71; -BUPR150T5
[2021-08-22] MEDS ORDERED: ONDANSETRON 4MG/2ML VIAL IV ONE (23:55)
[2021-08-22] MEDS ORDERED: NS 1,000 ML IV ONE (23:55)
[2021-08-23 00:50] LABS: BASO % 0.3 % (0.0-1.0); EOS # 0.2 10^3/uL (0.0-0.5); EOS % 2.4 % (0.0-3.0); HEMATOCRIT 37.2 % (36.0-47.0); HEMOGLOBIN 12.8 g/dl (12.0-15.5); LYMPH # 1.5 10^3/uL (1.5-5.0); LYMPH % 23.3 % (24.0-44.0); MEAN CORPUSCULAR HEMOGLOBIN 32.7 pg (27.0-33.0); MEAN CORPUSCULAR HGB CONC 34.4 g/dl (32.0-36.5); MEAN CORPUSCULAR VOLUME 95.1 fl (80.0-96.0); MONO # 0.5 10^3/uL (0.0-0.8); MONO % 7.9 % (2.0-8.0); NEUTROPHILS # 4.1 10^3/uL (1.5-8.5); NEUTROPHILS % 65.6 % (36.0-66.0); PLATELET COUNT, AUTOMATED 238 10^3/uL (150-450); RED BLOOD COUNT 3.91 10^6/uL (4.00-5.40); WHITE BLOOD COUNT 6.2 10^3/uL (4.0-10.0)
[2021-08-23] MEDS ORDERED: ONDANSETRON 4MG ORAL DISINTEGRATING TAB PO ONE (01:00)
[2021-08-23] MEDS ORDERED: ACETAMINOPHEN 500 MG TAB PO ONE (01:00)
[2021-08-23 01:07] LABS: INR 1.04
[2021-08-23 01:08] LABS: PARTIAL THROMBOPLASTIN TIME 34.1 SECONDS (25.9-37.0)
[2021-08-23 01:09] LABS: ALBUMIN 3.7 GM/DL (3.2-5.2); ALT/SGPT 48 U/L (12-78); BILIRUBIN,DIRECT < 0.1 MG/DL (0.0-0.2); BILIRUBIN,TOTAL 0.5 MG/DL (0.2-1.0); LIPASE 75 U/L (73-393)
[2021-08-23 01:10] LABS: D-DIMER QUANT 481.88 ng/ml (<500)
[2021-08-23] MEDS ORDERED: NS 1,000 ML IV ONE (01:30)
[2021-08-23] MEDS ORDERED: AMOX875T2 PO (02:01)
[2021-08-23 02:15] VITALS: BP 126/82
[2021-08-23 02:59] LABS: RSV AMPLIFICATION NEGATIVE (NEGATIVE)
== END 2021-08-23 02:35 | disposition home or self-care (01) ==
LOC: M ED 21:38
DX: H66.92 Otitis media, unspecified, left ear (principal); G43.909 Migraine, unspecified, not intractable, without status migrainosus; R19.7 Diarrhea, unspecified; R06.02 Shortness of breath; Z79.899 Other long term (current) drug therapy; Z91.018 Allergy to other foods; Z88.8 Allergy status to other drugs, medicaments and biological substances; J30.81 Allergic rhinitis due to animal (cat) (dog) hair and dander

== ENCOUNTER → 2021-09-01 | Outpatient (CLI) | payer OTHER ==
[~2021-09-01] MED LIST changes: +AMOX875T2 PO
== END ==
LOC: M LAB 16:43
PROVIDERS: ATTEND Internal Medicine Endocrinology, Diabetes & Metabolism
DX: E89.0 Postprocedural hypothyroidism (principal)

== ENCOUNTER → 2021-11-20 | Outpatient (CLI) | payer OTHER ==
[2021-11-20 14:35] LABS: FREE T4 1.29 NG/DL (0.76-1.46)
[2021-11-22 12:46] LABS: THYROGLOBULIN ANTIBODY < 15.0 U/ML (<60.0)
[2021-11-23 13:07] LABS: THRYOGLOBULIN ANTIBODIES (ATA) < 1.0 IU/mL (0.0-0.9); THYROGLOBULIN QUANTITATIVE 7.7 ng/mL (1.5-38.5)
== END ==
LOC: M LAB 13:36
PROVIDERS: ATTEND Nurse Practitioner Family
DX: E89.0 Postprocedural hypothyroidism (principal); C73 Malignant neoplasm of thyroid gland

== ENCOUNTER → 2022-02-15 | Outpatient (CLI) | payer OTHER ==
[2022-02-15 16:20] LABS: FREE T4 0.91 NG/DL (0.76-1.46)
[2022-02-16 15:19] LABS: THYROGLOBULIN ANTIBODY < 15.0 U/ML (<60.0)
== END ==
LOC: M PLALAB 14:18
PROVIDERS: ATTEND Nurse Practitioner Family
DX: E89.0 Postprocedural hypothyroidism (principal); C73 Malignant neoplasm of thyroid gland

== ENCOUNTER → 2022-07-25 | Outpatient (CLI) | payer OTHER ==
[2022-07-25 16:47] LABS: THYROID STIMULATING HORMONE 45.192 uIU/ML (0.55-4.78)
[2022-07-25 16:48] LABS: FREE T4 0.78 NG/DL (0.89-1.76)
[2022-07-27 11:08] LABS: THRYOGLOBULIN ANTIBODIES (ATA) < 1.0 IU/mL (0.0-0.9); THYROGLOBULIN QUANTITATIVE 12.6 ng/mL (1.5-38.5)
== END ==
LOC: M PLALAB 13:31
PROVIDERS: ATTEND Internal Medicine Endocrinology, Diabetes & Metabolism
DX: E89.0 Postprocedural hypothyroidism (principal); C73 Malignant neoplasm of thyroid gland

== ENCOUNTER 2022-10-30 14:25 | Emergency (ER) | payer OTHER ==
[~2022-10-30] VITALS: Ht 162.6 cm; Wt 122.7 kg
[~2022-10-30 14:25] MED LIST changes: +CIPR0.3S37 OS; -CIPR0.3S6 OS
[2022-10-30 14:27] VITALS: BP 134/75; TEMP 97.8; O2SAT 95
[2022-10-30] MEDS ORDERED: FLUORESCEIN OPHTH 1MG STRIP OD ONE (15:00)
[2022-10-30] MEDS ORDERED: TETRACAINE 0.5% OPHTH SOLN 4ML OD ONE (15:00)
[2022-10-30] MEDS ORDERED: CIPROFLOXACIN 0.3% OPHTH SOLN 2.5ML OD ONE (15:40)
[2022-10-30] MEDS ORDERED: CIPR0.3S37 OD (15:43)
== END 2022-10-30 15:57 | disposition home or self-care (01) ==
LOC: M ED 14:25
DX: S05.01XA Injury of conjunctiva and corneal abrasion without foreign body, right eye, initial encounter (principal); W26.9XXA Contact with unspecified sharp object(s), initial encounter; E07.9 Disorder of thyroid, unspecified; F41.9 Anxiety disorder, unspecified; F32.A Depression, unspecified; E66.9 Obesity, unspecified; J30.81 Allergic rhinitis due to animal (cat) (dog) hair and dander; Z79.899 Other long term (current) drug therapy; Z88.8 Allergy status to other drugs, medicaments and biological substances; Z91.018 Allergy to other foods

== ENCOUNTER → 2022-11-22 | Outpatient (CLI) | payer OTHER ==
[~2022-11-22] MED LIST changes: +CIPR0.3S37 OD
[2022-11-22 14:50] LABS: FREE T4 1.36 NG/DL (0.89-1.76)
[2022-11-22 14:51] LABS: THYROID STIMULATING HORMONE 0.7 uIU/ML (0.55-4.78)
[2022-11-23 10:13] LABS: THRYOGLOBULIN ANTIBODIES (ATA) < 1.0 IU/mL (0.0-0.9)
== END ==
LOC: M PLALAB 10:28
PROVIDERS: ATTEND Nurse Practitioner Family
DX: E89.0 Postprocedural hypothyroidism (principal); C73 Malignant neoplasm of thyroid gland

== ENCOUNTER → 2023-03-19 | Outpatient (CLI) | payer OTHER ==
[~2023-03-19] MED LIST changes: +LORA-1041; -LORA-674; +MECL-209 PO; -MECL1TAB31 PO
== END ==
LOC: M RAD 15:00
PROVIDERS: ATTEND Student in an Organized Health Care Education/Training Program
DX: M54.50 Low back pain, unspecified (principal)

== ENCOUNTER → 2023-05-18 | Outpatient (CLI) | payer OTHER ==
[2023-05-18 16:13] LABS: FREE T4 0.9 NG/DL (0.89-1.76); THYROID STIMULATING HORMONE 9.793 uIU/ML (0.55-4.78)
[2023-05-20 12:47] LABS: THRYOGLOBULIN ANTIBODIES (ATA) < 1.0 IU/mL (0.0-0.9); THYROGLOBULIN QUANTITATIVE 17.8 ng/mL (1.5-38.5)
== END ==
LOC: M PLALAB 12:28
PROVIDERS: ATTEND Nurse Practitioner Family
DX: E89.0 Postprocedural hypothyroidism (principal); C73 Malignant neoplasm of thyroid gland

== ENCOUNTER → 2023-07-26 | Outpatient (CLI) | payer OTHER ==
[2023-07-26 16:22] LABS: FREE T4 0.87 NG/DL (0.89-1.76); THYROID STIMULATING HORMONE 14.444 uIU/ML (0.55-4.78)
[2023-07-28 10:08] LABS: THRYOGLOBULIN ANTIBODIES (ATA) < 1.0 IU/mL (0.0-0.9); THYROGLOBULIN QUANTITATIVE 9.4 ng/mL (1.5-38.5)
== END ==
LOC: M PLALAB 11:56
PROVIDERS: ATTEND Nurse Practitioner Family
DX: E89.0 Postprocedural hypothyroidism (principal); C73 Malignant neoplasm of thyroid gland

== ENCOUNTER → 2023-09-05 | Outpatient (CLI) | payer OTHER ==
[2023-09-05 16:12] LABS: FREE T4 1.86 NG/DL (0.89-1.76); THYROID STIMULATING HORMONE 0.06 uIU/ML (0.55-4.78)
== END ==
LOC: M PLALAB 12:14
PROVIDERS: ATTEND Internal Medicine Endocrinology, Diabetes & Metabolism
DX: E89.0 Postprocedural hypothyroidism (principal)

== ENCOUNTER → 2023-12-05 | Outpatient (CLI) | payer OTHER ==
[~2023-12-05] MED LIST changes: +FLUO-365; -FLUO20CA22
[2023-12-05 19:08] LABS: THYROID STIMULATING HORMONE 2.627 uIU/ML (0.55-4.78)
[2023-12-05 19:11] LABS: FREE T4 1.33 NG/DL (0.89-1.76)
[2023-12-05 19:14] LABS: THYROGLOBULIN ANTIBODY < 15.0 U/ML (<60.0)
== END ==
LOC: M PLALAB 12:20
PROVIDERS: ATTEND Nurse Practitioner Family
DX: E89.0 Postprocedural hypothyroidism (principal)

== ENCOUNTER → 2024-03-12 | Outpatient (CLI) | payer OTHER ==
[2024-03-12 13:47] LABS: BASO % 0.4 % (0.0-1.0); EOS # 0.1 10^3/uL (0.0-0.5); EOS % 1.8 % (0.0-3.0); HEMATOCRIT 40.8 % (36.0-47.0); HEMOGLOBIN 13.3 g/dl (12.0-15.5); MEAN CORPUSCULAR HEMOGLOBIN 30.7 pg (27.0-33.0); MEAN CORPUSCULAR HGB CONC 32.6 g/dl (32.0-36.5); MEAN CORPUSCULAR VOLUME 94.2 fl (80.0-96.0); MONO # 0.5 10^3/uL (0.0-0.8); MONO % 7.5 % (2.0-8.0); NEUTROPHILS # 4.4 10^3/uL (1.5-8.5); PLATELET COUNT, AUTOMATED 267 10^3/uL (150-450); RED BLOOD COUNT 4.33 10^6/uL (4.00-5.40)
[2024-03-12 13:54] LABS: ALBUMIN 3.6 G/DL (3.2-5.2); ALKALINE PHOSPHATASE 72 U/L (35-104); ALT/SGPT 17 U/L (7.0-40); AST/SGOT < 8 U/L (<34); BILIRUBIN,TOTAL 0.4 MG/DL (0.3-1.2); BLOOD UREA NITROGEN 9 MG/DL (9-23); CALCIUM LEVEL 8.2 MG/DL (8.5-10.1); CARBON DIOXIDE LEVEL 26 MMOL/L (20-31); CHLORIDE LEVEL 111 MMOL/L (98-107); CHOLESTEROL LEVEL 140 MG/DL (<200); CHOLESTEROL RISK RATIO 3.71 (<5); CREATININE FOR GFR 0.69 MG/DL (0.55-1.30); GLOMERULAR FILTRATION RATE > 60.0 (>60); GLUCOSE, FASTING 86 MG/DL (60-100); HDL CHOLESTEROL 37.7 MG/DL (>40); LDL CHOLESTEROL 79.1 MG/DL (<100); NON-HDL-C 102.3 MG/DL; POTASSIUM SERUM 4.1 MMOL/L (3.5-5.1); SODIUM LEVEL 141 MMOL/L (136-145); TOTAL PROTEIN 6.4 G/DL (5.7-8.2); TRIGLYCERIDES LEVEL 116 MG/DL (<150)
[2024-03-12 13:56] LABS: THYROID STIMULATING HORMONE 1.275 uIU/ML (0.55-4.78)
[2024-03-12 13:57] LABS: TOTAL 25(OH) VITAMIN D 28.5 NG/ML (20.0-100.0)
[2024-03-12 14:14] LABS: HEMOGLOBIN A1c 4.9 % (4.0-6.0)
== END ==
LOC: M PLALAB 10:22
PROVIDERS: ATTEND Nurse Practitioner Adult Health
DX: E03.9 Hypothyroidism, unspecified (principal); F41.9 Anxiety disorder, unspecified; Z79.899 Other long term (current) drug therapy

== ENCOUNTER → 2024-05-24 | Outpatient (CLI) | payer OTHER ==
[2024-05-24 16:50] LABS: FREE T4 1.14 NG/DL (0.89-1.76); THYROID STIMULATING HORMONE 6.107 uIU/ML (0.55-4.78)
== END ==
LOC: M PLALAB 14:00
PROVIDERS: ATTEND Nurse Practitioner Family
DX: E89.0 Postprocedural hypothyroidism (principal); C73 Malignant neoplasm of thyroid gland

== ENCOUNTER 2024-06-05 08:55 | Emergency (ER) | payer OTHER ==
[~2024-06-05] VITALS: Ht 162.6 cm; Wt 119.3 kg
[2024-06-05] MEDS ORDERED: SERT25TA85 PO (09:10)
[2024-06-05] MEDS ORDERED: ARIP1TAB PO (09:11)
[2024-06-05] MEDS: KETOROLAC 60MG 2ML VIAL IM ONE (13:22)
[2024-06-05] MEDS: methocarbamoL 750 MG TAB PO ONE (13:22)
[2024-06-05] MEDS ORDERED: METH-1165 PO (14:12)
[2024-06-05] MEDS ORDERED: MELO15TA28 PO (14:12)
[2024-06-05 14:32] VITALS: BP 128/81; TEMP 98; O2SAT 98
== END 2024-06-05 14:33 | disposition home or self-care (01) ==
LOC: M ED 08:55
DX: M54.50 Low back pain, unspecified (principal); C73 Malignant neoplasm of thyroid gland; F17.200 Nicotine dependence, unspecified, uncomplicated; F19.10 Other psychoactive substance abuse, uncomplicated; Z87.42 Personal history of other diseases of the female genital tract; Z79.899 Other long term (current) drug therapy; Z79.1 Long term (current) use of non-steroidal anti-inflammatories (NSAID); Z91.018 Allergy to other foods; Z88.8 Allergy status to other drugs, medicaments and biological substances
CPT/HCPCS: 72110; 99283; J1885

== ENCOUNTER → 2024-06-13 | Outpatient (CLI) | payer OTHER ==
[~2024-06-13] MED LIST changes: +ARIP1TAB PO; +MELO15TA28 PO; +METH-1165 PO; +SERT25TA85 PO
[2024-06-13 18:45] LABS: BASO % 0.5 % (0.0-1.0); EOS # 0.2 10^3/uL (0.0-0.5); EOS % 2.3 % (0.0-3.0); HEMATOCRIT 40.9 % (36.0-47.0); HEMOGLOBIN 13.3 g/dl (12.0-15.5); LYMPH # 1.8 10^3/uL (1.5-5.0); LYMPH % 20.6 % (24.0-44.0); MEAN CORPUSCULAR HEMOGLOBIN 30.9 pg (27.0-33.0); MEAN CORPUSCULAR HGB CONC 32.5 g/dl (32.0-36.5); MEAN CORPUSCULAR VOLUME 95.1 fl (80.0-96.0); MONO # 0.5 10^3/uL (0.0-0.8); MONO % 5.7 % (2.0-8.0); NEUTROPHILS # 6.2 10^3/uL (1.5-8.5); NEUTROPHILS % 70.6 % (36.0-66.0); PLATELET COUNT, AUTOMATED 293 10^3/uL (150-450); WHITE BLOOD COUNT 8.7 10^3/uL (4.0-10.0)
[2024-06-13 19:05] LABS: HEMOGLOBIN A1c 4.8 % (4.0-6.0)
[2024-06-13 19:14] LABS: ALBUMIN 3.8 G/DL (3.2-5.2); ALKALINE PHOSPHATASE 80 U/L (35-104); ALT/SGPT 23 U/L (7.0-40); AST/SGOT 20 U/L (<34); BILIRUBIN,TOTAL 0.5 MG/DL (0.3-1.2); BLOOD UREA NITROGEN 9 MG/DL (9-23); CALCIUM LEVEL 8.3 MG/DL (8.5-10.1); CARBON DIOXIDE LEVEL 25 MMOL/L (20-31); CHLORIDE LEVEL 107 MMOL/L (98-107); CHOLESTEROL LEVEL 165 MG/DL (<200); CHOLESTEROL RISK RATIO 3.41 (<5); CREATININE FOR GFR 0.75 MG/DL (0.55-1.30); GLOMERULAR FILTRATION RATE > 60.0 (>60); GLUCOSE, FASTING 84 MG/DL (60-100); HDL CHOLESTEROL 48.3 MG/DL (>40); LDL CHOLESTEROL 92.5 MG/DL (<100); NON-HDL-C 116.7 MG/DL; POTASSIUM SERUM 4.2 MMOL/L (3.5-5.1); SODIUM LEVEL 142 MMOL/L (136-145); THYROXINE (T4) 10.6 UG/DL (4.5-10.9); TOTAL PROTEIN 6.9 G/DL (5.7-8.2); TRIGLYCERIDES LEVEL 121 MG/DL (<150)
[2024-06-13 19:15] LABS: THYROID STIMULATING HORMONE 6.027 uIU/ML (0.55-4.78); TOTAL 25(OH) VITAMIN D 16.1 NG/ML (20.0-100.0)
[2024-06-13 19:18] LABS: FREE THYROXINE INDEX 3.8 % (1.3-4.8)
== END ==
LOC: M WUC 11:39
DX: E03.9 Hypothyroidism, unspecified (principal); F41.9 Anxiety disorder, unspecified; Z79.899 Other long term (current) drug therapy; E66.9 Obesity, unspecified; E55.9 Vitamin D deficiency, unspecified

== ENCOUNTER → 2024-09-19 | Outpatient (CLI) | payer OTHER ==
[2024-09-19 10:52] LABS: FREE T4 0.86 NG/DL (0.89-1.76); THYROID STIMULATING HORMONE 81.032 uIU/ML (0.55-4.78)
== END ==
LOC: M PLALAB 08:18
PROVIDERS: ATTEND Nurse Practitioner Family
DX: E89.0 Postprocedural hypothyroidism (principal)

== ENCOUNTER → 2024-09-19 | Outpatient (CLI) | payer OTHER ==
[2024-09-19 10:24] LABS: HEMATOCRIT 40.2 % (36.0-47.0); HEMOGLOBIN 13.4 g/dl (12.0-15.5); MEAN CORPUSCULAR HEMOGLOBIN 30.9 pg (27.0-33.0); MEAN CORPUSCULAR HGB CONC 33.3 g/dl (32.0-36.5); MEAN CORPUSCULAR VOLUME 92.8 fl (80.0-96.0); PLATELET COUNT, AUTOMATED 267 10^3/uL (150-450); RED BLOOD COUNT 4.33 10^6/uL (4.00-5.40); WHITE BLOOD COUNT 9.7 10^3/uL (4.0-10.0)
[2024-09-19 11:12] LABS: TOTAL 25(OH) VITAMIN D 11.9 NG/ML (20.0-100.0)
[2024-09-19 11:22] LABS: ALBUMIN 3.8 G/DL (3.2-5.2); ALKALINE PHOSPHATASE 86 U/L (35-104); ALT/SGPT 24 U/L (7.0-40); AST/SGOT 26 U/L (<34); BILIRUBIN,TOTAL 0.6 MG/DL (0.3-1.2); BLOOD UREA NITROGEN 9 MG/DL (9-23); CALCIUM LEVEL 8.2 MG/DL (8.5-10.1); CARBON DIOXIDE LEVEL 26 MMOL/L (20-31); CHLORIDE LEVEL 105 MMOL/L (98-107); CHOLESTEROL LEVEL 170 MG/DL (<200); CHOLESTEROL RISK RATIO 3.73 (<5); CREATININE FOR GFR 0.81 MG/DL (0.55-1.30); GLOMERULAR FILTRATION RATE > 90.0 (>60); GLUCOSE, FASTING 91 MG/DL (60-100); HDL CHOLESTEROL 45.5 MG/DL (>40); LDL CHOLESTEROL 96.7 MG/DL (<100); NON-HDL-C 124.5 MG/DL; POTASSIUM SERUM 3.9 MMOL/L (3.5-5.1); SODIUM LEVEL 142 MMOL/L (136-145); TRIGLYCERIDES LEVEL 139 MG/DL (<150)
[2024-09-19 11:58] LABS: HEMOGLOBIN A1c 4.9 % (4.0-6.0)
== END ==
LOC: M PLALAB 08:17
DX: E03.9 Hypothyroidism, unspecified (principal); F41.9 Anxiety disorder, unspecified; Z79.899 Other long term (current) drug therapy; E66.9 Obesity, unspecified; E55.9 Vitamin D deficiency, unspecified

== ENCOUNTER → 2025-02-12 | Outpatient (CLI) | payer OTHER ==
[~2025-02-12] MED LIST changes: -IBUP-1022 PO; +IBUP600T42 PO
[2025-02-12 15:29] LABS: FREE T4 1.61 NG/DL (0.89-1.76)
== END ==
LOC: M PLALAB 10:06
PROVIDERS: ATTEND Nurse Practitioner Family
DX: E89.0 Postprocedural hypothyroidism (principal)